=== PATIENT | male | born 1960 | race Caucasian/White ===

== ENCOUNTER → 2016-10-03 | Outpatient (CLI) | payer OTHER ==
[~2016-10-03] MED LIST: /WARF25TA; ACET500C PO; ACET50TAOT PO; ACET65TA; ALBU17IN INH; ALBU2EL PO; ALBU83IN INH; AMOX PO; AMPICILLIN PO; ANEXSIA5 PO; AUGM875T27 PO; BENZ100C5 PO; BISA5TAB7 PO; CEPA5.4L2 PO; CHLO0.124 MT; CLON-412 PO; COMP1TAB PO; DARV100T; DITR5TAB PO; DOCU10CA PO; DOXY100C PO; DOXY100T16 PO; FENT12PA TD; FLOM5CAP PO; GABA300C3 PO; IBUP-1114 PO; IBUP200C PO; ISOVUE-370 76% 100ML VIAL (Q9967) As Ordered ONE; LEVA500T PO; LIDO PO; LIPI20TA PO; LORA10TA2 PO; MAALOX PO; MAGICMW MT; MELO15TA4 PO; MOBI7.5T10 PO; MORP-38 PO; NAPR250T2 PO; NAPR250T45 PO; NAPR500T2 PO; OMEP20CA3 PO; ONDA1TAB15 PO; ONDA4SOL PO; OXYC10TA97; OXYC1SOL PO; OXYCO5TA PO; PENT10CA PO; PERC5TAB6 PO; PERC5TAB8; POLY33502 PO; PRED20TA PO; PROA1AER INH; ROXI1TAB2 PO; SENN8.6T8 PO; TAMS0.4C2 PO; TIZA2CAP3 PO; TIZA4CAP3 PO; TRAM50TA2 PO; TYLE325T5 PO; TYLE650T25 PO; VICO5TAB; [UNRECOGNIZED DRUG - OTHER] PO
--- NOTE | 2016-10-04 10:49 | REP ---
Clinical: Flank pain. Technique: Precontrast, contrast enhanced, and delayed images of the abdomen and pelvis using 100 ml Isovue 370 intravenous contrast material with delayed coronal and sagittal re-formations. Comparison: 06/04/2016. Findings: Liver demonstrates scattered small poorly defined areas of low density - some of which demonstrates surrounding enhancement concerning for metastatic disease which represents a change from prior examination. Spleen, pancreas, gallbladder, bilateral adrenal glands and kidneys appear normal. Delayed images demonstrate normal symmetric excretion into the renal collecting system and proximal ureters. The enteric system is without obstruction or acute inflammatory process. There is evidence for surgical procedure involving the bladder and small bowel in the lower abdomen/pelvis which may be related to the patient's given history of bladder cancer on comparison CT examination dated 06/04/2016. Within the right inguinal region is an ill-defined area of enhancing soft tissue which is concerning for adenopathy or metastatic deposit measuring approximately 1.5 x 2.5 cm (image 125). There is new lower abdominal (images 81-90) and retroperitoneal adenopathy with 2.1 cm nodes in the paracaval retroperitoneal space at the level of the right kidney (image 59). Few right inguinal lymph nodes are also identified measuring up to 12 mm. Atherosclerotic changes to the aorta and vasculature noted without aneurysm. No ascites. No free air. Surrounding musculoskeletal structures demonstrate age-related degenerative changes. Lung bases are clear. Impression: 1. Subtle poorly defined low density changes scattered within the liver some of which demonstrate surrounding enhancement concerning for metastatic disease representing a change from prior examination. New scattered abdominal and retroperitoneal adenopathy. 2. Small area of enhancing soft tissue in the right groin concerning for adenopathy or metastatic deposit. 3. Postsurgical changes involving the bladder and adjacent small bowel similar to prior examination. 4. Normal appearance to the bilateral kidneys and proximal to mid ureters. Signed by Jose De Jesus Brody MD 10/04/2016 10:41 A
== END ==
LOC: M RAD 07:44
PROVIDERS: ATTEND Urology
DX: R10.9 Unspecified abdominal pain (principal)
CPT/HCPCS: 74178; Q9967

== ENCOUNTER → 2016-10-03 | Outpatient (CLI) | payer OTHER ==
[~2016-10-03] MED LIST changes: -ISOVUE-370 76% 100ML VIAL (Q9967) As Ordered ONE
--- NOTE | 2016-10-03 09:21 | REP ---
CT chest without contrast, 10/03/2016: Indication: Follow up pulmonary nodules; history of laryngeal cancer. Comparison: CT chest 06/04/2016, CTA chest 11/26/2015, CT chest without contrast 03/14/2015. Findings: The thoracic aorta is without aneurysm. There are multiple subcentimeter mediastinal nodes largest 10 mm in the prevascular space, with progression. Tracheostomy tube is identified with tip 4 cm above bonny. There is bilateral hyperinflation. Minimal interstitial prominence is seen within the lung bases bilaterally. Small area of scarring is noted within the lingula and lateral basilar segment of the left lower lobe. There are no pulmonary nodules, alveolar infiltrates or pleural effusions. Visualized portions of the liver demonstrate enlarged left lobe and slightly heterogeneous parenchyma. Impression: Tracheostomy tube and right IJ venous catheter are again identified in satisfactory position. Stable mediastinal adenopathy with nodes measuring up to 10 mm in the prevascular space, with progression. Fibrotic scarring in the lingula and in the lateral right lower lobe. Signed by Josette Swain MD 10/04/2016 07:23 P
== END ==
LOC: M RAD 07:40
PROVIDERS: ATTEND Internal Medicine Pulmonary Disease
DX: R91.8 Other nonspecific abnormal finding of lung field (principal); Z93.0 Tracheostomy status

== ENCOUNTER → 2016-10-05 | Outpatient (CLI) | payer OTHER ==
[2016-10-05 16:06] LABS: MEAN CORPUSCULAR HEMOGLOBIN 33.1 pg (27.0-33.0); MEAN CORPUSCULAR HGB CONC 32.6 g/dl (32.0-36.5); MEAN CORPUSCULAR VOLUME 101.5 fl (80.0-96.0); RED CELL DISTRIBUTION WIDTH 14.1 % (11.5-14.5); WHITE BLOOD COUNT 10.7 K/mm3 (4.0-10.0)
[2016-10-05 16:14] LABS: ANION GAP 9 MEQ/L (8-16); BLOOD UREA NITROGEN 24 MG/DL (7-18); CALCIUM LEVEL 9.8 MG/DL (8.5-10.1); CARBON DIOXIDE LEVEL 27 MEQ/L (21-32); CHLORIDE LEVEL 102 MEQ/L (98-107); CREATININE FOR GFR 1.04 MG/DL (0.70-1.30); GLOMERULAR FILTRATION RATE > 60.0 (>56); GLUCOSE, FASTING 111 MG/DL (70-105); POTASSIUM SERUM 3.9 MEQ/L (3.5-5.1); SODIUM LEVEL 138 MEQ/L (136-145)
== END ==
LOC: M LAB 15:11
PROVIDERS: ATTEND Urology
DX: R10.9 Unspecified abdominal pain (principal)

== ENCOUNTER 2016-11-14 06:46 | Emergency (ER) | payer OTHER ==
[~2016-11-14 06:46] MED LIST changes: +OXYC-517 PO; -OXYCO5TA PO
--- NOTE | 2016-11-14 08:25 | EDDOCDS ---
Nurse's Notes [facility] Name: Martínez Abbasi Age: 55 yrs Sex: Male : 1960 Arrival Date: 11/14/2016 Time: 06:46 Bed 12 Private MD: Diagnosis: Tracheostomy complications Presentation: 11/14 06:53 Presenting complaint: Patient states: trach tube fell out, unable to replace it. af2 07:05 Presenting complaint: pt was on commode attempting bm when trach tube came out, attempt af2 to replace unsuccessful. states tube has been out for 5 hours. Adult Sepsis Screening: The patient does not have new or worsening altered mentation. Patient's respiratory rate is less than 22. Systolic blood pressure is greater than 100. Patient has a qSOFA score of 0- Negative Sepsis Screen. Suicide/Homicide risk assessment- the patient denies having any suicidal and/or homicidal ideations and does not present with any other emotional, behavioral or mental health complaints. 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 Transition of care: patient was not received from another setting of care. 07:05 Acuity: PHILIPPE Level 3 af2 07:05 Method Of Arrival: Walkin/Carried/Asstd af2 Triage Assessment: 07:08 General: Appears in no apparent distress, Behavior is cooperative. Pain: Denies pain. af2 Pt Declines HIV testing. Respiratory: Airway via trache Respiratory effort is even. Derm: Skin is normal. Historical: - Allergies: No known drug Allergies; - Home Meds: 1. prochlorperazine maleate 10 mg Oral tab every 6 hours as needed 2. ondansetron HCl 4 mg Oral tab every 4 hours as needed 3. hydrocodone-acetaminophen 7.5-325 mg Oral tab up to 12 daily 4. morphine 60 mg Oral CERP 1 cap 2 times per day 5. Compazine 5 mg Oral tab Unknown - PMHx: Bladder Cancer; laryngeal cancer; - PSHx: Tracheostomy; Bladder scraping X2; Bladder removed and reconstructed from Large intestine; - Social history: Smoking status: Patient uses tobacco products, current every day smoker. No barriers to communication noted, The patient speaks fluent [place] Leonean. - : The pt / caregiver states he / she is not on anticoagulants. Screenin:43 Screening information is obtained from the patient. Fall risk: No risks identified. hs1 Assistance ADL's: requires no assistance with activities of daily living. Abuse/DV Screen: The patient / caregiver reports he/she is: not in a situation that causes fear, pain or injury. Nutritional screening: No deficits noted. Advance Directives: There is no active DNR order. home support is adequate. Assessment: 07:02 General: Behavior is appropriate for age, cooperative, patient states 6 FR Fenestrated hs1 Shilley Trach. Patient tried inserting it at home. Tracheostomy is not reddened or inflamed. No drainage noted. . 07:44 General: Appears in no apparent distress, Trach tube in place. Patient coughing. hs1 Respiratory suctioning and assisting with patient securing ostomy appliance. . Respiratory: Airway is patent Respiratory effort is even, unlabored, Respiratory pattern is regular, symmetrical. 08:23 General: Appears in no apparent distress, comfortable, Behavior is appropriate for age, hs1 cooperative. Pain: Denies pain. Respiratory: Airway is patent via trache Respiratory effort is even, unlabored, Respiratory pattern is regular, symmetrical. Derm: Skin is pink, warm & dry. normal. Vital Signs: 07:08 BP 97 / 52 RA Sitting (auto/reg); Pulse 76; Resp 18; Temp 96.7(TE); Pulse Ox 96% on d R/A; Weight 72.57 kg (R); Height 5 ft. 5 in. (165.10 cm) (R); Pain 5/10; 08:19 BP 93 / 56; Pulse 101; Resp 18; Temp 96.8(O); Pulse Ox 98% on R/A; Pain 5/10; nb2 07:08 Body Mass Index 26.63 (72.57 kg, 165.10 cm) [facility] ED Course: 06:48 Patient visited by Sobeida Robertson Reg. hs2 06:48 Patient moved to Waiting hs2 06:53 Telma Tian RN is Primary Nurse. af2 06:53 Patient moved to 12 af2 06:54 Patient visited by Telma Tian RN. kas2 07:06 Triage Initiated af2 07:09 Patient visited by Martínez Centeno PCA. jrd 07:09 Patient visited by Alda Hood RN. af2 07:14 Jessenia Clemons MD is Attending Physician. sd1 07:17 Patient visited by Jessenia Clemons MD. sd1 07:43 No IV's were initiated during this patient's visit. hs1 07:44 Assist provider with tracheostomy using cuffless fenestrated # 6 Shiley. replaced. hs1 Performed by Jessenia Clemons MD Patient tolerated well. Sales Associate Fishing Soraida assisting. . 07:46 The patient / caregiver is instructed regarding the plan of care and ED course. hs1 07:47 Patient visited by Barbara Dong RN. hs1 08:05 Primary Nurse role handed off by Telma Tian,RN mlb1 08:05 Patient visited by Kaylah Zuñiga. nb2 08:05 Diet: pt given miah bernie per his request. OK with Dr. Segovia. Tolerated well. . nb2 08:11 Abhinav Venegas is Referral Physician. sd1 08:20 Patient visited by Kaylah Zuñiga. nb2 RT: 08:05 Placed PT ACCIDENTALLY EXTUBATED TRACH AT HOME, SIZE SIX UNCUFFED SHILEY TRACH ac1 INSERTED. PT JESS PROCEDURE WELL. AIRWAY PATENT, PT COUGHING SECRETIONS THROUGH IT. NO SOB. Order Results: There are currently no results for this order. Outcome: 08:11 Discharge ordered by Provider. sd1 08:24 Patient left the ED. hs1 Signatures: Jessenia Clemons MD MD sd1 Soraida Geiger,RT RT ac1 Mohan Edward RN RN mlb1 Barbara Dong, RN RN hs1 Martínez Centeno, TELEMETRY TECHNICIAN TELEMETRY TECHNICIAN jrd Alda Hood,RN RN af2 Sobeida Robertson, Reg Reg hs2 Telma Tian,MILES RN [facility]2 Kaylah Zuñiga nb2 MTDD
--- NOTE | 2016-11-14 08:25 | EDDOCDS ---
Physician Documentation [facility] Name: Martínez Abbasi Age: 55 yrs Sex: Male : 1960 Arrival Date: 11/14/2016 Time: 06:46 Bed 12 Private MD: Disposition: 11/14/16 08:11 Discharged to Home/Self Care. Impression: Tracheostomy complications. - Condition is Stable. - Discharge Instructions: Care of a Tracheostomy Tube, Care of a Tracheostomy Tube, [id number]. - Medication Reconciliation, Local Pharmacy Hours form. - Follow up: Abhinav Venegas; When: Call to arrange an appointment. - Problem is new. - Symptoms are resolved. Historical: - Allergies: No known drug Allergies; - Home Meds: 1. prochlorperazine maleate 10 mg Oral tab every 6 hours as needed 2. ondansetron HCl 4 mg Oral tab every 4 hours as needed 3. hydrocodone-acetaminophen 7.5-325 mg Oral tab up to 12 daily 4. morphine 60 mg Oral CERP 1 cap 2 times per day 5. Compazine 5 mg Oral tab Unknown - PMHx: Bladder Cancer; laryngeal cancer; - PSHx: Tracheostomy; Bladder scraping X2; Bladder removed and reconstructed from Large intestine; - Social history: Smoking status: Patient uses tobacco products, current every day smoker. No barriers to communication noted, The patient speaks fluent Luxembourgish. - : The pt / caregiver states he / she is not on anticoagulants. Vital Signs: 11/14 07:08 BP 97 / 52 RA Sitting (auto/reg); Pulse 76; Resp 18; Temp 96.7(TE); Pulse Ox 96% on jrd R/A; Weight 72.57 kg / 159.99 lbs (R); Height 5 ft. 5 in. (165.10 cm) (R); Pain 5/10; 08:19 BP 93 / 56; Pulse 101; Resp 18; Temp 96.8(O); Pulse Ox 98% on R/A; Pain 5/10; nb2 07:08 Body Mass Index 26.63 (72.57 kg, 165.10 cm) jrcynthia MDM: 07:20 Call Respiratory ordered. sd1 07:24 Call Respiratory complete. jrd 07:41 Financial registration complete. lg Signatures: Jessenia Clemons MD MD sd1 Delaney Villarreal, Reg Reg lg Barbara Dong, RN RN hs1 Martínez Centeno, AUTOMOBILE UPHOLSTERY TRIM INSTALLER AUTOMOBILE UPHOLSTERY TRIM INSTALLER jrd Alda Hood,RN RN af2 HUSSEIND
[2016-11-15] MEDS ORDERED: ZOFR8TAB PO (20:11)
[2016-11-15] MEDS ORDERED: MORP60TA PO (20:11)
[2016-11-15] MEDS ORDERED: PROC10TA PO (20:11)
[2016-11-15] MEDS ORDERED: HYDR-3716 PO (20:11)
[2016-11-15] MEDS ORDERED: PROM25TA PO (20:11)
--- NOTE | 2016-11-16 09:25 | EDDOCDS ---
Nurse's Notes [facility] Name: Martínez Abbasi Age: 55 yrs Sex: Male : 1960 Arrival Date: 11/14/2016 Time: 06:46 Bed 12 Private MD: Diagnosis: Tracheostomy complications Presentation: 11/14 06:53 Presenting complaint: Patient states: trach tube fell out, unable to replace it. af2 07:05 Presenting complaint: pt was on commode attempting bm when trach tube came out, attempt af2 to replace unsuccessful. states tube has been out for 5 hours. Adult Sepsis Screening: The patient does not have new or worsening altered mentation. Patient's respiratory rate is less than 22. Systolic blood pressure is greater than 100. Patient has a qSOFA score of 0- Negative Sepsis Screen. Suicide/Homicide risk assessment- the patient denies having any suicidal and/or homicidal ideations and does not present with any other emotional, behavioral or mental health complaints. Status: Patient is not a technical services librarian or dependent. Transition of care: patient was not received from another setting of care. 07:05 Acuity: PHILIPPE Level 3 af2 07:05 Method Of Arrival: Walkin/Carried/Asstd af2 Triage Assessment: 07:08 General: Appears in no apparent distress, Behavior is cooperative. Pain: Denies pain. af2 Pt Declines HIV testing. Respiratory: Airway via trache Respiratory effort is even. Derm: Skin is normal. Historical: - Allergies: No known drug Allergies; - Home Meds: 1. prochlorperazine maleate 10 mg Oral tab every 6 hours as needed 2. ondansetron HCl 4 mg Oral tab every 4 hours as needed 3. hydrocodone-acetaminophen 7.5-325 mg Oral tab up to 12 daily 4. morphine 60 mg Oral CERP 1 cap 2 times per day 5. Compazine 5 mg Oral tab Unknown - PMHx: Bladder Cancer; laryngeal cancer; - PSHx: Tracheostomy; Bladder scraping X2; Bladder removed and reconstructed from Large intestine; - Social history: Smoking status: Patient uses tobacco products, current every day smoker. No barriers to communication noted, The patient speaks fluent Somali. - : The pt / caregiver states he / she is not on anticoagulants. Screenin:43 Screening information is obtained from the patient. Fall risk: No risks identified. hs1 Assistance ADL's: requires no assistance with activities of daily living. Abuse/DV Screen: The patient / caregiver reports he/she is: not in a situation that causes fear, pain or injury. Nutritional screening: No deficits noted. Advance Directives: There is no active DNR order. home support is adequate. Assessment: 07:02 General: Behavior is appropriate for age, cooperative, patient states 6 FR Fenestrated hs1 Shilley Trach. Patient tried inserting it at home. Tracheostomy is not reddened or inflamed. No drainage noted. . 07:44 General: Appears in no apparent distress, Trach tube in place. Patient coughing. hs1 Respiratory suctioning and assisting with patient securing ostomy appliance. . Respiratory: Airway is patent Respiratory effort is even, unlabored, Respiratory pattern is regular, symmetrical. 08:23 General: Appears in no apparent distress, comfortable, Behavior is appropriate for age, hs1 cooperative. Pain: Denies pain. Respiratory: Airway is patent via trache Respiratory effort is even, unlabored, Respiratory pattern is regular, symmetrical. Derm: Skin is pink, warm & dry. normal. Vital Signs: 07:08 BP 97 / 52 RA Sitting (auto/reg); Pulse 76; Resp 18; Temp 96.7(TE); Pulse Ox 96% on d R/A; Weight 72.57 kg (R); Height 5 ft. 5 in. (165.10 cm) (R); Pain 5/10; 08:19 BP 93 / 56; Pulse 101; Resp 18; Temp 96.8(O); Pulse Ox 98% on R/A; Pain 5/10; nb2 07:08 Body Mass Index 26.63 (72.57 kg, 165.10 cm) [facility] ED Course: 06:48 Patient visited by Sobeida Robertson Reg. hs2 06:48 Patient moved to Waiting hs2 06:53 Telma Tian RN is Primary Nurse. af2 06:53 Patient moved to 12 af2 06:54 Patient visited by Telma Tian RN. kas2 07:06 Triage Initiated af2 07:09 Patient visited by Martínez Centeno PCA. jrd 07:09 Patient visited by Alda Hood RN. af2 07:14 Jessenia Clemons MD is Attending Physician. sd1 07:17 Patient visited by Jessenia Clemons MD. sd1 07:43 No IV's were initiated during this patient's visit. hs1 07:44 Assist provider with tracheostomy using cuffless fenestrated # 6 Shiley. replaced. hs1 Performed by Jessenia Clemons MD Patient tolerated well. Hydro Station Operator Soraida assisting. . 07:46 The patient / caregiver is instructed regarding the plan of care and ED course. hs1 07:47 Patient visited by Barbara Dong RN. hs1 08:05 Primary Nurse role handed off by Telma Tian,MILES mlb1 08:05 Patient visited by Kaylah Zuñiga. nb2 08:05 Diet: pt given miah bernie per his request. OK with Dr. Segovia. Tolerated well. . nb2 08:11 Abhinav Venegas is Referral Physician. sd1 08:20 Patient visited by Kaylah Zuñiga. nb2 08:37 [facility] Payment Agreement was scanned into [employer] and attached to record. lg RT: 08:05 Placed PT ACCIDENTALLY EXTUBATED TRACH AT HOME, SIZE SIX UNCUFFED SHILEY TRACH ac1 INSERTED. PT JESS PROCEDURE WELL. AIRWAY PATENT, PT COUGHING SECRETIONS THROUGH IT. NO SOB. Order Results: There are currently no results for this order. Outcome: 08:11 Discharge ordered by Provider. sd1 08:24 Patient left the ED. hs1 Signatures: Jessenia Clemons MD MD sd1 Delaney Villarreal, Reg Reg lg Soraida Geiger,RT RT ac1 Mohan Edward RN RN mlb1 Barbara Dong, MILES RN hs1 Martínez Centeno, POLICE AND FIRE DISPATCHER POLICE AND FIRE DISPATCHER Alda Barrett,RN RN af2 Sobeida Robertson, Reg Reg hs2 Telma TianRN RN [facility] Kaylah Zuñiga nb Chart Complete MTDD
--- NOTE | 2016-11-16 09:25 | EDDOCDS ---
Physician Documentation [facility] Name: Martínez Abbasi Age: 55 yrs Sex: Male : 1960 Arrival Date: 11/14/2016 Time: 06:46 Bed 12 Private MD: Disposition: 11/14/16 08:11 Discharged to Home/Self Care. Impression: Tracheostomy complications. - Condition is Stable. - Discharge Instructions: Care of a Tracheostomy Tube, Care of a Tracheostomy Tube, [id number]. - Medication Reconciliation, Local Pharmacy Hours form. - Follow up: Abhinav Venegas; When: Call to arrange an appointment. - Problem is new. - Symptoms are resolved. Historical: - Allergies: No known drug Allergies; - Home Meds: 1. prochlorperazine maleate 10 mg Oral tab every 6 hours as needed 2. ondansetron HCl 4 mg Oral tab every 4 hours as needed 3. hydrocodone-acetaminophen 7.5-325 mg Oral tab up to 12 daily 4. morphine 60 mg Oral CERP 1 cap 2 times per day 5. Compazine 5 mg Oral tab Unknown - PMHx: Bladder Cancer; laryngeal cancer; - PSHx: Tracheostomy; Bladder scraping X2; Bladder removed and reconstructed from Large intestine; - Social history: Smoking status: Patient uses tobacco products, current every day smoker. No barriers to communication noted, The patient speaks fluent Vietnamese. - : The pt / caregiver states he / she is not on anticoagulants. Vital Signs: 11/14 07:08 BP 97 / 52 RA Sitting (auto/reg); Pulse 76; Resp 18; Temp 96.7(TE); Pulse Ox 96% on jrd R/A; Weight 72.57 kg / 159.99 lbs (R); Height 5 ft. 5 in. (165.10 cm) (R); Pain 5/10; 08:19 BP 93 / 56; Pulse 101; Resp 18; Temp 96.8(O); Pulse Ox 98% on R/A; Pain 5/10; nb2 07:08 Body Mass Index 26.63 (72.57 kg, 165.10 cm) [facility] MDM: 07:20 Call Respiratory ordered. sd1 07:24 Call Respiratory complete. jrd 07:41 Financial registration complete. lg 08:37 [facility] Payment Agreement was scanned into [employer] and attached to record. lg Signatures: Jessenia Clemons MD MD sd1 Delaney Villarreal, Reg Reg lg Barbara Dong, RN RN hs1 Martínez Centeno, REVA SENIOR DIRECTOR MARKETING jrd Alda Hood,RN RN af2 The chart was reviewed and I authenticate all verbal orders and agree with the evaluation and treatment provided.Attachments: 08:37 [facility] Payment Agreement lg Chart Complete MTDD
--- NOTE | 2016-11-16 09:25 | EDDOCDS ---
Physician Documentation [facility] Name: Martínez Abbasi Age: 55 yrs Sex: Male : 1960 Arrival Date: 11/14/2016 Time: 06:46 Bed 12 Private MD: Disposition: 11/14/16 08:11 Discharged to Home/Self Care. Impression: Tracheostomy complications. - Condition is Stable. - Discharge Instructions: Care of a Tracheostomy Tube, Care of a Tracheostomy Tube, Lsor-[id number]. - Medication Reconciliation, Local Pharmacy Hours form. - Follow up: Abhinav Venegas; When: Call to arrange an appointment. - Problem is new. - Symptoms are resolved. Historical: - Allergies: No known drug Allergies; - Home Meds: 1. prochlorperazine maleate 10 mg Oral tab every 6 hours as needed 2. ondansetron HCl 4 mg Oral tab every 4 hours as needed 3. hydrocodone-acetaminophen 7.5-325 mg Oral tab up to 12 daily 4. morphine 60 mg Oral CERP 1 cap 2 times per day 5. Compazine 5 mg Oral tab Unknown - PMHx: Bladder Cancer; laryngeal cancer; - PSHx: Tracheostomy; Bladder scraping X2; Bladder removed and reconstructed from Large intestine; - Social history: Smoking status: Patient uses tobacco products, current every day smoker. No barriers to communication noted, The patient speaks fluent Indonesian. - : The pt / caregiver states he / she is not on anticoagulants. Vital Signs: 11/14 07:08 BP 97 / 52 RA Sitting (auto/reg); Pulse 76; Resp 18; Temp 96.7(TE); Pulse Ox 96% on jrd R/A; Weight 72.57 kg / 159.99 lbs (R); Height 5 ft. 5 in. (165.10 cm) (R); Pain 5/10; 08:19 BP 93 / 56; Pulse 101; Resp 18; Temp 96.8(O); Pulse Ox 98% on R/A; Pain 5/10; nb2 07:08 Body Mass Index 26.63 (72.57 kg, 165.10 cm) [facility] MDM: 07:20 Call Respiratory ordered. sd1 07:24 Call Respiratory complete. jrd 07:41 Financial registration complete. lg 08:37 [facility] Payment Agreement was scanned into [email or web address] and attached to record. lg Signatures: Jessenia Clemons MD MD sd1 Delaney Villarreal, Reg Reg lg Barbara Dong, RN RN hs1 Martínez Centeno, [employer] PHYSICS TECHNICAL OFFICER jrd Alda Hood,RN RN af2 The chart was reviewed and I authenticate all verbal orders and agree with the evaluation and treatment provided.Attachments: 08:37 [facility] Payment Agreement lg Chart Complete MTDD
== END 2016-11-14 08:24 | disposition home or self-care (01) ==
LOC: M ED 06:46
DX: J95.09 Other tracheostomy complication (principal); C32.9 Malignant neoplasm of larynx, unspecified; C67.9 Malignant neoplasm of bladder, unspecified; F17.210 Nicotine dependence, cigarettes, uncomplicated; Z79.899 Other long term (current) drug therapy

== ENCOUNTER 2016-11-15 16:05 | Inpatient (IN) | payer OTHER ==
[~2016-11-15] VITALS: Ht 165.1 cm; Wt 74.2 kg
--- NOTE | 2016-11-15 16:58 | REP ---
Clinical: Shortness of breath. Technique: PA and lateral. Comparison: 03/24/2016. Findings: Ofocea-S-Ywbu with tip in the SVC remains stable. Tracheostomy overlies the airway. Mediastinum and cardiac silhouette are normal. The lung oliveira are clear and without acute consolidation, effusion, or pneumothorax. Skeletal structures are intact. Impression: Stable chest x-ray. No acute cardiopulmonary process appreciated. Signed by Jose De Jesus Brody MD 11/15/2016 04:50 P
[2016-11-15 17:30] LABS: DIFF SLIDE NUMBER 251; MEAN CORPUSCULAR HEMOGLOBIN 28.4 pg (27.0-33.0); MEAN CORPUSCULAR HGB CONC 28.9 g/dl (32.0-36.5); MEAN CORPUSCULAR VOLUME 98.6 fl (80.0-96.0); PLATELET COUNT, AUTOMATED 226 k/mm3 (150-450)
[2016-11-15 17:39] LABS: CALCIUM LEVEL 9.8 MG/DL (8.5-10.1); CREATININE FOR GFR 2.84 MG/DL (0.70-1.30); GLOMERULAR FILTRATION RATE 24.8 (>56)
[2016-11-15 17:41] LABS: WHITE BLOOD COUNT 34.1 K/mm3 (4.0-10.0)
[2016-11-15 17:44] LABS: POTASSIUM SERUM 6.1 MEQ/L (3.5-5.1)
[2016-11-15 17:46] LABS: BANDS 4 % (< 11)
[2016-11-15 17:47] LABS: ANISOCYTOSIS 1+; HYPOCHROMASIA 2+; POLYCHROMASIA 1+
[2016-11-15] MEDS ORDERED: CALCIUM CHLORIDE 10% 1 GM/10 ML SYR As Ordered ONE ×2 (18:09→18:13)
[2016-11-15] MEDS ORDERED: HumuLIN R (REGULAR) INSULIN (NovoLIN R) **100U/ML** PER UNIT As Ordered ONE ×2 (18:09→19:31)
[2016-11-15] MEDS ORDERED: CEFEPIME INJ 2 GM VIAL (MAXIPIME) (J0692) As Ordered ONE (18:34)
[2016-11-15 18:37] LABS: VENOUS BASE EXCESS -2.4 (-2.0-2.0); VENOUS O2 SATURATION 99.2 % (60.0-80.0); VENOUS PARTIAL PRESSURE CO2 38.1 mmHg (38.0-50.0); VENOUS PARTIAL PRESSURE O2 138.7 mmHg (30.0-50.0); VENOUS STANDARD HCO3 22.5 MEQ/L; VENOUS TOTAL CO2 23.5 MEQ/L (24.0-28.0)
[2016-11-15 18:41] LABS: INR 1.22
[2016-11-15 18:43] LABS: ABG BASE EXCESS -2.1 (-2.0-2.0); ABG DEVICE NASAL CANN; ABG HCO3 23.2 MEQ/L (22.0-26.0); ABG PARTIAL PRESSURE CO2 42.1 mmHg (35.0-45.0); ABG PARTIAL PRESSURE O2 104.5 mmHg (75.0-100.0); ABG STANDARD HCO3 22.7 MEQ/L (22.0-26.0); ABG TOTAL CO2 24.5 MEQ/L (22.0-29.0); ABG pH (ARTERIAL) 7.359 UNITS (7.350-7.450)
[2016-11-15] MEDS ORDERED: INSULIN HUMAN REGULAR 100 UNITS in NS 99 ML IV SCH (19:00)
[2016-11-15] MEDS ORDERED: D5W/0.45% SODIUM CHLORIDE 1,000 ML IV SCH (19:33)
[2016-11-15 19:40] LABS: ALBUMIN 1.9 GM/DL (3.2-5.2); ALBUMIN/GLOBULIN RATIO 0.42 (1.00-1.93); BILIRUBIN,DIRECT 0.2 MG/DL (0.0-0.2); BILIRUBIN,TOTAL 0.3 MG/DL (0.2-1.0); CALCIUM LEVEL 10.6 MG/DL (8.5-10.1); CREATININE FOR GFR 2.76 MG/DL (0.70-1.30); FREE T4 0.8 NG/DL (0.76-1.46); GLOMERULAR FILTRATION RATE 25.6 (>56); TOTAL PROTEIN 6.4 GM/DL (6.4-8.2)
[2016-11-15] MEDS ORDERED: CEFEPIME HCL 1 GM in D5W MINI-BAG PLUS 50 ML IV SCH (19:45)
[2016-11-15] MEDS ORDERED: VANCOMYCIN HCL 750 MG, VIAL MATE ADAPTER 1 EACH in D5W 250 ML IV SCH (19:45)
[2016-11-15 19:56] LABS: POTASSIUM SERUM 5.5 MEQ/L (3.5-5.1)
[2016-11-15] MEDS ORDERED: MORP60TA PO (20:11)
[2016-11-15] MEDS ORDERED: PROC10TA PO (20:11)
[2016-11-15] MEDS ORDERED: PROM25TA PO (20:11)
[2016-11-15] MEDS ORDERED: HYDR-3716 PO (20:11)
[2016-11-15] MEDS ORDERED: ZOFR8TAB PO (20:11)
--- NOTE | 2016-11-15 20:29 | PHACANCOPD ---
PHARMACY VANCOMYCIN DOSING Pt Demographics Demographics Patient Age:55 , Weight: , Gender: male Adjusted Body Weight Date: 11/15/16, Adjusted Body Weight: Kg Events Past 24 Hours Events Past 24 Hours: YES: Change in CrCl, Elevation in WBC, NO: Dialysis, Diuretic Therapy, Fever, Other, Pending Diagnostics, Pending Procedures Vancomycin Vancomycin indication: SEPSIS Vancomycin Target Ranges: 15-20 mcg/ml Vancomycin Load Y/N: No Load Dose Date Time Vancomycin Load Dose: Date: Time: Vancomycin Dose Date: 11/15/16. Current Vancomycin Dose: [1g IV q24h @21] Intermittent Dosing?: No Labs Labs Item Value Date Time White Blood Count 34.1 K/mm3 *H 11/15/16 1701 Creatinine 2.84 MG/DL H 11/15/16 1701 Creatinine 2.76 MG/DL H 11/15/16 1841 C-Reactive Protein, Quantitative 26.50 MG/DL H 11/15/16 1841 Micro Microbiology 11/15/16 Blood Culture, Received Pending 11/15/16 Blood Culture, Received Pending 11/15/16 Urine Culture, Received Pending Creatinine Clearance Date:11/15/16. Creatinine Clearance: [22 ml/min]. Assessment and Plan Maintaining Current Dose?: Yes Reason for dose change: No Dose Change Pharmacist Note Pharmacist Note Date: 11/15/16. Pharmacist note: pt has been admitted for sepsis, he has been started on cefepime and vancomycin. He has a Hx of MRSA - last urine culture on 09/26/15 DERRICK = 1. He is currently in acute renal failure, baseline SCr is ~1. I have started him on 1g IV q24h to be reassessed tomorrow morning based on renal function. We will continue to monitor. Kulwant Tian Pharm.D. Nov 15, 2016 20:29
[2016-11-15] MEDS ORDERED: PROMETHAZINE INJ 25 MG/ML VIAL (J2550) IV PRN (20:30)
--- NOTE | 2016-11-15 20:32 | REP ---
Clinical: Abdominal pain history of malignancy. Comparison: 10/03/2016. Findings: The liver demonstrates diffuse, marked metastatic disease which is considerably increased from prior examination. Moderate ascites along with retroperitoneal, mesenteric, and upper abdominal adenopathy is also increased and again consistent with metastatic disease. Fluid and soft tissue in a supraumbilical hernia is identified which may represent small nodular soft tissue metastatic deposits which is also increased from prior examination. The patient is noted to be status post bladder resection for neoplasm with neobladder creation and anastomoses to a small bowel which remain stable in appearance. Spleen, pancreas, gallbladder, bilateral adrenal glands and kidneys are relatively normal for noncontrast evaluation. Bilateral perinephric stranding is nonspecific and there is no evidence for hydroureteronephrosis. The enteric system is without obstruction or acute inflammatory process and scattered colonic diverticula noted without acute diverticulitis. No free air. Atherosclerotic changes of the vasculature noted without aortic aneurysm. Skeletal structures demonstrate diffuse degenerative changes as well as mixed sclerotic and lytic lesions predominant noted in the visualized thoracic and lumbar vertebral bodies as well as within the left bjorn sacrum which are increased from prior examination and consistent with osseous metastatic disease. The lung bases demonstrate chronic changes with bibasilar atelectasis and evidence for old healed left rib fracture. Impression: 1. Increasing hepatic metastatic disease, ascites, retroperitoneal, mesenteric and upper abdominal adenopathy and osseous lesions all consistent with increasing metastatic disease. 2. Postsurgical changes related to bladder resection and recreation remains stable and relatively normal. The kidneys are without hydroureteronephrosis. 3. The small and large bowel are without obstruction or obvious acute inflammatory process. Signed by Jose De Jesus Brody MD 11/15/2016 08:24 P
[2016-11-15] MEDS ORDERED: MORPHINE 4 MG/ML 1ML SYRINGE As Ordered ONE (20:34)
--- NOTE | 2016-11-15 20:58 | HPE ---
DATE OF ADMISSION: 11/15/2016 PRIMARY CARE PROVIDER: Dr. Martínez Edwards UROLOGIST: Dr. Miller ONCOLOGIST: Dr. Morel at [facility] Hematology/Oncology CHIEF COMPLAINT: Sudden difficulty in breathing from this morning, abdominal pain and several episodes of vomiting from this a.m. PAST MEDICAL HISTORY: 1. 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 2. 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 Underwent radical cystoprostatectomy, bilateral lymph node dissection and intracorporal neobladder urinary diversion in 2016. 3.Recurrence of vocal cord cancer around tracheostomy stoma in 2016. Patient restarted on radiation and chemotherapy. Last chemotherapy two weeks ago given by [facility]. Has tracheostomy since 2014. 4. Hypercholesterolemia. 5. Chronic obstructive pulmonary disease. 6. Hypertension. HISTORY OF PRESENT ILLNESS This is a 55-year-old male with laryngeal cancer since 2013 and tracheostomy since 2014 with recurrence of squamous cell cancer around the stoma in 2016. Bladder cancer with lymph node metastases in 2016. Recently found to have liver metastases and retroperitoneal lymphadenopathy in CT scan of September 2016 presented to the emergency room with one day history of sudden onset difficulty in breathing and also multiple episodes of vomiting, retrosternal and epigastric pain and odynophagia. Patient in the emergency department (ED) coughed up large mucous plug after which his breathing improved and he was a little comfortable. Lab work was done which showed the patient to have hyperglycemia with sugars greater than 800, hyperkalemia with potassium of 6.1, hyponatremia with sodium of 121 ad acute kidney injury with a creatinine of 2.4 and also had a WBC count of greater than 34,000. Patient has also a dirty urine. Patient was also found to have a lactate of 5.8. Patient was diagnosed with sepsis, source yet undetermined, could be urine or intraabdominal. Hyperglycemia, acute kidney injury and admitted to the hospital. Patient's last chemotherapy was two weeks ago. Patient was given 2 liters of normal saline as per sepsis protocol in the emergency department (ED). He was also given cefepime and vancomycin, received 10 units of IV insulin and started on an insulin infusion. Patient does not have any advanced directives in place. I started discussion about advanced directives however patient and patient's exam- want to discuss with their adult children, son and daughter, before he decides what to do. At present patient is being admitted to the service of the family practitioners for sepsis. Acute kidney injury, hypoglycemia. PAST SURGICAL HISTORY: 1. Tracheostomy in 2015. 2. Vocal cord biopsy and surgery in 2013 and 2016. 3. Radical cystoprostatectomy with neobladder creation in 2016. 4. Knee surgeries. ALLERGIES: No known allergies. HOME MEDICATIONS: - Compazine 5 mg - hydrocodone 7.5/325 up to 12 daily - Morphine sulfate 60 mg by mouth twice a day - Zofran 8 mg by mouth every 8 hours as needed - Promethazine 25mg by mouth every 8 hours as needed SOCIAL HISTORY: Ex-smoker. Does not use alcohol or recreational drugs. FAMILY HISTORY: Not pertinent. REVIEW OF SYSTEMS: All 10-point review of systems are negative except those mentioned in the history of present illness. PHYSICAL EXAMINATION: VITAL SIGNS: Blood pressure 105/68, pulse 124, respiratory rate 18, temperature 99.1, pulse oximetry 94% on 35% Venturi mask. GENERAL: Patient awake, alert, and oriented times three. Sitting up in bed in mild distress. HEENT: Normocephalic, atraumatic. Moist mucous membranes. Anicteric eyes. CHEST: Bilateral basal crackles mild wheezing. CARDIOVASCULAR: S1, S2, tachycardiac, regular. No murmurs, rubs or gallops. ABDOMEN: Generalized tenderness. Distended but not rigid. Decreased bowel sounds. EXTREMITIES: No edema. LABORATORY DATA: WBC 34.1, hemoglobin 9.1, platelet 226, sodium 121, potassium 6.1, chloride 82, bicarbonate 24, BUN 46, creatinine 2.8, glucose 883, lactic acid 5.8, calcium 9.8. UA with 1+ leukocyte esterase, 30 WBCs, 54 RBCs, bacteria positive, nitrate negative, <<11:10>> 1.22 Chest x-ray no acute cardiopulmonary process. ASSESSMENT AND PLAN: This is a 55-year-old male with laryngeal cancer with metastases to skin, liver, retroperitoneal lymph nodes, bladder cancer with metastases to lymph nodes presented with sepsis, acute kidney injury, hypoglycemia. PLAN: For sepsis no source yet identified. Patient does have a dirty urine. We will also get CT abdomen and pelvis without contrast. Blood cultures and urine cultures have been ordered. We will start the patient on cefepime and vancomycin for broad spectrum empirical coverage. We will check lactate in four hours. We will keep 2.2 of normal saline followed by maintenance. Hyperglycemia. We will start patient on insulin infusion, check sugars every hour, continue with IV fluid normal saline for now and once sugar is less than 200, we will change to half normal saline dextrose. Acute kidney injury. Patient refused catheterization possibly due to hyperglycemia and dehydration. We will continue to monitor intake and output. Hyponatremia, normal level after taking into account the high sugars. Hyperkalemia due to hyperglycemia, we will not treat as such, as I expect it to normalize once the sugar starts coming down. Deep vein thrombosis prophylaxis. We will place the patient on Lovenox. GI prophylaxis has been ordered. [facility]
--- NOTE | 2016-11-15 21:44 | EDDOCDS ---
Nurse's Notes [facility] Name: Martínez Abbasi Age: 55 yrs Sex: Male : 1960 Arrival Date: 11/15/2016 Time: 16:05 Bed 12 Private MD: Diagnosis: Sepsis, unspecified organism;Hyperglycemia, unspecified;Acute kidney failure;Hypo-osmolality and hyponatremia;Malignant neoplasm of larynx Presentation: 11/15 16:21 Presenting complaint: EMS states: Patient family called EMS for respiratory distress. js13 Patient was supposed to go to [place] today to have inner cannula placed and tracheostomy cleaned and checked. Patient was too weak to go. EMS suctioned large amount of thick brown sputum out of trach. Suicide/Homicide risk assessment- the patient denies having any suicidal and/or homicidal ideations and does not present with any other emotional, behavioral or mental health complaints. Status: Patient is not a child protective services social worker or dependent. Transition of care: patient was not received from another setting of care. Care prior to arrival: See EMS report. 16:21 Acuity: PHILIPPE Level 3 [facility] 16:21 Method Of Arrival: Ambulance [facility] 16:26 Adult Sepsis Screening: The patient does not have new or worsening altered mentation. js13 Patient's respiratory rate is less than 22. Systolic blood pressure is greater than 100. Patient has a qSOFA score of 0- Negative Sepsis Screen. Triage Assessment: 16:24 General: Appears comfortable, Behavior is appropriate for age, cooperative. Pain: js13 Denies pain. Pt Declines HIV testing. Neurological: Level of Consciousness is awake, alert, obeys commands. Respiratory: Onset: The symptoms/episode began/occurred today, Airway via trache Respiratory effort is even, unlabored, Respiratory pattern is regular, Breath sounds with rhonchi Breath sounds are diminished. Derm: Skin is pink, warm & dry. Historical: - Allergies: no known allergies; - Home Meds: 1. Compazine 5 mg Oral tab Unknown 2. hydrocodone-acetaminophen 7.5-325 mg Oral tab up to 12 daily 3. morphine 60 mg Oral CERP 1 cap 2 times per day 4. ondansetron HCl 4 mg Oral tab every 4 hours as needed 5. prochlorperazine maleate 10 mg Oral tab every 6 hours as needed - PMHx: Bladder Cancer; laryngeal cancer; - PSHx: Tracheostomy; Bladder scraping X2; Bladder removed and reconstructed from Large intestine; - The history from nurses notes was reviewed: and I agree with what is documented. - Social history: Smoking status: Patient states former smoker of tobacco. Patient is speech impaired. - Family history: Not pertinent. - : The pt / caregiver states he / she is not on anticoagulants. Home medication list is obtained from the patient. - Hospitalizations: : No recent hospitalization is reported. - Exposure Risk Screening:: None identified. - Immunization history:: All immunizations up-to-date. - Social history:: the patient is a non-smoker, the patient does not drink alcohol. Screenin:27 Screening information is obtained from the patient. Fall risk: No risks identified. js13 Assistance ADL's: Requires assistance with. Abuse/DV Screen: The patient / caregiver reports he/she is: not in a situation that causes fear, pain or injury. Nutritional screening: No deficits noted. Advance Directives: There is no active DNR order. home support is adequate. Assessment: 16:26 General: Appears comfortable, Behavior is appropriate for age, cooperative. Pain: js13 Denies pain. Neurological: Level of Consciousness is awake, alert. Cardiovascular: Rhythm is sinus tachycardia Chest pain is denied. Respiratory: Airway via trache Respiratory effort is even, unlabored, Respiratory pattern is regular, Sputum is thick, brown. Respiratory: Breath sounds with rhonchi Breath sounds are diminished. Derm: Skin is pink, warm & dry. 17:15 General: Appears comfortable, Behavior is appropriate for age, cooperative. Pain: js13 Denies pain. Neurological: Level of Consciousness is awake, alert. Cardiovascular: Rhythm is sinus tachycardia Chest pain is denied. Respiratory: Airway via trache Respiratory effort is even, unlabored, Respiratory pattern is regular, Sputum is thick, brown. Derm: Skin is pink, warm & dry. 19:15 Adult Sepsis Screening: The patient does not have new or worsening altered mentation. mlc Patient's respiratory rate is less than 22. Systolic blood pressure is greater than 100. Patient has a qSOFA score of 0- Negative Sepsis Screen. 19:15 General: Appears comfortable, ill. General: Family at bedside, Dr. Bustillo at bedside. . [facility] Pain: Denies pain. Neurological: Level of Consciousness is awake, alert, obeys commands, Oriented to person, place, time. Respiratory: Airway is patent via trache Respiratory effort is even, unlabored, Respiratory pattern is regular. 19:55 General: Appears ill. Pain: Denies pain. Neurological: Level of Consciousness is awake, mlc alert, Oriented to person, place, time. Cardiovascular: Heart tones S1 S2 present Rhythm is sinus tachycardia Chest pain is denied. Respiratory: Airway is patent via trache Respiratory effort is even, unlabored, Respiratory pattern is regular, Breath sounds with rhonchi Breath sounds are diminished. GI: Bowel sounds present X 4 quads. Derm: Skin is pale. 20:18 Reassessment: IV discontinued accidently in CT. Bleeding controlled. . mlc 20:49 Reassessment: Patient appears in no apparent distress at this time. pt resting mlc comfortably in bed, resp easy/unlabored. IV fluids infusing per order. Family at bedside. 21:09 General: pt reports decrease in pain to a 6/10. pt across chest and low back. . mlc 21:40 General: Appears comfortable, ill, Behavior is cooperative. Pain: Pain currently is 6 mlc out of 10 on a pain scale. Neurological: Level of Consciousness is awake, alert, Oriented to person, place, time. Respiratory: Airway is patent Respiratory effort is even, unlabored, Respiratory pattern is regular, Breath sounds with rhonchi Breath sounds are diminished. Derm: Skin is pale. Vital Signs: 16:19 BP 121 / 73; Pulse 139; Resp 20; Temp 99.1(TE); Pulse Ox 94% on 2 lpm NC; dem1 16:24 Weight 72.57 kg; Height 5 ft. 5 in. (165.10 cm); dem1 17:06 BP 105 / 64 (auto/); js13 17:06 Pulse 128 MON; Resp 18; Pulse Ox 93% on 35% Venturi mask; js13 17:21 BP 105 / 68 (auto/); js13 17:21 Pulse 124 MON; Resp 18; Pulse Ox 94% on 35% Venturi mask; js13 17:35 Pulse 122 MON; Pulse Ox 96% ; mlc 17:36 BP 104 / 71 (auto/); mlc 17:51 Pulse 118 MON; Pulse Ox 97% ; mlc 17:51 BP 107 / 62 (auto/); mlc 18:05 Pulse 114 MON; Pulse Ox 98% ; mlc 18:06 BP 94 / 60 (auto/); mlc 18:20 Pulse 118 MON; Pulse Ox 98% ; mlc 18:21 BP 103 / 57 (auto/); mlc 18:35 Pulse 114 MON; Pulse Ox 98% ; mlc 18:36 BP 103 / 63 (auto/); mlc 18:52 Pulse 122 MON; Pulse Ox 97% ; mlc 18:53 BP 111 / 64 (auto/); mlc 19:05 Pulse 116 MON; Pulse Ox 95% ; mlc 19:06 BP 111 / 68 (auto/); mlc 19:21 BP 115 / 74 (auto/); mlc 19:21 Pulse 108 MON; Pulse Ox 98% ; mlc 19:35 Pulse 104 MON; Pulse Ox 98% ; mlc 19:36 BP 106 / 64 (auto/); mlc 19:50 Pulse 102 MON; Pulse Ox 99% ; mlc 19:51 BP 121 / 81 (auto/); mlc 20:25 Pulse 100 MON; Pulse Ox 99% ; mlc 20:26 Pulse 100 MON; Pulse Ox 99% ; mlc 20:27 BP 104 / 61 (auto/); mlc 20:35 Pulse 98 MON; Pulse Ox 99% ; mlc 20:36 BP 107 / 65 (auto/); mlc 20:49 Pulse 96 MON; Pulse Ox 100% ; mlc 20:50 Pulse 96 MON; Pulse Ox 100% ; mlc 20:51 BP 110 / 61 (auto/); mlc 21:05 Pulse 100 MON; Resp 20; Pulse Ox 99% ; Pain 6/10; mlc 21:06 BP 113 / 69 (auto/); mlc 21:31 Pulse 94 MON; Resp 18; Temp 96.5; Pulse Ox 99% ; Pain 6/10; mlc 21:32 BP 114 / 55 (auto/); mlc 16:24 Body Mass Index 26.62 (72.57 kg, 165.10 cm) [facility] Vitals: 16:19 Log In Time N/A - ambulance arrival. [facility] ED Course: 16:06 Patient visited by Sabine Hector, Upkeep Worker. deg 16:06 Patient moved to Waiting deg 16:07 Emma Hicks,RN is Primary Nurse. deg 16:07 Patient moved to 12 deg 16:20 Patient visited by Jenny Poole. dem1 16:23 Triage Initiated js13 16:24 Patient visited by Jenny Poole. dem1 16:27 Patient visited by Emma Hicks,MILES. js13 16:27 The patient / caregiver is instructed regarding the plan of care and ED course. js13 16:29 Saul Miller MD is Attending Physician. pc 16:32 Patient visited by Saul Miller MD. pc 16:50 O2 via Venturi mask \T\ 9L/min - 35%. js13 17:04 CBC with Diff Sent. js13 17:04 MED Profile Sent. js13 17:05 Accessed using accessed w/ # 20 Salas needle, sterile technique, per hospital protocol. js13 InfusaPort in patient's anterior aspect of right upper chest. Good blood return. Flushes easily. No procedures done that require assistance. Labs drawn. (by ED staff). Sent per order to lab. Labs/Blood culture drawn. 17:16 Patient visited by Emma Hicks RN. js13 17:45 Chest, 2 View (pa\E\lat) Returned. EDMS 17:54 DIFFERENTIAL NO CHARGE Sent. mcp 17:55 [facility] [place] was scanned into English [employer] and attached to record. ks16 18:04 EKG done. (by ED staff). Reviewed by Saul Miller MD. dem1 18:05 Patient visited by Jenny Poole. dem1 18:20 [facility] [place] Agreement was scanned into English [employer] and attached to record. kf3 18:33 Osmolality, Serum Sent. ml6 18:33 BLOOD CULTURES Sent. ml6 18:33 Venous Blood Gas (large pea green tube on ice) Sent. ml6 18:38 Fauzia Bustillo is Hospitalizing Provider. pc 18:39 -Arterial Blood Gas Sent. ac1 18:56 BASIC METABOLIC PROFILE Sent. js13 19:09 Urinalysis Sent. ml6 19:09 Urine Culture Sent. ml6 19:09 Osmolality,Urine Sent. ml6 19:09 Urine Random,Creatinine Sent. ml6 19:09 Urine Random,Sodium Sent. ml6 19:23 Juana Sanderson RN is Primary Nurse. mlc 19:24 Patient visited by Juana Sanderson RN. mlc 19:50 Inserted saline lock: 22 gauge in left antecubital area The patient tolerated the jo3 procedure well. 20:01 Patient visited by Emma Nielson RN. jo3 20:27 Patient visited by Juana Sanderson RN. mlc 20:28 Missed attempts: 20 gauge X 1 right upper arm. js15 20:29 Inserted saline lock: 20 gauge in left upper arm. js15 20:45 CT ABD & PELVIS W/O CONTRAST Returned. EDMS 21:09 Patient visited by Juana Sanderson RN. mlc Administered Medications: 17:09 Drug: heparin 100units/mL flush (infusaport) 5 ml [heparin flush (porcine) 100 unit/mL js13 in 0.9 % sodium chloride IV kit (5 mL)] Route: IVP; Site: Implantable Access Device; 18:03 Drug: NS 0.9% 1000 ml [sodium chloride 0.9 % intravenous solution] Route: IV; Rate: js13 bolus; Site: Implantable Access Device; 20:48 Follow up: IV Status: Completed infusion mlc 18:16 Drug: Insulin Regular Human 10 units [insulin regular human 100 unit/mL injection js13 solution (0.1 mL)] {Co-Signature: ml6 (Sekou Mcbride RN).} Route: IVP; Site: Implantable Access Device; 18:17 Drug: Calcium Chloride 1 grams [calcium chloride 100 mg/mL (10 %) intravenous syringe js13 (10 mL)] {Co-Signature: ml6 (Sekou Mcbride RN).} Route: IVP; Site: Implantable Access Device; 19:09 Drug: Cefepime 2 grams [cefepime 2 gram solution for injection] Route: IVPB; Rate: 100 ml6 mL/hr; Infused Over: 30 mins; Site: Implantable Access Device; 19:29 Follow up: IV Status: Completed infusion mlc 19:53 Drug: Insulin Regular Human Infusion (0.1units/kg/hr) 8 units/hr [insulin regular human mlc 100 unit/mL injection solution] {Co-Signature: jo3 (Emma Nielson RN).} Route: IV; Rate: calculated rate; Site: left antecubital; 20:39 Drug: morphine 4 mg [morphine 4 mg/mL intravenous cartridge (1 mL)] Route: IVP; Site: js15 left upper arm; 21:08 Follow up: Response: Pain is decreased mlc 20:53 Drug: NS 0.9% (Sepsis- hypotension or lactate >4mmol/L, 30ml/kg) 2200 ml [sodium mlc chloride 0.9 % intravenous solution] Route: IV; Rate: bolus; Site: Implantable Access Device; Point of Care Testing: Blood Glucose: 19:24 Blood Glucose: High; mlc 20:51 Blood Glucose: High; mlc 21:31 Blood Glucose: High; mlc Ranges: Intake: 20:49 IV: 1000.00ml (NS); Total: 1000.00ml. mlc RT: 18:39 ABG's drawn from right radial artery allens test done and positive pressure held for 5 ac1 minutes no bleeding noted pressure bandage applied specimen sent pt. tolerated well. Order Results: Lab Order: CBC with Diff; SPEC'M 11/15/16 17:01 Test: WHITE BLOOD COUNT; Value: 34.1; Range: 4.0-10.0; Abnormal: Above upper panic limits; Units: K/mm3; Status: F Test: RED BLOOD COUNT; Value: 3.19; Range: 4.30-6.10; Abnormal: Below low normal; Units: M/mm3; Status: F Test: HEMOGLOBIN; Value: 9.1; Range: 14.0-18.0; Abnormal: Below low normal; Units: g/dl; Status: F Test: HEMATOCRIT; Value: 31.4; Range: 42.0-52.0; Abnormal: Below low normal; Units: %; Status: F Test: MEAN CORPUSCULAR VOLUME; Value: 98.6; Range: 80.0-96.0; Abnormal: Above high normal; Units: fl; Status: F Test: MEAN CORPUSCULAR HEMOGLOBIN; Value: 28.4; Range: 27.0-33.0; Units: pg; Status: F Test: MEAN CORPUSCULAR HGB CONC; Value: 28.9; Range: 32.0-36.5; Abnormal: Below low normal; Units: g/dl; Status: F Test: RED CELL DISTRIBUTION WIDTH; Value: 17.0; Range: 11.5-14.5; Abnormal: Above high normal; Units: %; Status: F Test: PLATELET COUNT, AUTOMATED; Value: 226; Range: 150-450; Units: k/mm3; Status: F Test: PLATELET ESTIMATE; Range: NORMAL; Status: I Test: NEUTROPHILS; Value: 90; Range: 35-75; Abnormal: Above high normal; Units: %; Status: F Test: BANDS; Value: 4; Range: < 11; Units: %; Status: F Test: LYMPHOCYTES; Value: 1; Range: 16-52; Abnormal: Below low normal; Units: %; Status: F Test: MONOCYTES; Value: 5; Range: 0-8; Units: %; Status: F Test: POLYCHROMASIA; Value: 1+; Status: F Test: HYPOCHROMASIA; Value: 2+; Status: F Test: ANISOCYTOSIS; Value: 1+; Status: F Test: MACROCYTOSIS; Value: 1+; Status: F Lab Order: MED Profile; SPEC'M 11/15/16 17:01 Test: GLUCOSE, FASTING; Value: 883; Range: 70-105; Abnormal: Above upper panic limits; Units: MG/DL; Status: F Test: BLOOD UREA NITROGEN; Value: 46; Range: 7-18; Abnormal: Above high normal; Units: MG/DL; Status: F Test: CREATININE FOR GFR; Value: 2.84; Range: 0.70-1.30; Abnormal: Above high normal; Units: MG/DL; Status: F Test: GLOMERULAR FILTRATION RATE; Value: 24.8; Range: >56; Abnormal: Below low normal; Status: F Test: SODIUM LEVEL; Value: 121; Range: 136-145; Abnormal: Below low normal; Units: MEQ/L; Status: F Test: POTASSIUM SERUM; Value: 6.1; Range: 3.5-5.1; Abnormal: Above upper panic limits; Units: MEQ/L; Status: F Test: CHLORIDE LEVEL; Value: 82; Range: 98-107; Abnormal: Below low normal; Units: MEQ/L; Status: F Test: CARBON DIOXIDE LEVEL; Value: 24; Range: 21-32; Units: MEQ/L; Status: F Test: ANION GAP; Value: 15; Range: 8-16; Units: MEQ/L; Status: F Test: CALCIUM LEVEL; Value: 9.8; Range: 8.5-10.1; Units: MG/DL; Status: F Test Note: ; Units are mL/min/1.73 m2 Chronic Kidney Disease Staging per NKF: Stage I & II GFR >=60 Normal to Mildly Decreased Stage III GFR 30-59 Moderately Decreased Stage IV GFR 15-29 Severely Decreased Stage V GFR <15 Very Little GFR Left ESRD GFR <15 on ROOM SERVICE ATTENDANT Lab Order: PLATELET ESTIMATE; 11/15/16 17:01 Test: PLATELET ESTIMATE; Value: NORMAL; Range: NORMAL; Status: F Lab Order: Lactic Acid (Gabriel tube on ice); 11/15/16 17:01 Test: LACTIC ACID SEPSIS PROTOCOL; Value: 5.8; Range: 0.4-2.0; Abnormal: Above upper panic limits; Units: MMOL/L; Status: F Lab Order: Venous Blood Gas (large pea green tube on ice); 11/15/16 18:27 Test: VENOUS PH; Value: 7.385; Range: 7.330-7.430; Units: UNITS; Status: F Test: VENOUS PARTIAL PRESSURE CO2; Value: 38.1; Range: 38.0-50.0; Units: mmHg; Status: F Test: VENOUS PARTIAL PRESSURE O2; Value: 138.7; Range: 30.0-50.0; Abnormal: Above high normal; Units: mmHg; Status: F Test: VENOUS TOTAL CO2; Value: 23.5; Range: 24.0-28.0; Abnormal: Below low normal; Units: MEQ/L; Status: F Test: VENOUS HCO3; Value: 22.3; Range: 23.0-27.0; Abnormal: Below low normal; Units: MEQ/L; Status: F Test: VENOUS BASE EXCESS; Value: -2.4; Range: -2.0-2.0; Abnormal: Below low normal; Status: F Test: VENOUS STANDARD HCO3; Value: 22.5; Units: MEQ/L; Status: F Test: VENOUS O2 SATURATION; Value: 99.2; Range: 60.0-80.0; Abnormal: Above high normal; Units: %; Status: F Lab Order: Osmolality, Serum; 11/15/16 18:27 Test: OSMOLALITY SERUM; Value: 317; Range: 275-295; Abnormal: Above high normal; Units: MOSM/KG; Status: F Lab Order: Osmolality,Urine; 11/15/16 19:10 Test: OSMOLALITY URINE; Value: 330; Range: 500-800; Abnormal: Below low normal; Units: MOSM/KG; Status: F Lab Order: Urine Random,Creatinine; 11/15/16 19:10 Test: CREATININE,RANDOM URINE; Value: 75.1; Units: MG/DL; Status: F Lab Order: Urine Random,Sodium; 11/15/16 19:10 Test: SODIUM,RANDOM URINE; Value: 23; Units: MEQ/L; Status: F Lab Order: -Arterial Blood Gas; [facility] 11/15/16 18:38 Test: ABG pH (ARTERIAL); Value: 7.359; Range: 7.350-7.450; Units: UNITS; Status: F Test: ABG PARTIAL PRESSURE CO2; Value: 42.1; Range: 35.0-45.0; Units: mmHg; Status: F Test: ABG PARTIAL PRESSURE O2; Value: 104.5; Range: 75.0-100.0; Abnormal: Above high normal; Units: mmHg; Status: F Test: ABG TOTAL CO2; Value: 24.5; Range: 22.0-29.0; Units: MEQ/L; Status: F Test: ABG HCO3; Value: 23.2; Range: 22.0-26.0; Units: MEQ/L; Status: F Test: ABG BASE EXCESS; Value: -2.1; Range: -2.0-2.0; Abnormal: Below low normal; Status: F Test: ABG STANDARD HCO3; Value: 22.7; Range: 22.0-26.0; Units: MEQ/L; Status: F Test: ABG O2 SATURATION; Value: 98.3; Range: 95.0-99.0; Units: %; Status: F Test: ABG DEVICE; Value: NASAL FARHAT; Status: F Lab Order: Amylase; 11/15/16 18:41 Test: AMYLASE; Value: 23; Range: 25-115; Abnormal: Below low normal; Units: U/L; Status: F Lab Order: C Reactive Protein; 11/15/16 18:41 Test: C REACTIVE PROTEIN QUANTITATIV; Value: 26.50; Range: 0.00-0.30; Abnormal: Above high normal; Units: MG/DL; Status: F Lab Order: Liver Profile; [facility] 11/15/16 18:41 Test: AST/SGOT; Value: 348; Range: 15-37; Abnormal: Above high normal; Units: U/L; Status: F Test: ALT/SGPT; Value: 90; Range: 12-78; Abnormal: Above high normal; Units: U/L; Status: F Test: ALKALINE PHOSPHATASE; Value: 690; Range: 45-117; Abnormal: Above high normal; Units: U/L; Status: F Test: BILIRUBIN,TOTAL; Value: 0.3; Range: 0.2-1.0; Units: MG/DL; Status: F Test: BILIRUBIN,DIRECT; Value: 0.2; Range: 0.0-0.2; Units: MG/DL; Status: F Test: TOTAL PROTEIN; Value: 6.4; Range: 6.4-8.2; Units: GM/DL; Status: F Test: ALBUMIN; Value: 1.9; Range: 3.2-5.2; Abnormal: Below low normal; Units: GM/DL; Status: F Test: ALBUMIN/GLOBULIN RATIO; Value: 0.42; Range: 1.00-1.93; Abnormal: Below low normal; Status: F Lab Order: PT/INR; 11/15/16 17:01 Test: PROTHROMBIN TIME; Value: 15.5; Range: 12.3-14.5; Abnormal: Above high normal; Units: SECONDS; Status: F Test: INR; Value: 1.22; Status: F Test Note: ; THERAPUTIC HUMAN INR VALUES INDICATIONS NORMAL RANGES PROPHYLAXIS/TREATMENT OF: VENOUS THROMBOSIS 2.0-3.0 PULMONARY EMBOLISM 2.0-3.0 PREVENTION OF SYSTEMIC EMBOLISM FROM: TISSUE HEART VALVES 2.0-3.0 ACUTE MYOCARDIAL INFARCTION 2.0-3.0 VALVULAR HEART DISEASE 2.0-3.0 ATRIAL FIBRILLATION 2.0-3.0 MECHANICAL VALVES(HIGH RISK) 2.5-3.5 RECURRENT MYOCARDIAL INFARCTION 2.5-3.5 Lab Order: PTT; 11/15/16 17:01 Test: PARTIAL THROMBOPLASTIN TIME; Value: 31.5; Range: 26.6-37.1; Units: SECONDS; Status: F Lab Order: Type & Screen; 11/15/16 18:41 Test: BLOOD TYPE; Value: O POS; Status: F Test: AB SCREEN (INDIRECT DILEEP)VIS; Value: NEGATIVE; Status: F Lab Order: Urinalysis; SPEC'M 11/15/16 19:10 Test: APPEARANCE, URINE; Value: CLOUDY; Range: CLEAR; Abnormal: Above high normal; Status: F Test: COLOR, URINE; Value: YELLOW; Range: YELLOW; Status: F Test: PH,URINE; Value: 7.0; Range: 5.0-9.0; Units: UNITS; Status: F Test: SPECIFIC GRAVITY URINE AUTO; Value: 1.016; Range: 1.002-1.035; Status: F Test: PROTEIN, URINE AUTO; Value: 1+; Range: NEGATIVE; Abnormal: Above high normal; Units: mg/dL; Status: F Test: GLUCOSE, URINE (UA) AUTO; Value: 3+; Range: NEGATIVE; Abnormal: Above high normal; Units: mg/dL; Status: F Test: KETONE, URINE AUTO; Value: NEGATIVE; Range: NEGATIVE; Units: mg/dL; Status: F Test: UROBILINOGEN, URINE AUTO; Value: 0.2; Range: 0.0-2.0; Units: mg/dL; Status: F Test: BILIRUBIN, URINE AUTO; Value: NEGATIVE; Range: NEGATIVE; Status: F Test: NITRITE, URINE AUTO; Value: NEGATIVE; Range: NEGATIVE; Status: F Test: LEUKOCYTE ESTERASE, URINE AUTO; Value: 1+; Range: NEGATIVE; Abnormal: Above high normal; Status: F Test: BLOOD, URINE BLOOD; Value: 3+; Range: NEGATIVE; Abnormal: Above high normal; Status: F Test: WBC, URINE AUTO; Value: 30; Range: 0-3; Abnormal: Above high normal; Units: /HPF; Status: F Test: RBC, URINE AUTO; Value: 54; Range: 0-3; Abnormal: Above high normal; Units: /HPF; Status: F Test: BACTERIA, URINE AUTO; Value: 2+; Range: NEGATIVE; Abnormal: Above high normal; Status: F Test: SQUAMOUS EPITHELIAL CELL UR AU; Value: 0; Range: 0-6; Units: /HPF; Status: F Test: MUCUS, URINE; Value: SMALL; Range: NEGATIVE; Status: F Test: HYALINE CAST, URINE AUTO; Value: 0; Range: 0-1; Units: /LPF; Status: F Lab Order: FT4&TSH PANEL; SPEC'M 11/15/16 18:41 Test: THYROID STIMULATING HORMONE; Value: 8.470; Range: 0.358-3.740; Abnormal: Above high normal; Units: uIU/ML; Status: F Test: FREE T4; Value: 0.80; Range: 0.76-1.46; Units: NG/DL; Status: F Lab Order: BASIC METABOLIC PROFILE; TERI'Steven 11/15/16 18:41 Test: GLUCOSE, FASTING; Value: 769; Range: 70-105; Abnormal: Above upper panic limits; Units: MG/DL; Status: F Test: BLOOD UREA NITROGEN; Value: 47; Range: 7-18; Abnormal: Above high normal; Units: MG/DL; Status: F Test: CREATININE FOR GFR; Value: 2.76; Range: 0.70-1.30; Abnormal: Above high normal; Units: MG/DL; Status: F Test: GLOMERULAR FILTRATION RATE; Value: 25.6; Range: >56; Abnormal: Below low normal; Status: F Test: SODIUM LEVEL; Value: 123; Range: 136-145; Abnormal: Below low normal; Units: MEQ/L; Status: F Test: POTASSIUM SERUM; Value: 5.5; Range: 3.5-5.1; Abnormal: Above high normal; Units: MEQ/L; Status: F Test: CHLORIDE LEVEL; Value: 88; Range: 98-107; Abnormal: Below low normal; Units: MEQ/L; Status: F Test: CARBON DIOXIDE LEVEL; Value: 22; Range: 21-32; Units: MEQ/L; Status: F Test: ANION GAP; Value: 13; Range: 8-16; Units: MEQ/L; Status: F Test: CALCIUM LEVEL; Value: 10.6; Range: 8.5-10.1; Abnormal: Above high normal; Units: MG/DL; Status: F Test Note: ; Units are mL/min/1.73 m2 Chronic Kidney Disease Staging per NKF: Stage I & II GFR >=60 Normal to Mildly Decreased Stage III GFR 30-59 Moderately Decreased Stage IV GFR 15-29 Severely Decreased Stage V GFR <15 Very Little GFR Left ESRD GFR <15 on ROOM SERVICE ATTENDANT Radiology Order: Chest, 2 View (pa\E\lat) Test: Chest, 2 View (pa\E\lat) REASON FOR EXAMINATION: Shortness of Breath; Clinical: Shortness of breath.; ; Technique: PA and lateral.; ; Comparison: 03/24/2016.; ; Findings:; [id number] with tip in the SVC remains stable.; Tracheostomy overlies the airway.; Mediastinum and cardiac silhouette are normal. The lung oliveira are clear and; without acute consolidation, effusion, or pneumothorax. Skeletal structures are; intact.; ; Impression:; Stable chest x-ray. No acute cardiopulmonary process appreciated.; ; ; Signed by; Jose De Jesus Brody MD 11/15/2016 04:50 P; Radiology Order: CT ABD & PELVIS W/O CONTRAST Test: CT ABD & PELVIS W/O CONTRAST REASON FOR EXAMINATION: vomiting; Clinical: Abdominal pain history of malignancy.; ; Comparison: 10/03/2016.; ; Findings:; The liver demonstrates diffuse, marked metastatic disease which is considerably; increased from prior examination. Moderate ascites along with retroperitoneal,; mesenteric, and upper abdominal adenopathy is also increased and again consistent; with metastatic disease. Fluid and soft tissue in a supraumbilical hernia is; identified which may represent small nodular soft tissue metastatic deposits; which is also increased from prior examination.; ; The patient is noted to be status post bladder resection for neoplasm with; neobladder creation and anastomoses to a small bowel which remain stable in; appearance.; ; Spleen, pancreas, gallbladder, bilateral adrenal glands and kidneys are; relatively normal for noncontrast evaluation. Bilateral perinephric stranding is; nonspecific and there is no evidence for hydroureteronephrosis. The enteric; system is without obstruction or acute inflammatory process and scattered colonic; diverticula noted without acute diverticulitis. No free air. Atherosclerotic; changes of the vasculature noted without aortic aneurysm. Skeletal structures; demonstrate diffuse degenerative changes as well as mixed sclerotic and lytic; lesions predominant noted in the visualized thoracic and lumbar vertebral bodies; as well as within the left bjorn sacrum which are increased from prior examination; and consistent with osseous metastatic disease. The lung bases demonstrate; chronic changes with bibasilar atelectasis and evidence for old healed left rib; fracture.; ; Impression:; 1. Increasing hepatic metastatic disease, ascites, retroperitoneal, mesenteric; and upper abdominal adenopathy and osseous lesions all consistent with increasing; metastatic disease.; 2. Postsurgical changes related to bladder resection and recreation remains; stable and relatively normal. The kidneys are without hydroureteronephrosis.; 3. The small and large bowel are without obstruction or obvious acute; inflammatory process.; ; ; Signed by; Jose De Jesus Brody MD 11/15/2016 08:24 P; Outcome: 18:38 Decision to Hospitalize by Provider. 20:27 CT Study completed. [facility] 20:52 Discharge Assessment: patient administered narcotics - yes. Patient was admitted to the [facility] hospital or transferred to another facility. 21:28 Admission hand-off: Report called to MILES De La Rosa. [facility] 21:31 The following High Risk Discharge criteria are identified: None. Admitted to ICU [facility] accompanied by nurse, accompanied by tech, family with patient, via stretcher, with oxygen, on monitor, with chart. Condition: stable. Property :Personal belongings accompany Pt. 21:43 Patient left the ED. [facility] Signatures: Dispatcher [employer] EDMS Saul Miller MD MD pc Murray, Denise, Upkeep Worker Unit deg Angelita Calabrese, RN RN Soraida Merida,RT RT ac1 Emma Nielson,RN RN jo3 Juan Goldberg, Reg Reg kf3 Sekou Mcbride RN RN ml6 Jenny Poole demEmma DaigleRN RN js13 Juana SandersonRN RN [facility] Cecilia ShepherdRN RN js15 Paulina Bañuelos, Reg Reg ks16 Sekou Mcbride RN ml6 Emma Nielson RN jo3 Corrections: (The following items were deleted from the chart) 16:27 16:24 Respiratory: Onset: The symptoms/episode began/occurred today, Airway via oral js13 airway Respiratory effort is even, unlabored, Respiratory pattern is regular, Breath sounds with rhonchi Breath sounds are diminished js13 18:42 18:33 FT4&TSH PANEL+LAB sent. ml6 EDCT MTDD
--- NOTE | 2016-11-15 21:44 | EDDOCDS ---
Physician Documentation [facility] Name: Martínez Abbasi Age: 55 yrs Sex: Male : 1960 Arrival Date: 11/15/2016 Time: 16:05 Bed 12 Private MD: Disposition: 11/15 18:36 Critical Care:. pc Disposition: 11/15/16 18:38 Hospitalization ordered by Fauzia Bustillo for Inpatient Admission. Preliminary diagnosis are Sepsis, unspecified organism, Hyperglycemia, unspecified, Acute kidney failure, Hypo-osmolality and hyponatremia, Malignant neoplasm of larynx. - Bed requested for M ICU. - Status is Inpatient Admission. mlc - Condition is Stable. - Problem is new. - Symptoms have improved. HPI: 16:36 This 55 yrs old Male presents to ER via Ambulance with complaints of pc Breathing Difficulty. 16:36 The history is obtained from the patient, EMS providers. He has a tracheostomy due to pc laryngeal Ca and he dislikes the inner cannula. For the second day in a row, he took out the cannula and became SOB with thick secretions after about 5 hours. He was unable to clear the Trach so EMS was called. He was suctioned and he expectorated a large thick mucous plug. He present no longer SOB. He is tachycardic but no longer is dyspneic. He denies any recent fevers. He was supposed to have gone to his ENT in [place] today, for Trach care and replacement but did not go because he felt too tired this morning. His appointment was rescheduled for tomorrow. Historical: - Allergies: no known allergies; - Home Meds: 1. Compazine 5 mg Oral tab Unknown 2. hydrocodone-acetaminophen 7.5-325 mg Oral tab up to 12 daily 3. morphine 60 mg Oral CERP 1 cap 2 times per day 4. ondansetron HCl 4 mg Oral tab every 4 hours as needed 5. prochlorperazine maleate 10 mg Oral tab every 6 hours as needed - PMHx: Bladder Cancer; laryngeal cancer; - PSHx: Tracheostomy; Bladder scraping X2; Bladder removed and reconstructed from Large intestine; - The history from nurses notes was reviewed: and I agree with what is documented. - Social history: Smoking status: Patient states former smoker of tobacco. Patient is speech impaired. - Family history: Not pertinent. - : The pt / caregiver states he / she is not on anticoagulants. Home medication list is obtained from the patient. - Hospitalizations: : No recent hospitalization is reported. - Exposure Risk Screening:: None identified. - Immunization history:: All immunizations up-to-date. - Social history:: the patient is a non-smoker, the patient does not drink alcohol. ROS: 16:36 All systems are negative except as listed. pc Exam: 16:36 General Appearance: no acute distress, alert. pc 16:36 EENT: normal eye inspection, ears, nose and throat normal, pharynx normal, mucous membranes moist 16:36 Neck: Tracheostomy site clean and dry. 16:36 Respiratory: no respiratory distress, Breath sounds: wheezing, scattered. 16:36 CVS: regular rhythm, normal S1 and S2, no murmurs, strong peripheral pulses, normal capillary refill, the patient is tachycardic, at 134 bpm. 16:36 Abdomen: soft, non-tender, no organomegaly, normal bowel sounds. 16:36 Back: normal inspection. 16:36 Skin: skin color is normal, warm, dry. 16:36 Extremities: The extremities have a grossly normal appearance, are non-tender, without acute ROM abnormalities. 16:36 Neuro: oriented x 3, cranial nerves normal as tested, no motor deficits, no sensory deficits. Vital Signs: 16:19 BP 121 / 73; Pulse 139; Resp 20; Temp 99.1(TE); Pulse Ox 94% on 2 lpm NC; dem1 16:24 Weight 72.57 kg / 159.99 lbs; Height 5 ft. 5 in. (165.10 cm); dem1 17:06 BP 105 / 64 (auto/); js13 17:06 Pulse 128 MON; Resp 18; Pulse Ox 93% on 35% Venturi mask; js13 17:21 BP 105 / 68 (auto/); js13 17:21 Pulse 124 MON; Resp 18; Pulse Ox 94% on 35% Venturi mask; js13 17:35 Pulse 122 MON; Pulse Ox 96% ; mlc 17:36 BP 104 / 71 (auto/); mlc 17:51 Pulse 118 MON; Pulse Ox 97% ; mlc 17:51 BP 107 / 62 (auto/); mlc 18:05 Pulse 114 MON; Pulse Ox 98% ; mlc 18:06 BP 94 / 60 (auto/); mlc 18:20 Pulse 118 MON; Pulse Ox 98% ; mlc 18:21 BP 103 / 57 (auto/); mlc 18:35 Pulse 114 MON; Pulse Ox 98% ; mlc 18:36 BP 103 / 63 (auto/); mlc 18:52 Pulse 122 MON; Pulse Ox 97% ; mlc 18:53 BP 111 / 64 (auto/); mlc 19:05 Pulse 116 MON; Pulse Ox 95% ; mlc 19:06 BP 111 / 68 (auto/); mlc 19:21 BP 115 / 74 (auto/); mlc 19:21 Pulse 108 MON; Pulse Ox 98% ; mlc 19:35 Pulse 104 MON; Pulse Ox 98% ; mlc 19:36 BP 106 / 64 (auto/); mlc 19:50 Pulse 102 MON; Pulse Ox 99% ; mlc 19:51 BP 121 / 81 (auto/); mlc 20:25 Pulse 100 MON; Pulse Ox 99% ; mlc 20:26 Pulse 100 MON; Pulse Ox 99% ; mlc 20:27 BP 104 / 61 (auto/); mlc 20:35 Pulse 98 MON; Pulse Ox 99% ; mlc 20:36 BP 107 / 65 (auto/); mlc 20:49 Pulse 96 MON; Pulse Ox 100% ; mlc 20:50 Pulse 96 MON; Pulse Ox 100% ; mlc 20:51 BP 110 / 61 (auto/); mlc 21:05 Pulse 100 MON; Resp 20; Pulse Ox 99% ; Pain 6/10; mlc 21:06 BP 113 / 69 (auto/); mlc 21:31 Pulse 94 MON; Resp 18; Temp 96.5; Pulse Ox 99% ; Pain 6/10; mlc 21:32 BP 114 / 55 (auto/); mlc 16:24 Body Mass Index 26.62 (72.57 kg, 165.10 cm) dem1 MDM: 16:35 heparin 100units/mL flush (infusaport) 5 ml IVP once; flush first with 10mL of NS pc followed by heparin ordered. 16:35 Access Infusaport ordered. pc 16:35 Financial registration complete. kf3 16:36 CBC with Diff Ordered. EDMS 16:36 MED Profile Ordered. EDMS 16:36 Differential Diagnosis: Tracheostomy plugging; tachycardia. Plan: labs, imaging. pc 16:37 Chest, 2 View (pa\E\lat) Ordered. EDMS 16:50 Test interpretation: X-RAY - interpreted by Radiologist and personally reviewed, 2 view pc chest, no acute disease. 17:43 DIFFERENTIAL NO CHARGE Ordered. EDMS 17:43 PLATELET ESTIMATE Ordered. EDMS 17:54 Undo -Financial registration. ks16 17:55 [facility] Payment Agreement was scanned into creads and attached to record. ks16 17:55 CBC with Diff Reviewed. pc 17:55 MED Profile Reviewed. pc 17:55 PLATELET ESTIMATE Reviewed. pc 17:55 Chest, 2 View (pa\E\lat) Reviewed. pc 17:56 Financial registration complete. kf3 17:57 -Blood Culture (Adults Only), peripheral from different site, or from device/port/PICC pc etc. if present ordered. 17:57 NS 0.9% 1000 ml IV at bolus once ordered. pc 17:57 Proteomics Scientist/Pulse Ox/q 30 min VS ordered. pc 17:58 -Blood Culture Ordered. EDMS 17:58 -Blood Culture (Adults Only), peripheral from different site, or from device/port/PICC deg etc. if present complete. 17:58 Lactic Acid (Gabriel tube on ice) Ordered. EDMS 17:58 Venous Blood Gas (large pea green tube on ice) Ordered. EDMS 17:58 ECG WITH READING ER PHYS+CARDIAG ordered. EDMS 17:59 BLOOD CULTURES Ordered. EDMS 18:03 Osmolality, Serum Ordered. EDMS 18:03 Osmolality,Urine Ordered. EDMS 18:03 Urine Random,Creatinine Ordered. EDMS 18:03 Urine Random,Sodium Ordered. EDMS 18:05 Insulin Regular Human 10 units IVP once ordered. pc 18:05 Calcium Chloride 1 grams IVP once ordered. pc 18:06 BED REQUEST+ADM ordered. EDMS 18:20 [facility] Payment Agreement was scanned into creads and attached to record. kf3 18:28 NS 0.9% (Sepsis- hypotension or lactate >4mmol/L, 30ml/kg) 2200 ml IV at bolus once; pc Give in 500mL aliquots, assess for rales after each, inform provider ordered. 18:28 Call Respiratory ordered. pc 18:28 Proteomics Scientist/Pulse Ox/q 15 min VS ordered. pc 18:28 Intake and Output Hourly ordered. pc 18:28 Cefepime 2 grams IVPB at 100 mL/hr once over 30 mins; dilute in 50mL of NS or D5W pc ordered. 18:28 -Arterial Blood Gas Ordered. EDMS 18:29 Amylase Ordered. EDMS 18:29 C Reactive Protein Ordered. EDMS 18:29 Liver Profile Ordered. EDMS 18:29 PT/INR Ordered. EDMS 18:29 PTT Ordered. EDMS 18:29 Urinalysis Ordered. EDMS 18:29 Urine Culture Ordered. EDMS 18:29 Type & Screen Ordered. EDMS 18:31 Call Respiratory complete. ml6 18:36 Data reviewed: old medical records, vital signs, nurses notes, EKG(s), lab test pc results, all radiology studies and available results. Test interpretation: EKG LAB - all labs as ordered have been reviewed, interpreted and considered in the overall management of the clinical presentation;. 18:36 The patient has been re-examined and re-evaluated. The patient's symptoms have markedly pc improved after treatment. Physician consultation: Dr. Fauzia Bustillo regarding admission. Disposition: The historical points, examination findings, and any diagnostic results supporting the provided diagnosis, were discussed with the patient or legal guardian. The need for further work-up and/or treatment in the hospital was explained. 18:44 FT4&TSH PANEL Ordered. EDMS 18:47 BASIC METABOLIC PROFILE Ordered. EDMS 19:30 Insulin Regular Human Infusion (0.1units/kg/hr) 8 units/hr IV at calculated rate Per cs11 protocol ordered. 19:30 Accucheck hourly ordered. cs11 19:48 CBC WITH DIFFERENTIAL Ordered. EDMS 19:48 COMPLETE COMPHRENSIVE METABOLI Ordered. EDMS 19:48 MAGNESIUM LEVEL Ordered. EDMS 19:50 Admission / Observation Status ordered. EDMS 19:50 CT ABD & PELVIS W/O CONTRAST Ordered. EDMS 20:25 Admission / Observation Status ordered. EDMS 20:27 CLEAR LIQUIDS DIET ordered. EDMS 20:40 morphine 4 mg IVP once ordered. js15 EC:36 Rate is 115 beats/min. Rhythm is regular, Sinus tachycardia. QRS [place] is Normal. CA pc interval is normal. QRS interval is normal. QT interval is normal. No Q waves. T waves are Normal. No ST changes noted. Clinical impression: Sinus tachycardia and Incomplete RBBB. No change from previous ECG in Jan, 2016. Point of Care Testing: Blood Glucose: 19:24 Blood Glucose: High; mlc 20:51 Blood Glucose: High; mlc 21:31 Blood Glucose: High; mlc Ranges: Administered Medications: 17:09 Drug: heparin 100units/mL flush (infusaport) 5 ml [heparin flush (porcine) 100 unit/mL js13 in 0.9 % sodium chloride IV kit (5 mL)] Route: IVP; Site: Implantable Access Device; 18:03 Drug: NS 0.9% 1000 ml [sodium chloride 0.9 % intravenous solution] Route: IV; Rate: js13 bolus; Site: Implantable Access Device; 20:48 Follow up: IV Status: Completed infusion mlc 18:16 Drug: Insulin Regular Human 10 units [insulin regular human 100 unit/mL injection js13 solution (0.1 mL)] {Co-Signature: ml6 (Sekou Mcbride RN).} Route: IVP; Site: Implantable Access Device; 18:17 Drug: Calcium Chloride 1 grams [calcium chloride 100 mg/mL (10 %) intravenous syringe js13 (10 mL)] {Co-Signature: ml6 (Sekou Mcbride RN).} Route: IVP; Site: Implantable Access Device; 19:09 Drug: Cefepime 2 grams [cefepime 2 gram solution for injection] Route: IVPB; Rate: 100 ml6 mL/hr; Infused Over: 30 mins; Site: Implantable Access Device; 19:29 Follow up: IV Status: Completed infusion mlc 19:53 Drug: Insulin Regular Human Infusion (0.1units/kg/hr) 8 units/hr [insulin regular human mlc 100 unit/mL injection solution] {Co-Signature: jo3 (Emma Nielson RN).} Route: IV; Rate: calculated rate; Site: left antecubital; 20:39 Drug: morphine 4 mg [morphine 4 mg/mL intravenous cartridge (1 mL)] Route: IVP; Site: js15 left upper arm; 21:08 Follow up: Response: Pain is decreased mlc 20:53 Drug: NS 0.9% (Sepsis- hypotension or lactate >4mmol/L, 30ml/kg) 2200 ml [sodium mlc chloride 0.9 % intravenous solution] Route: IV; Rate: bolus; Site: Implantable Access Device; Critical Care Time: 18:36 Critical care time: Bedside Care: 25 minutes, Consultation: 15 minutes. Total time: 40 pc minutes Signatures: Dispatcher [employer] EDMS Saul Miller MD MD pc Murray, Denise, Wellness Coach Unit deg Emily, Ed, RIGHT OF WAY CUTTER RIGHT OF WAY CUTTER kb5 Juan Goldberg, Reg Reg kf3 Sekou Mcbride, RN RN ml6 Emma Hicks,RN RN js13 Reese Root, DO DO cs11 Juana Sanderson,RN RN mlc Cecilia Shepherd,RN RN js15 Paulina Bañuelos, Reg Reg ks16 Sekou Mcbride RN ml6 Emma Nielson RN jo3 The chart was reviewed and I authenticate all verbal orders and agree with the evaluation and treatment provided.Corrections: (The following items were deleted from the chart) 18:42 18:03 FT4&TSH PANEL+LAB ordered. EDMS EDMS 18:47 18:30 BASIC METABOLIC PROFILE ordered. EDMS EDMS 19:53 19:48 LACTIC ACID LEVEL, LACTATE ordered. EDMS EDMS Attachments: 18:20 [facility] Payment Agreement kf3 MTDD
[2016-11-15 21:45] VITALS: BP 103/59
[2016-11-15] MEDS: VANCOMYCIN HCL 1,000 MG, VIAL MATE ADAPTER 1 EACH in D5W 250 ML IV SCH (22:54)
[2016-11-15] MEDS: MORPHINE 30 MG SA TAB PO SCH (22:58)
[2016-11-15] MEDS: CHLORHEXIDINE GLUCONATE 0.12 % 15ML UDC (PERIDEX ORAL RINSE) MT SCH (22:58)
[2016-11-15 23:00] VITALS: BP 114/84
[2016-11-15] MEDS: NS 1,000 ML IV SCH ×2 (23:00→23:49)
[2016-11-16] VITALS (12 sets, daily range): BP systolic 99–125; BP diastolic 55–83
[2016-11-16] MEDS: INSULIN IV RATE CHANGE DOCUMENTATION ML/HR XX SCH ×5 (00:33→07:22)
[2016-11-16 00:48] LABS: CALCIUM LEVEL 9.1 MG/DL (8.5-10.1); CREATININE FOR GFR 2.32 MG/DL (0.70-1.30); GLOMERULAR FILTRATION RATE 31.3 (>56)
[2016-11-16 00:50] LABS: POTASSIUM SERUM 5.5 MEQ/L (3.5-5.1)
[2016-11-16] MEDS: MORPHINE 4 MG/ML 1ML SYRINGE IV PRN ×4 (01:07→23:58)
[2016-11-16 02:37] LABS: CALCIUM LEVEL 9.5 MG/DL (8.5-10.1); CREATININE FOR GFR 2.49 MG/DL (0.70-1.30); GLOMERULAR FILTRATION RATE 28.8 (>56); POTASSIUM SERUM 5.5 MEQ/L (3.5-5.1)
[2016-11-16 04:48] LABS: CALCIUM LEVEL 9.4 MG/DL (8.5-10.1); CREATININE FOR GFR 2.28 MG/DL (0.70-1.30); GLOMERULAR FILTRATION RATE 31.9 (>56)
[2016-11-16 04:52] LABS: POTASSIUM SERUM 5.5 MEQ/L (3.5-5.1)
[2016-11-16 06:55] LABS: DIFF SLIDE NUMBER 80; MEAN CORPUSCULAR HEMOGLOBIN 28.4 pg (27.0-33.0); MEAN CORPUSCULAR HGB CONC 30.5 g/dl (32.0-36.5); MEAN CORPUSCULAR VOLUME 93.1 fl (80.0-96.0); PLATELET COUNT, AUTOMATED 221 k/mm3 (150-450); RED CELL DISTRIBUTION WIDTH 17.1 % (11.5-14.5)
[2016-11-16 06:57] LABS: WHITE BLOOD COUNT 30.7 K/mm3 (4.0-10.0)
[2016-11-16 07:11] LABS: ALBUMIN 1.8 GM/DL (3.2-5.2); ALBUMIN/GLOBULIN RATIO 0.42 (1.00-1.93); BILIRUBIN,TOTAL 0.4 MG/DL (0.2-1.0); CALCIUM LEVEL 9.3 MG/DL (8.5-10.1); CREATININE FOR GFR 2.41 MG/DL (0.70-1.30); GLOMERULAR FILTRATION RATE 29.9 (>56); MAGNESIUM LEVEL 1.6 MG/DL (1.8-2.4); TOTAL PROTEIN 6.1 GM/DL (6.4-8.2)
[2016-11-16 07:13] LABS: POTASSIUM SERUM 5.6 MEQ/L (3.5-5.1)
[2016-11-16] MEDS: IPRATROPIUM 0.5MG/ALBUTEROL 2.5MG INH SOL UD 3ML (DUONEB)(J7620) NEB SCH ×4 (07:32→19:31)
[2016-11-16 07:39] LABS: BANDS 3 % (< 11)
[2016-11-16 07:40] LABS: ANISOCYTOSIS 1+; MICROCYTOSIS 1+
[2016-11-16] MEDS: CHLORHEXIDINE GLUCONATE 0.12 % 15ML UDC (PERIDEX ORAL RINSE) MT SCH ×2 (08:06→20:30)
[2016-11-16] MEDS: PANTOPRAZOLE 40MG INJ (PROTONIX) (C9113) IV SCH (08:07)
[2016-11-16] MEDS: MORPHINE 30 MG SA TAB PO SCH ×2 (08:07→21:59)
[2016-11-16] MEDS: ENOXAPARIN 30 MG/0.3 ML SYR (J1650) SC SCH (08:07)
[2016-11-16] MEDS ORDERED: DEXTROSE 50% 50 ML SYRINGE IV PRN (10:00)
[2016-11-16] MEDS ORDERED: GLUCAGON FOR INJ 1 MG VIAL (J1610) SC PRN (10:00)
[2016-11-16] MEDS ORDERED: GLUCOSE 4 GM CHEW TABLET PO PRN (10:00)
[2016-11-16] MEDS ORDERED: HumaLOG INSULIN (NovoLOG) PER UNIT SC SCH (10:00)
--- NOTE | 2016-11-16 10:07 | IPNPDOC ---
Subjective Date Seen The patient was seen on 11/16/16. Subjective Chief Complaint/HPI Pt this morning is without vomiting, he cont to have abd pain, some labored breathing, although better than it was yesterday. We discussed his end of life wishes and he completed a MOLST form, indicating DNR. He plans to complete HCP paperwork today after talking with his family. General: Reports: Fatigue Constitutional: Denies: Chills, Fever ENT: Reports: Head Aches Pulmonary: Reports: Dyspnea, Denies: Cough Cardiovascular: Denies: Chest Pain, Palpitations Gastrointestinal: Reports: Abdominal Pain, Nausea, Denies: Diarrhea, Vomiting Neurological: Reports: Weakness Objective Physical Examination General Exam: Positive: Alert, No Acute Distress ENT Exam: Positive: Mucous membr. moist/pink Chest Exam: Positive: Diminished, Other (bibasilar crackles) Heart Exam: Positive: Normal S1, Regular Rhythm, Tachycardic Abdomen Exam: Positive: Normal bowel sounds, Other (hepatomegaly, abd slightly firm, distended, mildly diffusely tender to palpation) Extremity Exam: Negative: Edema Psych Exam: Positive: Mental status NL Assessment /Plan Problems (1) Sepsis Status: Acute Response to Treatment: Stable Discussed With: Nurse, Patient Problem Specific Plan: Monitor Clinically, Repeat Labs Problem Text: Pt started on Cefepime/Vanco on admission D1, WBC down slightly [place] [address] to [address], tmas 100.4, this morning. Recheck lactic acid. Urine and blood cultures pending. (2) ARF (acute renal failure) Status: Acute Discussed With: Nurse, Patient Problem Specific Plan: Monitor Clinically, Repeat Labs Problem Text: Scr 2.41, monitor closely, on IVF (3) Malignant tumor of larynx Status: Chronic Response to Treatment: Progressing Problem Specific Plan: Monitor Clinically Problem Text: last dose of Chemo 2/10 per pt. (4) Bladder cancer Status: Chronic (5) Hyperglycemia Status: Acute Response to Treatment: Stable Problem Specific Plan: Monitor Clinically Problem Text: on SSI with FSBS, monitor. (6) Metastases to the liver Status: Chronic Response to Treatment: Progressing Problem Text: AST 2873, ALT 105, known liver mets, INR 1.22 Plan/VTE VTE Prophylaxis Ordered?: Yes Plan Advance Directives: DNR Attending note: I saw and evaluated the patient, and agree with the plan of care as discussed and documented by Sandra Parson, with the following exceptions: Patient admitted with severe sepsis, hyperosmolar nonketotic state, acute kidney injury, metastatic cancer, transaminitis, lactic acidosis, and hypoalbuminemia. Severe sepsis met by criteria due to severely elevated lactate , indicating end organ dysfunction. Patient also had hyperosmolar nonketotic state, with blood sugars in the 800s. Patient does not have an anion gap, no ketones in the urine. No previous diagnosis of diabetes. Patient was placed on clear fluids, which included a tray with Jell-O containing high fructose corn syrup, soda's containing high fructose corn syrup, and juice containing high for just corn syrup. Tested A1c, which is 8.9. Patient will need to be on carb controlled diet to prevent resurgence of his blood sugars. Added Kayexalate to help with hyperkalemia, since patient's lactic acidosis has resolved, and his gap is closed. Added FENa to evaluate for intrinsic kidney damage from his recent chemotherapy. Patient's creatinine is normally around 1. Patient given a fluid bolus of normal saline, and light of possible prerenal AK I secondary to sepsis, and hyponatremia. Sandra Parson began discussion of goals of care with the patient, and I discussed the option of home hospice for this patient, in light of his worsening metastatic disease seen on CT scan. Patient would like to pursue home hospice, and his family is able to provide some help in the home. He is are set up with [facility]. Hospice consult was ordered. Rafa Bustillo MD VS, I&O, 24H[facility] Vital Signs/I&O Vital Signs Date Time Temp Pulse Resp B/P Pulse Ox O2 Delivery O2 Flow Rate FiO2 11/16/16 08:07 29 94 11/16/16 08:00 100.4 118 125/67 Trach Collar 35 11/16/16 08:00 8.0 I&O- Last 24 Hours up to 6 AM 11/16/16 06:00 Intake Total 1286 ml Output Total 300 ml Balance 986 ml Laboratory Data 24H LABS Laboratory Tests 2 11/15/16 17:01: Activated Partial Thromboplast Time 31.5, Anion Gap 15, Anisocytosis 1+, Band Neutrophils 4, Blood Urea Nitrogen 46H, Creatinine 2.84H, Sodium Level 121L, Potassium Level 6.1*H, Chloride Level 82L, Carbon Dioxide Level 24, Calcium Level 9.8, Glomerular Filtration Rate 24.8L, Hypochromasia 2+, Lactic Acid ( Sepsis) 5.8*H, Lymphocytes (Manual) 1L, Macrocytosis 1+, Monocytes (Manual) 5, Neutrophils 90H, Platelet Estimate NORMAL, Polychromasia 1+, Prothromb Time International Ratio 1.22, Prothrombin Time 15.5H 11/15/16 18:27: Blood Gas Bicarbonate Standard 22.5, Osmolality 317H, Venous Blood Base Excess - 2.4L, Venous Blood pH 7.385, Venous Blood Partial Pressure CO2 38.1, Venous Blood Partial Pressure O2 138.7H, Venous Blood Total Carbon Dioxide 23.5L, Venous Blood HCO3 22.3L, Venous Blood Oxygen Saturation 99.2H 11/15/16 18:38: Blood Gas Bicarbonate Standard 22.7, Arterial Blood pH 7.359, Arterial Blood Partial Pressure CO2 42.1, Arterial Blood Partial Pressure O2 104.5H, Arterial Blood Total CO2 24.5, Arterial Blood HCO3 23.2, Arterial Blood Base Excess -2.1L , Arterial Blood Oxygen Saturation 98.3, Oxygen Delivery Device NASAL FARHAT 11/15/16 18:41: Anion Gap 13, Calcium Level 10.6H, Glomerular Filtration Rate 25.6L, Aspartate Amino Transf (AST/SGOT) 348H, Alanine Aminotransferase (ALT/SGPT) 90H, Alkaline Phosphatase 690H, Total Bilirubin 0.3, Direct Bilirubin 0.2, Albumin 1.9L, Albumin/Globulin Ratio 0.42L, Amylase Level 23L, C-Reactive Protein, Quantitative 26.50H, Free Thyroxine 0.80, Thyroid Stimulating Hormone (TSH) 8.470H, Total Protein 6.4 11/15/16 19:10: Urine Amorphous Sediment , Urine Appearance CLOUDYH, Urine Color YELLOW, Urine pH 7.0, Urine Specific [place] 1.016, Urine Protein 1+H, Urine Glucose (UA) 3+H , Urine Ketones NEGATIVE, Urine Urobilinogen 0.2, Urine Bilirubin NEGATIVE, Urine Leukocyte Esterase 1+H, Urine Bacteria (Auto) 2+H, Urine Blood 3+H, Urine Calcium Carbonate Cryst(Auto) , Urine Calcium Oxalate Cryst (Auto) , Urine Calcium Phosphate Greta (Auto) , Urine Cellular Casts , Urine Cystine Crystals , Urine Granular Casts (Auto) , Urine Hyaline Casts (Auto) 0, Urine Leucine Crystals , Urine Mucus (Auto) SMALL, Urine Nitrite NEGATIVE, Urine Oval Fat Bodies (Auto) , Urine RBC (Auto) 54H, Urine Random Creatinine 75.1, Urine Random Osmolality 330L, Urine Random Sodium 23, Urine Renal Epithelial Cells , Urine Sperm (Auto) , Urine Squamous Epithelial Cells 0, Urine Transitional Epithelial Cells , Urine Trichomonas (Auto) , Urine Triple Phosphate Cryst (Auto ) , Urine Tyrosine Crystals , Urine Uric Acid Crystals (Auto) , Urine WBC (Auto ) 30H, Urine Waxy Casts (Auto) , Urine Yeast-Like Cells (Auto) 11/15/16 22:13: Lactic Acid Level 4.1*H 11/15/16 23:14: Bedside Glucose (Misc Panel) 523*H 11/16/16 00:13: Bedside Glucose (Misc Panel) 478H 11/16/16 00:15: Anion Gap 12, Blood Urea Nitrogen 45H, Creatinine 2.32H, Sodium Level 138#, Potassium Level 5.5H, Chloride Level 101, Carbon Dioxide Level 25, Calcium Level 9.1, Glomerular Filtration Rate 31.3L 11/16/16 00:59: Bedside Glucose (Misc Panel) 456H 11/16/16 02:05: Bedside Glucose (Misc Panel) 400H 11/16/16 02:09: Anion Gap 10, Blood Urea Nitrogen 47H, Creatinine 2.49H, Sodium Level 132L, Potassium Level 5.5H, Chloride Level 96L, Carbon Dioxide Level 26, Calcium Level 9.5, Glomerular Filtration Rate 28.8L 11/16/16 03:07: Bedside Glucose (Misc Panel) 356H 11/16/16 04:09: Bedside Glucose (Misc Panel) 333H 11/16/16 04:12: Anion Gap 7L, Blood Urea Nitrogen 47H, Creatinine 2.28H, Sodium Level 131L, Potassium Level 5.5H, Chloride Level 97L, Carbon Dioxide Level 27, Calcium Level 9.4, Glomerular Filtration Rate 31.9L 11/16/16 05:14: Bedside Glucose (Misc Panel) 302H 11/16/16 06:27: Bedside Glucose (Misc Panel) 187H 11/16/16 06:29: Blood Urea Nitrogen 49H, Creatinine 2.41H, Sodium Level 133L, Potassium Level 5.6H, Chloride Level 99, Carbon Dioxide Level 22, Calcium Level 9.3, Aspartate Amino Transf (AST/SGOT) 283H, Alanine Aminotransferase (ALT/SGPT) 105H, Alkaline Phosphatase 833H, Total Bilirubin 0.4, Total Protein 6.1L, Albumin 1.8L , Albumin/Globulin Ratio 0.42L, Anion Gap 12, Anisocytosis 1+, Atypical Lymphocytes 1, Band Neutrophils 3, Glomerular Filtration Rate 29.9L, Lymphocytes (Manual) 10L, Magnesium Level 1.6L, Metamyelocytes 1H, Microcytosis 1+, Monocytes (Manual) 2, Neutrophils 83H, Platelet Estimate NORMAL 11/16/16 07:18: Bedside Glucose (Misc Panel) 239H 11/16/16 08:05: Bedside Glucose (Misc Panel) 219H CBC/BMP Laboratory Tests 11/15/16 17:01 Calcium Level 9.8, Red Blood Count 3.19 L, Mean Corpuscular Volume 98.6 H, Mean Corpuscular Hemoglobin 28.4, Mean Corpuscular Hemoglobin Concent 28.9 L, Red Cell Distribution Width 17.0 H 11/15/16 18:41 11/16/16 00:15 Calcium Level 9.1 11/16/16 02:09 Calcium Level 9.5 11/16/16 04:12 Calcium Level 9.4 11/16/16 06:29 Calcium Level 9.3, Aspartate Amino Transf (AST/SGOT) 283 H, Alanine Aminotransferase (ALT/SGPT) 105 H, Alkaline Phosphatase 833 H, Total Bilirubin 0.4, Total Protein 6.1 L, Albumin 1.8 L, Red Blood Count 2.94 L, Mean Corpuscular Volume 93.1 #, Mean Corpuscular Hemoglobin 28.4, Mean Corpuscular Hemoglobin Concent 30.5 L, Red Cell Distribution Width 17.1 H Microbiology Microbiology 11/15/16 Blood Culture, Received Pending 11/15/16 Blood Culture, Received Pending 11/15/16 Urine Culture, Received Pending SANDRA PARSON PA-C Nov 16, 2016 10:06 RAFA BUSTILLO MD Nov 16, 2016 15:55
[2016-11-16] MEDS: NICOTINE 21MG/24HR 1 EA TRANSDERMAL TD SCH (10:21)
[2016-11-16] MEDS: NS 1,000 ML IV SCH (11:09)
[2016-11-16] MEDS: HumaLOG INSULIN (NovoLOG) PER UNIT SC SCH ×4 (11:45→23:58)
[2016-11-16] MEDS ORDERED: SODIUM CHLORIDE 0.9% 1000 ML IV ONE (14:15)
[2016-11-16] MEDS ORDERED: SOD POLYSTYRENE SULFONATE SUSP 15 GM/60 ML UD PO ONE (14:30)
[2016-11-16] MEDS ORDERED: MAGNESIUM CHLORIDE 64 MG TABCR (SLO MAG) PO ONE (14:30)
--- NOTE | 2016-11-16 15:17 | ECGEPIP ---
Stationary ECG Study [facility] - ED Test Date: 2016-11-15 Pat Name: LUCINDA PURCELL Department: Room: - Gender: M Sorting Supervisor: katherin : 1960 Requested By: Saul Lacy Order Number: [id number] Reading MD: Jessenia Clemons Measurements Intervals Anna Rate: 115 P: 19 VT: 120 QRS: 46 QRSD: 102 T: 52 QT: 296 QTc: 410 Interpretive Statements SINUS TACHYCARDIA INCOMPLETE RIGHT BUNDLE BRANCH BLOCK ABNORMAL RHYTHM ECG INCREASED RATE 01/30/16 Electronically Signed On 11-16-2016 15:17:16 EST by Jessenia Clemons
[2016-11-16 16:15] LABS: CREATININE FOR GFR 1.69 MG/DL (0.70-1.30); GLOMERULAR FILTRATION RATE 45.1 (>56)
[2016-11-16] MEDS ORDERED: ACETAMINOPHEN 500 MG TAB PO PRN (16:30)
[2016-11-16] MEDS: CEFEPIME HCL 1 GM in D5W MINI-BAG PLUS 50 ML IV SCH (18:00)
[2016-11-16] MEDS: VANCOMYCIN HCL 1,000 MG, VIAL MATE ADAPTER 1 EACH in D5W 250 ML IV SCH (20:30)
[2016-11-16] MEDS: MOM 30ML SUSPENSION UDC PO PRN (21:58)
[2016-11-17] VITALS (11 sets, daily range): BP systolic 96–128; BP diastolic 55–73
[2016-11-17] MEDS: HumaLOG INSULIN (NovoLOG) PER UNIT SC SCH ×5 (04:36→22:12)
[2016-11-17] MEDS: MORPHINE 4 MG/ML 1ML SYRINGE IV PRN ×2 (04:36→14:39)
[2016-11-17] MEDS: SODIUM CHLORIDE 0.9% INJ 10 ML SYR IV PRN (05:39)
[2016-11-17 05:56] LABS: BASO % 0.1 % (0.0-1.0); EOS # 0.4 K/mm3 (0.0-0.50); EOS % 1.6 % (0.0-3.0); LARGE UNSTAINED CELL # 0.1 K/mm3 (0.0-0.4); LARGE UNSTAINED CELL % 0.5 % (0.0-4.0); LYMPH # 0.6 K/mm3 (1.5-4.5); LYMPH % 2.6 % (24.0-44.0); MEAN CORPUSCULAR VOLUME 93.4 fl (80.0-96.0); MONO # 0.6 K/mm3 (0.0-0.8); MONO % 2.5 % (0.0-5.0); NEUTROPHILS # 20.7 K/mm3 (1.8-7.7); NEUTROPHILS % 92.7 % (36.0-66.0); PLATELET COUNT, AUTOMATED 157 k/mm3 (150-450); RED CELL DISTRIBUTION WIDTH 17.4 % (11.5-14.5); WHITE BLOOD COUNT 22.3 K/mm3 (4.0-10.0)
[2016-11-17 07:06] LABS: MICROSCOPIC INDICATED? MAN YES (NO)
[2016-11-17 07:08] LABS: ALBUMIN 1.7 GM/DL (3.2-5.2); ALBUMIN/GLOBULIN RATIO 0.4 (1.00-1.93); BILIRUBIN,TOTAL 0.4 MG/DL (0.2-1.0); CALCIUM LEVEL 8.1 MG/DL (8.5-10.1); CREATININE FOR GFR 1.73 MG/DL (0.70-1.30); GLOMERULAR FILTRATION RATE 43.9 (>56); MAGNESIUM LEVEL 1.5 MG/DL (1.8-2.4); POTASSIUM SERUM 4.4 MEQ/L (3.5-5.1); TOTAL PROTEIN 5.9 GM/DL (6.4-8.2)
[2016-11-17 07:35] LABS: WBC, URINE TNTC /hpf (0-3)
[2016-11-17 07:38] LABS: BACTERIA, URINE NONE SEEN; HYALINE CAST, URINE NONE SEEN /lpf (0-1); MICROSCOPIC EXAM PERFORMED; SQUAMOUS EPITHELIAL CELL URINE SMALL AMOUNT /hpf (SMALL AMT); TRANSITIONAL EPI CELLS, URINE SMALL AMOUNT /hpf
[2016-11-17] MEDS: IPRATROPIUM 0.5MG/ALBUTEROL 2.5MG INH SOL UD 3ML (DUONEB)(J7620) NEB SCH ×4 (08:07→19:37)
[2016-11-17] MEDS: PANTOPRAZOLE 40MG INJ (PROTONIX) (C9113) IV SCH (08:23)
[2016-11-17] MEDS: CHLORHEXIDINE GLUCONATE 0.12 % 15ML UDC (PERIDEX ORAL RINSE) MT SCH ×2 (08:23→22:11)
[2016-11-17] MEDS: ENOXAPARIN 30 MG/0.3 ML SYR (J1650) SC SCH (08:24)
[2016-11-17] MEDS: SODIUM CHLORIDE 0.9% INJ 10 ML SYR IV SCH (08:24)
[2016-11-17] MEDS: NICOTINE 21MG/24HR 1 EA TRANSDERMAL TD SCH (08:25)
[2016-11-17] MEDS: MORPHINE 30 MG SA TAB PO SCH ×2 (08:33→22:11)
[2016-11-17] MEDS: MAG SULF 1GM/100ML (MAG RUN) 1 GM in APPROPRIATE DILUENT 1 EA IV SCH ×2 (08:38→09:52)
--- NOTE | 2016-11-17 09:09 | IPNPDOC ---
Subjective Date Seen The patient was seen on 11/17/16. Subjective Chief Complaint/HPI Pt without new concerns this morning. He c/o of his bottom hurting he has a sore. General: Denies: Fatigue Constitutional: Denies: Chills, Fever ENT: Denies: Head Aches Pulmonary: Denies: Cough, Dyspnea Cardiovascular: Denies: Chest Pain, Palpitations Gastrointestinal: Denies: Diarrhea, Nausea, Vomiting Neurological: Reports: Weakness Psych: Reports: Mood Normal Objective Physical Examination General Exam: Positive: Alert, No Acute Distress ENT Exam: Positive: Mucous membr. moist/pink Chest Exam: Positive: Diminished, Other (bibasilar crackles) Heart Exam: Positive: Normal S1, Regular Rhythm, Tachycardic Abdomen Exam: Positive: Normal bowel sounds, Other (hepatomegaly, abd slightly firm, distended, mildly diffusely tender to palpation) Extremity Exam: Negative: Edema Psych Exam: Positive: Mental status NL Assessment /Plan Assessment Family Medicine Attending Note: I saw and examined Mr. Abbasi, discussed with CARO German. Agree with their note as documented. Both nursing and the patient reported he had a hard time waking up this morning. He came in on MS Contin 60 mg by mouth twice a day as prescribed by his oncologist in [place]. He reported this was necessary in the past to control his pain. He acknowledges that he feels the medication may be making him more sleepy at this time. As a result of this, in the morning, the nursing staff held his morning dose of the MS Contin. He required one dose of 4 mg IV breakthrough medication throughout the day. Because he did pretty well on 64 mg of morphine in the last 24 hours, I will reduce his dose to of MS Contin to 30 mg by mouth twice a day and leave the breakthrough as it stands. If this does not work well for him I will be happy to move the dose back up. 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 Lactic acid normalized. Blood cultures pending, urine culture pending. 11/16 Pt started on Cefepime/Vanco on admission D1, [place] [address] [place] [address], tmax 100.4, this morning. Recheck lactic acid. Urine and blood cultures pending. (2) ARF (acute renal failure) Status: Acute Discussed With: Nurse, Patient Problem Specific Plan: Monitor Clinically, Repeat Labs Problem Text: 11/17 - Scr down to 1.7, cont with IVF 11/16 Scr 2.41, monitor closely, on IVF (3) Malignant tumor of larynx Status: Chronic Response to Treatment: Progressing Problem Specific Plan: Monitor Clinically Problem Text: last dose of Chemo 11/02 per pt. 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 Add Levemir 10 units. A1c 11/16/16 8.9% (6) Metastases to the liver Status: Chronic Response to Treatment: Progressing Problem Text: AST 2873, ALT 105, known liver mets, INR 1.22 (7) Anemia Status: Acute Response to Treatment: Worse Discussed With: Nurse, Patient Problem Specific Plan: Monitor Clinically, Repeat Labs Problem Text: Will transfuse 2 units pRBC, consent obtained, check work up. Plan/VTE VTE Prophylaxis Ordered?: Yes Plan/Urinary Catheter Reason for insertion/continuin: Acute obstruct/retention Plan Advance Directives: DNR VS, I&O, 24H, Fishbone Vital Signs/I&O Vital Signs Date Time Temp Pulse Resp B/P Pulse Ox O2 Delivery O2 Flow Rate FiO2 11/17/16 08:33 16 11/17/16 07:43 Trach Collar 8.0 35 11/17/16 07:42 96.0 104 96/55 96 I&O- Last 24 Hours up to 6 AM 11/17/16 06:00 Intake Total 4429 ml Output Total 1730 ml Balance 2699 ml Laboratory Data 24H LABS Laboratory Tests 2 11/16/16 10:17: Lactic Acid (Sepsis) 1.9 11/16/16 11:29: Bedside Glucose (Misc Panel) 258H 11/16/16 13:40: Estimated Mean Plasma Glucose 209H, Hemoglobin A1c 8.9H 11/16/16 15:15: Urine Random Creatinine 39.7, Urine Random Sodium 34 11/16/16 15:50: Glomerular Filtration Rate 45.1L 11/16/16 16:09: Bedside Glucose (Misc Panel) 238H 11/16/16 20:13: Bedside Glucose (Misc Panel) 296H 11/16/16 23:53: Bedside Glucose (Misc Panel) 292H 11/17/16 04:28: Bedside Glucose (Misc Panel) 185H 11/17/16 05:00: Bedside Urine Appearance (LAB) TURBIDH, Bedside Urine Bilirubin (LAB) NEGATIVE, Bedside Urine Blood POSITIVEH, Bedside Urine Color (LAB) LT YELLOW, Bedside Urine Glucose (UA) NEGATIVE, Bedside Urine Ketones (LAB) NEGATIVE, Bedside Urine Leukocyte Esterase (L POSITIVEH, Bedside Urine Nitrite (LAB) NEGATIVE, Bedside Urine Protein (LAB) 1+H, Bedside Urine Specific [place] (LAB 1.010, Bedside Urine Urobilinogen (LAB) NORMAL, Bedside Urine pH (LAB) 6.0, Microscopic Urinalysis Comment , Urine WBC TNTCH, Urine RBC 10-15H, Urine Squamous Epithelial Cells SMALL AMOUNT, Urine Transitional Epithelial Cells SMALL AMOUNTH, Urine Bacteria NONE SEEN, Urine Hyaline Casts NONE SEEN, Urine Amorphous Sediment LARGE AMOUNTH, Urine Sediment Examination PERFORMED 11/17/16 05:40: Blood Urea Nitrogen 47H, Creatinine 1.73H, Sodium Level 134L, Potassium Level 4.4#, Chloride Level 100, Carbon Dioxide Level 23, Calcium Level 8.1L, Aspartate Amino Transf (AST/SGOT) 84H, Alanine Aminotransferase (ALT/SGPT) 68, Alkaline Phosphatase 708H, Total Bilirubin 0.4, Total Protein 5.9L, Albumin 1.7L , Albumin/Globulin Ratio 0.40L, Anion Gap 11, White Blood Count 22.3H, Red Blood Count 2.68L, Hemoglobin 7.5L, Hematocrit 25.0L, Mean Corpuscular Volume 93.4, Mean Corpuscular Hemoglobin 28.0, Mean Corpuscular Hemoglobin Concent 30.0L, Red Cell Distribution Width 17.4H, Platelet Count 157, Neutrophils (%) ( Auto) 92.7H, Lymphocytes (%) (Auto) 2.6L, Monocytes (%) (Auto) 2.5, Eosinophils (%) (Auto) 1.6, Basophils (%) (Auto) 0.1, Neutrophils # (Auto) 20.7H, Lymphocytes # (Auto) 0.6L, Monocytes # (Auto) 0.6, Eosinophils # (Auto) 0.4, Basophils # (Auto) 0.0, Glomerular Filtration Rate 43.9L, Large Unclassified Cells # 0.1, Large Unclassified Cells % 0.5, Magnesium Level 1.5L 11/17/16 07:54: Bedside Glucose (Misc Panel) 176H CBC/BMP Laboratory Tests 11/16/16 15:50 11/17/16 05:40 Calcium Level 8.1 L, Aspartate Amino Transf (AST/SGOT) 84 H, Alanine Aminotransferase (ALT/SGPT) 68, Alkaline Phosphatase 708 H, Total Bilirubin 0.4 , Total Protein 5.9 L, Albumin 1.7 L, Red Blood Count 2.68 L, Mean Corpuscular Volume 93.4, Mean Corpuscular Hemoglobin 28.0, Mean Corpuscular Hemoglobin Concent 30.0 L, Red Cell Distribution Width 17.4 H, Neutrophils (%) (Auto) 92.7 H, Lymphocytes (%) (Auto) 2.6 L, Monocytes (%) (Auto) 2.5, Eosinophils (%) (Auto ) 1.6, Basophils (%) (Auto) 0.1, Neutrophils # (Auto) 20.7 H, Lymphocytes # ( Auto) 0.6 L, Monocytes # (Auto) 0.6, Eosinophils # (Auto) 0.4, Basophils # (Auto ) 0.0 Microbiology Microbiology 11/15/16 Blood Culture - Preliminary, Resulted No growth after 24 hours . All specim... 11/15/16 Blood Culture - Preliminary, Resulted No growth after 24 hours . All specim... 11/17/16 Urine Culture, Received Pending 11/15/16 Urine Culture - Final, Complete SANDRA PARSON PA-C Nov 17, 2016 09:09 Bert Ortiz MD Nov 17, 2016 19:45
[2016-11-17 10:07] LABS: PERCENT SATURATION 14.7 % (19.7-37.4); TOTAL IRON BINDING CAPACITY 143 UG/DL (250-450)
[2016-11-17 10:09] LABS: FERRITIN 7559 NG/ML (26-388)
[2016-11-17] MEDS ORDERED: VANCOMYCIN HCL 1,000 MG, VIAL MATE ADAPTER 1 EACH in D5W 250 ML IV SCH (17:00)
[2016-11-17] MEDS: CEFEPIME HCL 1 GM in D5W MINI-BAG PLUS 50 ML IV SCH (17:37)
--- NOTE | 2016-11-17 18:31 | PHACANCOPD ---
PHARMACY VANCOMYCIN DOSING Pt Demographics Demographics Patient Age:55 , Weight:76.700 , Gender: male Adjusted Body Weight Date: 11/15/16, Adjusted Body Weight: Kg Events Past 24 Hours Events Past 24 Hours: YES: Change in CrCl, Fever, NO: Dialysis, Diuretic Therapy, Elevation in WBC, Other, Pending Diagnostics , Pending Procedures Vancomycin Vancomycin indication: SEPSIS Vancomycin Target Ranges: 15-20 mcg/ml Vancomycin Load Y/N: No Load Dose Date Time Vancomycin Load Dose: Date: Time: Vancomycin Dose Date: 11/17/16. Current Vancomycin Dose: [1g IV q18h @17] Date: 11/15/16. Current Vancomycin Dose: [1g IV q24h @21] Intermittent Dosing?: No Labs Labs Item Value Date Time White Blood Count 34.1 K/mm3 *H 11/15/16 1701 White Blood Count 30.7 K/mm3 *H 11/16/16 0629 White Blood Count 22.3 K/mm3 H 11/17/16 0540 Band Neutrophils 4 % 11/15/16 1701 Band Neutrophils 3 % 11/16/16 0629 Random Vancomycin Level 9.6 UG/ML 11/17/16 1700 Creatinine 1.69 MG/DL H 11/16/16 1550 Creatinine 1.73 MG/DL H 11/17/16 0540 Creatinine 2.28 MG/DL H 11/16/16 0412 Creatinine 2.41 MG/DL H 11/16/16 0629 Vital Signs Label Value Date Time Patient Temperature 99.4 degrees F 11/17/16 1350 Temperature Source Tympanic 11/17/16 1350 Patient Temperature 100.3 degrees F 11/17/16 1405 Temperature Source Tympanic 11/17/16 1405 Patient Temperature 100.0 degrees F 11/17/16 1505 Temperature Source Tympanic 11/17/16 1505 Patient Temperature 101.0 degrees F 11/17/16 1600 Temperature Source Tympanic 11/17/16 1600 Micro Microbiology 11/15/16 Blood Culture - Preliminary, Resulted No growth after 24 hours . All specim... 11/15/16 Blood Culture - Preliminary, Resulted No Growth after 48 hours. All Specime... 11/17/16 Urine Culture, Received Pending 11/15/16 Urine Culture - Final, Complete Creatinine Clearance Date:11/17/16. Creatinine Clearance: [35 ml/min]. Date:11/15/16. Creatinine Clearance: [22 ml/min]. Assessment and Plan Maintaining Current Dose?: No Reason for dose change: Trough too low Pharmacist Note Pharmacist Note Date: 11/17/16. Pharmacist note: random vancomycin level drawn 4 hours before the 3rd dose came back at 9.8. His renal function has greatly improved and I have changed his dosing to 1g q18h to start now. WBCs are improving. All cultures have been NGTD. I will continue to monitor renal function and adjust dosing accordingly. Date: 11/15/16. Pharmacist note: pt has been admitted for sepsis, he has been started on cefepime and vancomycin. He has a Hx of MRSA - last urine culture on 09/26/15 DERRICK = 1. He is currently in acute renal failure, baseline SCr is ~1. I have started him on 1g IV q24h to be reassessed tomorrow morning based on renal function. We will continue to monitor. Kuwlant Tian Pharm.D. Nov 17, 2016 18:31
[2016-11-17] MEDS: MOM 30ML SUSPENSION UDC PO PRN (22:11)
[2016-11-17] MEDS: LEVEMIR (INSULIN DETEMIR) 1 UNITS/0.01ML SC SCH (22:12)
--- NOTE | 2016-11-17 22:44 | EDDOCDS ---
Nurse's Notes [facility] Name: Martínez Abbasi Age: 55 yrs Sex: Male : 1960 Arrival Date: 11/15/2016 Time: 16:05 Bed 12 Private MD: Diagnosis: Sepsis, unspecified organism;Hyperglycemia, unspecified;Acute kidney failure;Hypo-osmolality and hyponatremia;Malignant neoplasm of larynx Presentation: 11/15 16:21 Presenting complaint: EMS states: Patient family called EMS for respiratory distress. js13 Patient was supposed to go to [place] today to have inner cannula placed and tracheostomy cleaned and checked. Patient was too weak to go. EMS suctioned large amount of thick brown sputum out of trach. Suicide/Homicide risk assessment- the patient denies having any suicidal and/or homicidal ideations and does not present with any other emotional, behavioral or mental health complaints. Status: Patient is not a career services officer or dependent. Transition of care: patient was not received from another setting of care. Care prior to arrival: See EMS report. 16:21 Acuity: PHILIPPE Level 3 [facility] 16:21 Method Of Arrival: Ambulance [facility] 16:26 Adult Sepsis Screening: The patient does not have new or worsening altered mentation. js13 Patient's respiratory rate is less than 22. Systolic blood pressure is greater than 100. Patient has a qSOFA score of 0- Negative Sepsis Screen. Triage Assessment: 16:24 General: Appears comfortable, Behavior is appropriate for age, cooperative. Pain: js13 Denies pain. Pt Declines HIV testing. Neurological: Level of Consciousness is awake, alert, obeys commands. Respiratory: Onset: The symptoms/episode began/occurred today, Airway via trache Respiratory effort is even, unlabored, Respiratory pattern is regular, Breath sounds with rhonchi Breath sounds are diminished. Derm: Skin is pink, warm & dry. Historical: - Allergies: no known allergies; - Home Meds: 1. Compazine 5 mg Oral tab Unknown 2. hydrocodone-acetaminophen 7.5-325 mg Oral tab up to 12 daily 3. morphine 60 mg Oral CERP 1 cap 2 times per day 4. ondansetron HCl 4 mg Oral tab every 4 hours as needed 5. prochlorperazine maleate 10 mg Oral tab every 6 hours as needed - PMHx: Bladder Cancer; laryngeal cancer; - PSHx: Tracheostomy; Bladder scraping X2; Bladder removed and reconstructed from Large intestine; - The history from nurses notes was reviewed: and I agree with what is documented. - Social history: Smoking status: Patient states former smoker of tobacco. Patient is speech impaired. - Family history: Not pertinent. - : The pt / caregiver states he / she is not on anticoagulants. Home medication list is obtained from the patient. - Hospitalizations: : No recent hospitalization is reported. - Exposure Risk Screening:: None identified. - Immunization history:: All immunizations up-to-date. - Social history:: the patient is a non-smoker, the patient does not drink alcohol. Screenin:27 Screening information is obtained from the patient. Fall risk: No risks identified. js13 Assistance ADL's: Requires assistance with. Abuse/DV Screen: The patient / caregiver reports he/she is: not in a situation that causes fear, pain or injury. Nutritional screening: No deficits noted. Advance Directives: There is no active DNR order. home support is adequate. Assessment: 16:26 General: Appears comfortable, Behavior is appropriate for age, cooperative. Pain: js13 Denies pain. Neurological: Level of Consciousness is awake, alert. Cardiovascular: Rhythm is sinus tachycardia Chest pain is denied. Respiratory: Airway via trache Respiratory effort is even, unlabored, Respiratory pattern is regular, Sputum is thick, brown. Respiratory: Breath sounds with rhonchi Breath sounds are diminished. Derm: Skin is pink, warm & dry. 17:15 General: Appears comfortable, Behavior is appropriate for age, cooperative. Pain: js13 Denies pain. Neurological: Level of Consciousness is awake, alert. Cardiovascular: Rhythm is sinus tachycardia Chest pain is denied. Respiratory: Airway via trache Respiratory effort is even, unlabored, Respiratory pattern is regular, Sputum is thick, brown. Derm: Skin is pink, warm & dry. 19:15 Adult Sepsis Screening: The patient does not have new or worsening altered mentation. mlc Patient's respiratory rate is less than 22. Systolic blood pressure is greater than 100. Patient has a qSOFA score of 0- Negative Sepsis Screen. 19:15 General: Appears comfortable, ill. General: Family at bedside, Dr. Bustillo at bedside. . [facility] [place] Pain: Denies pain. Neurological: Level of Consciousness is awake, alert, obeys commands, Oriented to person, place, time. Respiratory: Airway is patent via trache Respiratory effort is even, unlabored, Respiratory pattern is regular. 19:55 General: Appears ill. Pain: Denies pain. Neurological: Level of Consciousness is awake, mlc alert, Oriented to person, place, time. Cardiovascular: Heart tones S1 S2 present Rhythm is sinus tachycardia Chest pain is denied. Respiratory: Airway is patent via trache Respiratory effort is even, unlabored, Respiratory pattern is regular, Breath sounds with rhonchi Breath sounds are diminished. GI: Bowel sounds present X 4 quads. Derm: Skin is pale. 20:18 Reassessment: IV discontinued accidently in CT. Bleeding controlled. . mlc 20:49 Reassessment: Patient appears in no apparent distress at this time. pt resting mlc comfortably in bed, resp easy/unlabored. IV fluids infusing per order. Family at bedside. 21:09 General: pt reports decrease in pain to a 6/10. pt across chest and low back. . mlc 21:40 General: Appears comfortable, ill, Behavior is cooperative. Pain: Pain currently is 6 mlc out of 10 on a pain scale. Neurological: Level of Consciousness is awake, alert, Oriented to person, place, time. Respiratory: Airway is patent Respiratory effort is even, unlabored, Respiratory pattern is regular, Breath sounds with rhonchi Breath sounds are diminished. Derm: Skin is pale. Vital Signs: 16:19 BP 121 / 73; Pulse 139; Resp 20; Temp 99.1(TE); Pulse Ox 94% on 2 lpm NC; dem1 16:24 Weight 72.57 kg; Height 5 ft. 5 in. (165.10 cm); dem1 17:06 BP 105 / 64 (auto/); js13 17:06 Pulse 128 MON; Resp 18; Pulse Ox 93% on 35% Venturi mask; js13 17:21 BP 105 / 68 (auto/); js13 17:21 Pulse 124 MON; Resp 18; Pulse Ox 94% on 35% Venturi mask; js13 17:35 Pulse 122 MON; Pulse Ox 96% ; mlc 17:36 BP 104 / 71 (auto/); mlc 17:51 Pulse 118 MON; Pulse Ox 97% ; mlc 17:51 BP 107 / 62 (auto/); mlc 18:05 Pulse 114 MON; Pulse Ox 98% ; mlc 18:06 BP 94 / 60 (auto/); mlc 18:20 Pulse 118 MON; Pulse Ox 98% ; mlc 18:21 BP 103 / 57 (auto/); mlc 18:35 Pulse 114 MON; Pulse Ox 98% ; mlc 18:36 BP 103 / 63 (auto/); mlc 18:52 Pulse 122 MON; Pulse Ox 97% ; mlc 18:53 BP 111 / 64 (auto/); mlc 19:05 Pulse 116 MON; Pulse Ox 95% ; mlc 19:06 BP 111 / 68 (auto/); mlc 19:21 BP 115 / 74 (auto/); mlc 19:21 Pulse 108 MON; Pulse Ox 98% ; mlc 19:35 Pulse 104 MON; Pulse Ox 98% ; mlc 19:36 BP 106 / 64 (auto/); mlc 19:50 Pulse 102 MON; Pulse Ox 99% ; mlc 19:51 BP 121 / 81 (auto/); mlc 20:25 Pulse 100 MON; Pulse Ox 99% ; mlc 20:26 Pulse 100 MON; Pulse Ox 99% ; mlc 20:27 BP 104 / 61 (auto/); mlc 20:35 Pulse 98 MON; Pulse Ox 99% ; mlc 20:36 BP 107 / 65 (auto/); mlc 20:49 Pulse 96 MON; Pulse Ox 100% ; mlc 20:50 Pulse 96 MON; Pulse Ox 100% ; mlc 20:51 BP 110 / 61 (auto/); mlc 21:05 Pulse 100 MON; Resp 20; Pulse Ox 99% ; Pain 6/10; mlc 21:06 BP 113 / 69 (auto/); mlc 21:31 Pulse 94 MON; Resp 18; Temp 96.5; Pulse Ox 99% ; Pain 6/10; mlc 21:32 BP 114 / 55 (auto/); mlc 16:24 Body Mass Index 26.62 (72.57 kg, 165.10 cm) [email or web address] Vitals: 16:19 Log In Time N/A - ambulance arrival. [email or web address] ED Course: 16:06 Patient visited by Sabine Hector, Oil Sprayer. deg 16:06 Patient moved to Waiting deg 16:07 Emma Hicks,RN is Primary Nurse. deg 16:07 Patient moved to 12 deg 16:20 Patient visited by Jenny Poole. dem1 16:23 Triage Initiated js13 16:24 Patient visited by Jenny Poole. dem1 16:27 Patient visited by Emma Hicks,MILES. js13 16:27 The patient / caregiver is instructed regarding the plan of care and ED course. js13 16:29 Saul Miller MD is Attending Physician. pc 16:32 Patient visited by Saul Miller MD. pc 16:50 O2 via Venturi mask \T\ 9L/min - 35%. js13 17:04 CBC with Diff Sent. js13 17:04 MED Profile Sent. js13 17:05 Accessed using accessed w/ # 20 Salas needle, sterile technique, per hospital protocol. js13 InfusaPort in patient's anterior aspect of right upper chest. Good blood return. Flushes easily. No procedures done that require assistance. Labs drawn. (by ED staff). Sent per order to lab. Labs/Blood culture drawn. 17:16 Patient visited by Emma Hicks RN. js13 17:45 Chest, 2 View (pa\E\lat) Returned. EDMS 17:54 DIFFERENTIAL NO CHARGE Sent. mcp 17:55 [facility] [place] into [employer] and attached to record. ks16 18:04 EKG done. (by ED staff). Reviewed by Saul Miller MD. dem1 18:05 Patient visited by Jenny Poole. dem1 18:20 [facility] [place] was scanned into Re[employer] and attached to record. kf3 18:33 Osmolality, Serum Sent. ml6 18:33 BLOOD CULTURES Sent. ml6 18:33 Venous Blood Gas (large pea green tube on ice) Sent. ml6 18:38 Fauzia Bustillo is Hospitalizing Provider. pc 18:39 -Arterial Blood Gas Sent. ac1 18:56 BASIC METABOLIC PROFILE Sent. js13 19:09 Urinalysis Sent. ml6 19:09 Urine Culture Sent. ml6 19:09 Osmolality,Urine Sent. ml6 19:09 Urine Random,Creatinine Sent. ml6 19:09 Urine Random,Sodium Sent. ml6 19:23 Juana Sanderson RN is Primary Nurse. mlc 19:24 Patient visited by Juana Sanderson RN. mlc 19:50 Inserted saline lock: 22 gauge in left antecubital area The patient tolerated the jo3 procedure well. 20:01 Patient visited by Emma Nielson RN. jo3 20:27 Patient visited by Juana Sanderson RN. mlc 20:28 Missed attempts: 20 gauge X 1 right upper arm. js15 20:29 Inserted saline lock: 20 gauge in left upper arm. js15 20:45 CT ABD & PELVIS W/O CONTRAST Returned. EDMS 21:09 Patient visited by Juana Sanderson RN. mlc Administered Medications: 17:09 Drug: heparin 100units/mL flush (infusaport) 5 ml [heparin flush (porcine) 100 unit/mL js13 in 0.9 % sodium chloride IV kit (5 mL)] Route: IVP; Site: Implantable Access Device; 18:03 Drug: NS 0.9% 1000 ml [sodium chloride 0.9 % intravenous solution] Route: IV; Rate: js13 bolus; Site: Implantable Access Device; 20:48 Follow up: IV Status: Completed infusion mlc 18:16 Drug: Insulin Regular Human 10 units [insulin regular human 100 unit/mL injection js13 solution (0.1 mL)] {Co-Signature: ml6 (Sekou Mcbride RN).} Route: IVP; Site: Implantable Access Device; 18:17 Drug: Calcium Chloride 1 grams [calcium chloride 100 mg/mL (10 %) intravenous syringe js13 (10 mL)] {Co-Signature: ml6 (Sekou Mcbride RN).} Route: IVP; Site: Implantable Access Device; 19:09 Drug: Cefepime 2 grams [cefepime 2 gram solution for injection] Route: IVPB; Rate: 100 ml6 mL/hr; Infused Over: 30 mins; Site: Implantable Access Device; 19:29 Follow up: IV Status: Completed infusion mlc 19:53 Drug: Insulin Regular Human Infusion (0.1units/kg/hr) 8 units/hr [insulin regular human mlc 100 unit/mL injection solution] {Co-Signature: jo3 (Emma Nielson RN).} Route: IV; Rate: calculated rate; Site: left antecubital; 20:39 Drug: morphine 4 mg [morphine 4 mg/mL intravenous cartridge (1 mL)] Route: IVP; Site: js15 left upper arm; 21:08 Follow up: Response: Pain is decreased mlc 20:53 Drug: NS 0.9% (Sepsis- hypotension or lactate >4mmol/L, 30ml/kg) 2200 ml [sodium mlc chloride 0.9 % intravenous solution] Route: IV; Rate: bolus; Site: Implantable Access Device; Point of Care Testing: Blood Glucose: 19:24 Blood Glucose: High; mlc 20:51 Blood Glucose: High; mlc 21:31 Blood Glucose: High; mlc Ranges: Intake: 20:49 IV: 1000.00ml (NS); Total: 1000.00ml. mlc RT: 18:39 ABG's drawn from right radial artery allens test done and positive pressure held for 5 ac1 minutes no bleeding noted pressure bandage applied specimen sent pt. tolerated well. Order Results: Lab Order: CBC with Diff; SPEC'M 11/15/16 17:01 Test: WHITE BLOOD COUNT; Value: 34.1; Range: 4.0-10.0; Abnormal: Above upper panic limits; Units: K/mm3; Status: F Test: RED BLOOD COUNT; Value: 3.19; Range: 4.30-6.10; Abnormal: Below low normal; Units: M/mm3; Status: F Test: HEMOGLOBIN; Value: 9.1; Range: 14.0-18.0; Abnormal: Below low normal; Units: g/dl; Status: F Test: HEMATOCRIT; Value: 31.4; Range: 42.0-52.0; Abnormal: Below low normal; Units: %; Status: F Test: MEAN CORPUSCULAR VOLUME; Value: 98.6; Range: 80.0-96.0; Abnormal: Above high normal; Units: fl; Status: F Test: MEAN CORPUSCULAR HEMOGLOBIN; Value: 28.4; Range: 27.0-33.0; Units: pg; Status: F Test: MEAN CORPUSCULAR HGB CONC; Value: 28.9; Range: 32.0-36.5; Abnormal: Below low normal; Units: g/dl; Status: F Test: RED CELL DISTRIBUTION WIDTH; Value: 17.0; Range: 11.5-14.5; Abnormal: Above high normal; Units: %; Status: F Test: PLATELET COUNT, AUTOMATED; Value: 226; Range: 150-450; Units: k/mm3; Status: F Test: PLATELET ESTIMATE; Range: NORMAL; Status: I Test: NEUTROPHILS; Value: 90; Range: 35-75; Abnormal: Above high normal; Units: %; Status: F Test: BANDS; Value: 4; Range: < 11; Units: %; Status: F Test: LYMPHOCYTES; Value: 1; Range: 16-52; Abnormal: Below low normal; Units: %; Status: F Test: MONOCYTES; Value: 5; Range: 0-8; Units: %; Status: F Test: POLYCHROMASIA; Value: 1+; Status: F Test: HYPOCHROMASIA; Value: 2+; Status: F Test: ANISOCYTOSIS; Value: 1+; Status: F Test: MACROCYTOSIS; Value: 1+; Status: F Lab Order: MED Profile; SPEC'M 11/15/16 17:01 Test: GLUCOSE, FASTING; Value: 883; Range: 70-105; Abnormal: Above upper panic limits; Units: MG/DL; Status: F Test: BLOOD UREA NITROGEN; Value: 46; Range: 7-18; Abnormal: Above high normal; Units: MG/DL; Status: F Test: CREATININE FOR GFR; Value: 2.84; Range: 0.70-1.30; Abnormal: Above high normal; Units: MG/DL; Status: F Test: GLOMERULAR FILTRATION RATE; Value: 24.8; Range: >56; Abnormal: Below low normal; Status: F Test: SODIUM LEVEL; Value: 121; Range: 136-145; Abnormal: Below low normal; Units: MEQ/L; Status: F Test: POTASSIUM SERUM; Value: 6.1; Range: 3.5-5.1; Abnormal: Above upper panic limits; Units: MEQ/L; Status: F Test: CHLORIDE LEVEL; Value: 82; Range: 98-107; Abnormal: Below low normal; Units: MEQ/L; Status: F Test: CARBON DIOXIDE LEVEL; Value: 24; Range: 21-32; Units: MEQ/L; Status: F Test: ANION GAP; Value: 15; Range: 8-16; Units: MEQ/L; Status: F Test: CALCIUM LEVEL; Value: 9.8; Range: 8.5-10.1; Units: MG/DL; Status: F Test Note: ; Units are mL/min/1.73 m2 Chronic Kidney Disease Staging per NKF: Stage I & II GFR >=60 Normal to Mildly Decreased Stage III GFR 30-59 Moderately Decreased Stage IV GFR 15-29 Severely Decreased Stage V GFR <15 Very Little GFR Left ESRD GFR <15 on ENVIRONMENTAL REMEDIATION SPECIALIST Lab Order: PLATELET ESTIMATE; 11/15/16 17:01 Test: PLATELET ESTIMATE; Value: NORMAL; Range: NORMAL; Status: F Lab Order: Lactic Acid (Gabriel tube on ice); 11/15/16 17:01 Test: LACTIC ACID SEPSIS PROTOCOL; Value: 5.8; Range: 0.4-2.0; Abnormal: Above upper panic limits; Units: MMOL/L; Status: F Lab Order: Venous Blood Gas (large pea green tube on ice); 11/15/16 18:27 Test: VENOUS PH; Value: 7.385; Range: 7.330-7.430; Units: UNITS; Status: F Test: VENOUS PARTIAL PRESSURE CO2; Value: 38.1; Range: 38.0-50.0; Units: mmHg; Status: F Test: VENOUS PARTIAL PRESSURE O2; Value: 138.7; Range: 30.0-50.0; Abnormal: Above high normal; Units: mmHg; Status: F Test: VENOUS TOTAL CO2; Value: 23.5; Range: 24.0-28.0; Abnormal: Below low normal; Units: MEQ/L; Status: F Test: VENOUS HCO3; Value: 22.3; Range: 23.0-27.0; Abnormal: Below low normal; Units: MEQ/L; Status: F Test: VENOUS BASE EXCESS; Value: -2.4; Range: -2.0-2.0; Abnormal: Below low normal; Status: F Test: VENOUS STANDARD HCO3; Value: 22.5; Units: MEQ/L; Status: F Test: VENOUS O2 SATURATION; Value: 99.2; Range: 60.0-80.0; Abnormal: Above high normal; Units: %; Status: F Lab Order: Osmolality, Serum; 11/15/16 18:27 Test: OSMOLALITY SERUM; Value: 317; Range: 275-295; Abnormal: Above high normal; Units: MOSM/KG; Status: F Lab Order: Osmolality,Urine; 11/15/16 19:10 Test: OSMOLALITY URINE; Value: 330; Range: 500-800; Abnormal: Below low normal; Units: MOSM/KG; Status: F Lab Order: Urine Random,Creatinine; 11/15/16 19:10 Test: CREATININE,RANDOM URINE; Value: 75.1; Units: MG/DL; Status: F Lab Order: Urine Random,Sodium; 11/15/16 19:10 Test: SODIUM,RANDOM URINE; Value: 23; Units: MEQ/L; Status: F Lab Order: -Arterial Blood Gas; [facility] 11/15/16 18:38 Test: ABG pH (ARTERIAL); Value: 7.359; Range: 7.350-7.450; Units: UNITS; Status: F Test: ABG PARTIAL PRESSURE CO2; Value: 42.1; Range: 35.0-45.0; Units: mmHg; Status: F Test: ABG PARTIAL PRESSURE O2; Value: 104.5; Range: 75.0-100.0; Abnormal: Above high normal; Units: mmHg; Status: F Test: ABG TOTAL CO2; Value: 24.5; Range: 22.0-29.0; Units: MEQ/L; Status: F Test: ABG HCO3; Value: 23.2; Range: 22.0-26.0; Units: MEQ/L; Status: F Test: ABG BASE EXCESS; Value: -2.1; Range: -2.0-2.0; Abnormal: Below low normal; Status: F Test: ABG STANDARD HCO3; Value: 22.7; Range: 22.0-26.0; Units: MEQ/L; Status: F Test: ABG O2 SATURATION; Value: 98.3; Range: 95.0-99.0; Units: %; Status: F Test: ABG DEVICE; Value: NASAL FARHAT; Status: F Lab Order: Amylase; 11/15/16 18:41 Test: AMYLASE; Value: 23; Range: 25-115; Abnormal: Below low normal; Units: U/L; Status: F Lab Order: C Reactive Protein; 11/15/16 18:41 Test: C REACTIVE PROTEIN QUANTITATIV; Value: 26.50; Range: 0.00-0.30; Abnormal: Above high normal; Units: MG/DL; Status: F Lab Order: Liver Profile; [facility] 11/15/16 18:41 Test: AST/SGOT; Value: 348; Range: 15-37; Abnormal: Above high normal; Units: U/L; Status: F Test: ALT/SGPT; Value: 90; Range: 12-78; Abnormal: Above high normal; Units: U/L; Status: F Test: ALKALINE PHOSPHATASE; Value: 690; Range: 45-117; Abnormal: Above high normal; Units: U/L; Status: F Test: BILIRUBIN,TOTAL; Value: 0.3; Range: 0.2-1.0; Units: MG/DL; Status: F Test: BILIRUBIN,DIRECT; Value: 0.2; Range: 0.0-0.2; Units: MG/DL; Status: F Test: TOTAL PROTEIN; Value: 6.4; Range: 6.4-8.2; Units: GM/DL; Status: F Test: ALBUMIN; Value: 1.9; Range: 3.2-5.2; Abnormal: Below low normal; Units: GM/DL; Status: F Test: ALBUMIN/GLOBULIN RATIO; Value: 0.42; Range: 1.00-1.93; Abnormal: Below low normal; Status: F Lab Order: PT/INR; 11/15/16 17:01 Test: PROTHROMBIN TIME; Value: 15.5; Range: 12.3-14.5; Abnormal: Above high normal; Units: SECONDS; Status: F Test: INR; Value: 1.22; Status: F Test Note: ; THERAPUTIC HUMAN INR VALUES INDICATIONS NORMAL RANGES PROPHYLAXIS/TREATMENT OF: VENOUS THROMBOSIS 2.0-3.0 PULMONARY EMBOLISM 2.0-3.0 PREVENTION OF SYSTEMIC EMBOLISM FROM: TISSUE HEART VALVES 2.0-3.0 ACUTE MYOCARDIAL INFARCTION 2.0-3.0 VALVULAR HEART DISEASE 2.0-3.0 ATRIAL FIBRILLATION 2.0-3.0 MECHANICAL VALVES(HIGH RISK) 2.5-3.5 RECURRENT MYOCARDIAL INFARCTION 2.5-3.5 Lab Order: PTT; 11/15/16 17:01 Test: PARTIAL THROMBOPLASTIN TIME; Value: 31.5; Range: 26.6-37.1; Units: SECONDS; Status: F Lab Order: Type & Screen; 11/15/16 18:41 Test: BLOOD TYPE; Value: O POS; Status: F Test: AB SCREEN (INDIRECT DILEEP)VIS; Value: NEGATIVE; Status: F Lab Order: Urinalysis; SPEC'M 11/15/16 19:10 Test: APPEARANCE, URINE; Value: CLOUDY; Range: CLEAR; Abnormal: Above high normal; Status: F Test: COLOR, URINE; Value: YELLOW; Range: YELLOW; Status: F Test: PH,URINE; Value: 7.0; Range: 5.0-9.0; Units: UNITS; Status: F Test: SPECIFIC GRAVITY URINE AUTO; Value: 1.016; Range: 1.002-1.035; Status: F Test: PROTEIN, URINE AUTO; Value: 1+; Range: NEGATIVE; Abnormal: Above high normal; Units: mg/dL; Status: F Test: GLUCOSE, URINE (UA) AUTO; Value: 3+; Range: NEGATIVE; Abnormal: Above high normal; Units: mg/dL; Status: F Test: KETONE, URINE AUTO; Value: NEGATIVE; Range: NEGATIVE; Units: mg/dL; Status: F Test: UROBILINOGEN, URINE AUTO; Value: 0.2; Range: 0.0-2.0; Units: mg/dL; Status: F Test: BILIRUBIN, URINE AUTO; Value: NEGATIVE; Range: NEGATIVE; Status: F Test: NITRITE, URINE AUTO; Value: NEGATIVE; Range: NEGATIVE; Status: F Test: LEUKOCYTE ESTERASE, URINE AUTO; Value: 1+; Range: NEGATIVE; Abnormal: Above high normal; Status: F Test: BLOOD, URINE BLOOD; Value: 3+; Range: NEGATIVE; Abnormal: Above high normal; Status: F Test: WBC, URINE AUTO; Value: 30; Range: 0-3; Abnormal: Above high normal; Units: /HPF; Status: F Test: RBC, URINE AUTO; Value: 54; Range: 0-3; Abnormal: Above high normal; Units: /HPF; Status: F Test: BACTERIA, URINE AUTO; Value: 2+; Range: NEGATIVE; Abnormal: Above high normal; Status: F Test: SQUAMOUS EPITHELIAL CELL UR AU; Value: 0; Range: 0-6; Units: /HPF; Status: F Test: MUCUS, URINE; Value: SMALL; Range: NEGATIVE; Status: F Test: HYALINE CAST, URINE AUTO; Value: 0; Range: 0-1; Units: /LPF; Status: F Lab Order: FT4&TSH PANEL; SPEC'M 11/15/16 18:41 Test: THYROID STIMULATING HORMONE; Value: 8.470; Range: 0.358-3.740; Abnormal: Above high normal; Units: uIU/ML; Status: F Test: FREE T4; Value: 0.80; Range: 0.76-1.46; Units: NG/DL; Status: F Lab Order: BASIC METABOLIC PROFILE; TERI'Steven 11/15/16 18:41 Test: GLUCOSE, FASTING; Value: 769; Range: 70-105; Abnormal: Above upper panic limits; Units: MG/DL; Status: F Test: BLOOD UREA NITROGEN; Value: 47; Range: 7-18; Abnormal: Above high normal; Units: MG/DL; Status: F Test: CREATININE FOR GFR; Value: 2.76; Range: 0.70-1.30; Abnormal: Above high normal; Units: MG/DL; Status: F Test: GLOMERULAR FILTRATION RATE; Value: 25.6; Range: >56; Abnormal: Below low normal; Status: F Test: SODIUM LEVEL; Value: 123; Range: 136-145; Abnormal: Below low normal; Units: MEQ/L; Status: F Test: POTASSIUM SERUM; Value: 5.5; Range: 3.5-5.1; Abnormal: Above high normal; Units: MEQ/L; Status: F Test: CHLORIDE LEVEL; Value: 88; Range: 98-107; Abnormal: Below low normal; Units: MEQ/L; Status: F Test: CARBON DIOXIDE LEVEL; Value: 22; Range: 21-32; Units: MEQ/L; Status: F Test: ANION GAP; Value: 13; Range: 8-16; Units: MEQ/L; Status: F Test: CALCIUM LEVEL; Value: 10.6; Range: 8.5-10.1; Abnormal: Above high normal; Units: MG/DL; Status: F Test Note: ; Units are mL/min/1.73 m2 Chronic Kidney Disease Staging per NKF: Stage I & II GFR >=60 Normal to Mildly Decreased Stage III GFR 30-59 Moderately Decreased Stage IV GFR 15-29 Severely Decreased Stage V GFR <15 Very Little GFR Left ESRD GFR <15 on ENVIRONMENTAL REMEDIATION SPECIALIST Radiology Order: Chest, 2 View (pa\E\lat) Test: Chest, 2 View (pa\E\lat) REASON FOR EXAMINATION: Shortness of Breath; Clinical: Shortness of breath.; ; Technique: PA and lateral.; ; Comparison: 03/24/2016.; ; Findings:; [id number] with tip in the SVC remains stable.; Tracheostomy overlies the airway.; Mediastinum and cardiac silhouette are normal. The lung oliveira are clear and; without acute consolidation, effusion, or pneumothorax. Skeletal structures are; intact.; ; Impression:; Stable chest x-ray. No acute cardiopulmonary process appreciated.; ; ; Signed by; Jose De Jesus Brody MD 11/15/2016 04:50 P; Radiology Order: CT ABD & PELVIS W/O CONTRAST Test: CT ABD & PELVIS W/O CONTRAST REASON FOR EXAMINATION: vomiting; Clinical: Abdominal pain history of malignancy.; ; Comparison: 10/03/2016.; ; Findings:; The liver demonstrates diffuse, marked metastatic disease which is considerably; increased from prior examination. Moderate ascites along with retroperitoneal,; mesenteric, and upper abdominal adenopathy is also increased and again consistent; with metastatic disease. Fluid and soft tissue in a supraumbilical hernia is; identified which may represent small nodular soft tissue metastatic deposits; which is also increased from prior examination.; ; The patient is noted to be status post bladder resection for neoplasm with; neobladder creation and anastomoses to a small bowel which remain stable in; appearance.; ; Spleen, pancreas, gallbladder, bilateral adrenal glands and kidneys are; relatively normal for noncontrast evaluation. Bilateral perinephric stranding is; nonspecific and there is no evidence for hydroureteronephrosis. The enteric; system is without obstruction or acute inflammatory process and scattered colonic; diverticula noted without acute diverticulitis. No free air. Atherosclerotic; changes of the vasculature noted without aortic aneurysm. Skeletal structures; demonstrate diffuse degenerative changes as well as mixed sclerotic and lytic; lesions predominant noted in the visualized thoracic and lumbar vertebral bodies; as well as within the left bjorn sacrum which are increased from prior examination; and consistent with osseous metastatic disease. The lung bases demonstrate; chronic changes with bibasilar atelectasis and evidence for old healed left rib; fracture.; ; Impression:; 1. Increasing hepatic metastatic disease, ascites, retroperitoneal, mesenteric; and upper abdominal adenopathy and osseous lesions all consistent with increasing; metastatic disease.; 2. Postsurgical changes related to bladder resection and recreation remains; stable and relatively normal. The kidneys are without hydroureteronephrosis.; 3. The small and large bowel are without obstruction or obvious acute; inflammatory process.; ; ; Signed by; Jose De Jesus Brody MD 11/15/2016 08:24 P; Outcome: 18:38 Decision to Hospitalize by Provider. 20:27 CT Study completed. [facility] 20:52 Discharge Assessment: patient administered narcotics - yes. Patient was admitted to the [facility] or transferred to another facility. 21:28 Admission hand-off: Report called to MILES De La Rosa. [facility] 21:31 The following High Risk Discharge criteria are identified: None. Admitted to ICU [facility] accompanied by nurse, accompanied by tech, family with patient, via stretcher, with oxygen, on monitor, with chart. Condition: stable. Property :Personal belongings accompany Pt. 21:43 Patient left the ED. [facility] Signatures: Dispatcher [employer] EDMS Saul Miller MD MD pc Murray, Denise, Oil Sprayer Unit deg Angelita Calabrese, RN RN Soraida Merida,RT RT ac1 Emma Nielson,RN RN jo3 Juan Goldberg, Reg Reg kf3 Sekou Mcbride RN RN ml6 Jenny Poole demEmma DaigleRN RN js13 Juana SandersonRN RN [facility] Cecilia ShepherdRN RN js15 Paulina Bañuelos, Reg Reg ks16 Sekou Mcbride RN ml6 Emma Nielson RN jo3 Corrections: (The following items were deleted from the chart) 16:27 16:24 Respiratory: Onset: The symptoms/episode began/occurred today, Airway via oral js13 airway Respiratory effort is even, unlabored, Respiratory pattern is regular, Breath sounds with rhonchi Breath sounds are diminished js13 18:42 18:33 FT4&TSH PANEL+LAB sent. ml6 EDWY Chart Complete MTDD
--- NOTE | 2016-11-17 22:44 | EDDOCDS ---
Physician Documentation [facility] Name: Martínez Abbasi Age: 55 yrs Sex: Male : 1960 Arrival Date: 11/15/2016 Time: 16:05 Bed 12 Private MD: Disposition: 11/15 18:36 Critical Care:. pc Disposition: 11/15/16 18:38 Hospitalization ordered by Fauzia Bustillo for Inpatient Admission. Preliminary diagnosis are Sepsis, unspecified organism, Hyperglycemia, unspecified, Acute kidney failure, Hypo-osmolality and hyponatremia, Malignant neoplasm of larynx. - Bed requested for M ICU. - Status is Inpatient Admission. mlc - Condition is Stable. - Problem is new. - Symptoms have improved. HPI: 16:36 This 55 yrs old Male presents to ER via Ambulance with complaints of pc Breathing Difficulty. 16:36 The history is obtained from the patient, EMS providers. He has a tracheostomy due to pc laryngeal Ca and he dislikes the inner cannula. For the second day in a row, he took out the cannula and became SOB with thick secretions after about 5 hours. He was unable to clear the Trach so EMS was called. He was suctioned and he expectorated a large thick mucous plug. He present no longer SOB. He is tachycardic but no longer is dyspneic. He denies any recent fevers. He was supposed to have gone to his ENT in [place] today, for Trach care and replacement but did not go because he felt too tired this morning. His appointment was rescheduled for tomorrow. Historical: - Allergies: no known allergies; - Home Meds: 1. Compazine 5 mg Oral tab Unknown 2. hydrocodone-acetaminophen 7.5-325 mg Oral tab up to 12 daily 3. morphine 60 mg Oral CERP 1 cap 2 times per day 4. ondansetron HCl 4 mg Oral tab every 4 hours as needed 5. prochlorperazine maleate 10 mg Oral tab every 6 hours as needed - PMHx: Bladder Cancer; laryngeal cancer; - PSHx: Tracheostomy; Bladder scraping X2; Bladder removed and reconstructed from Large intestine; - The history from nurses notes was reviewed: and I agree with what is documented. - Social history: Smoking status: Patient states former smoker of tobacco. Patient is speech impaired. - Family history: Not pertinent. - : The pt / caregiver states he / she is not on anticoagulants. Home medication list is obtained from the patient. - Hospitalizations: : No recent hospitalization is reported. - Exposure Risk Screening:: None identified. - Immunization history:: All immunizations up-to-date. - Social history:: the patient is a non-smoker, the patient does not drink alcohol. ROS: 16:36 All systems are negative except as listed. pc Exam: 16:36 General Appearance: no acute distress, alert. pc 16:36 EENT: normal eye inspection, ears, nose and throat normal, pharynx normal, mucous membranes moist 16:36 Neck: Tracheostomy site clean and dry. 16:36 Respiratory: no respiratory distress, Breath sounds: wheezing, scattered. 16:36 CVS: regular rhythm, normal S1 and S2, no murmurs, strong peripheral pulses, normal capillary refill, the patient is tachycardic, at 134 bpm. 16:36 Abdomen: soft, non-tender, no organomegaly, normal bowel sounds. 16:36 Back: normal inspection. 16:36 Skin: skin color is normal, warm, dry. 16:36 Extremities: The extremities have a grossly normal appearance, are non-tender, without acute ROM abnormalities. 16:36 Neuro: oriented x 3, cranial nerves normal as tested, no motor deficits, no sensory deficits. Vital Signs: 16:19 BP 121 / 73; Pulse 139; Resp 20; Temp 99.1(TE); Pulse Ox 94% on 2 lpm NC; dem1 16:24 Weight 72.57 kg / 159.99 lbs; Height 5 ft. 5 in. (165.10 cm); dem1 17:06 BP 105 / 64 (auto/); js13 17:06 Pulse 128 MON; Resp 18; Pulse Ox 93% on 35% Venturi mask; js13 17:21 BP 105 / 68 (auto/); js13 17:21 Pulse 124 MON; Resp 18; Pulse Ox 94% on 35% Venturi mask; js13 17:35 Pulse 122 MON; Pulse Ox 96% ; mlc 17:36 BP 104 / 71 (auto/); mlc 17:51 Pulse 118 MON; Pulse Ox 97% ; mlc 17:51 BP 107 / 62 (auto/); mlc 18:05 Pulse 114 MON; Pulse Ox 98% ; mlc 18:06 BP 94 / 60 (auto/); mlc 18:20 Pulse 118 MON; Pulse Ox 98% ; mlc 18:21 BP 103 / 57 (auto/); mlc 18:35 Pulse 114 MON; Pulse Ox 98% ; mlc 18:36 BP 103 / 63 (auto/); mlc 18:52 Pulse 122 MON; Pulse Ox 97% ; mlc 18:53 BP 111 / 64 (auto/); mlc 19:05 Pulse 116 MON; Pulse Ox 95% ; mlc 19:06 BP 111 / 68 (auto/); mlc 19:21 BP 115 / 74 (auto/); mlc 19:21 Pulse 108 MON; Pulse Ox 98% ; mlc 19:35 Pulse 104 MON; Pulse Ox 98% ; mlc 19:36 BP 106 / 64 (auto/); mlc 19:50 Pulse 102 MON; Pulse Ox 99% ; mlc 19:51 BP 121 / 81 (auto/); mlc 20:25 Pulse 100 MON; Pulse Ox 99% ; mlc 20:26 Pulse 100 MON; Pulse Ox 99% ; mlc 20:27 BP 104 / 61 (auto/); mlc 20:35 Pulse 98 MON; Pulse Ox 99% ; mlc 20:36 BP 107 / 65 (auto/); mlc 20:49 Pulse 96 MON; Pulse Ox 100% ; mlc 20:50 Pulse 96 MON; Pulse Ox 100% ; mlc 20:51 BP 110 / 61 (auto/); mlc 21:05 Pulse 100 MON; Resp 20; Pulse Ox 99% ; Pain 6/10; mlc 21:06 BP 113 / 69 (auto/); mlc 21:31 Pulse 94 MON; Resp 18; Temp 96.5; Pulse Ox 99% ; Pain 6/10; mlc 21:32 BP 114 / 55 (auto/); mlc 16:24 Body Mass Index 26.62 (72.57 kg, 165.10 cm) dem1 MDM: 16:35 heparin 100units/mL flush (infusaport) 5 ml IVP once; flush first with 10mL of NS pc followed by heparin ordered. 16:35 Access Infusaport ordered. pc 16:35 Financial registration complete. kf3 16:36 CBC with Diff Ordered. EDMS 16:36 MED Profile Ordered. EDMS 16:36 Differential Diagnosis: Tracheostomy plugging; tachycardia. Plan: labs, imaging. pc 16:37 Chest, 2 View (pa\E\lat) Ordered. EDMS 16:50 Test interpretation: X-RAY - interpreted by Radiologist and personally reviewed, 2 view pc chest, no acute disease. 17:43 DIFFERENTIAL NO CHARGE Ordered. EDMS 17:43 PLATELET ESTIMATE Ordered. EDMS 17:54 Undo -Financial registration. ks16 17:55 [facility] Payment Agreement was scanned into [employer] and attached to record. ks16 17:55 CBC with Diff Reviewed. pc 17:55 MED Profile Reviewed. pc 17:55 PLATELET ESTIMATE Reviewed. pc 17:55 Chest, 2 View (pa\E\lat) Reviewed. pc 17:56 Financial registration complete. kf3 17:57 -Blood Culture (Adults Only), peripheral from different site, or from device/port/PICC pc etc. if present ordered. 17:57 NS 0.9% 1000 ml IV at bolus once ordered. pc 17:57 Leno Sewer/Pulse Ox/q 30 min VS ordered. pc 17:58 -Blood Culture Ordered. EDMS 17:58 -Blood Culture (Adults Only), peripheral from different site, or from device/port/PICC deg etc. if present complete. 17:58 Lactic Acid (Gabriel tube on ice) Ordered. EDMS 17:58 Venous Blood Gas (large pea green tube on ice) Ordered. EDMS 17:58 ECG WITH READING ER PHYS+CARDIAG ordered. EDMS 17:59 BLOOD CULTURES Ordered. EDMS 18:03 Osmolality, Serum Ordered. EDMS 18:03 Osmolality,Urine Ordered. EDMS 18:03 Urine Random,Creatinine Ordered. EDMS 18:03 Urine Random,Sodium Ordered. EDMS 18:05 Insulin Regular Human 10 units IVP once ordered. pc 18:05 Calcium Chloride 1 grams IVP once ordered. pc 18:06 BED REQUEST+ADM ordered. EDMS 18:20 [facility] Payment Agreement was scanned into [employer] and attached to record. kf3 18:28 NS 0.9% (Sepsis- hypotension or lactate >4mmol/L, 30ml/kg) 2200 ml IV at bolus once; pc Give in 500mL aliquots, assess for rales after each, inform provider ordered. 18:28 Call Respiratory ordered. pc 18:28 Leno Sewer/Pulse Ox/q 15 min VS ordered. pc 18:28 Intake and Output Hourly ordered. pc 18:28 Cefepime 2 grams IVPB at 100 mL/hr once over 30 mins; dilute in 50mL of NS or D5W pc ordered. 18:28 -Arterial Blood Gas Ordered. EDMS 18:29 Amylase Ordered. EDMS 18:29 C Reactive Protein Ordered. EDMS 18:29 Liver Profile Ordered. EDMS 18:29 PT/INR Ordered. EDMS 18:29 PTT Ordered. EDMS 18:29 Urinalysis Ordered. EDMS 18:29 Urine Culture Ordered. EDMS 18:29 Type & Screen Ordered. EDMS 18:31 Call Respiratory complete. ml6 18:36 Data reviewed: old medical records, vital signs, nurses notes, EKG(s), lab test pc results, all radiology studies and available results. Test interpretation: EKG LAB - all labs as ordered have been reviewed, interpreted and considered in the overall management of the clinical presentation;. 18:36 The patient has been re-examined and re-evaluated. The patient's symptoms have markedly pc improved after treatment. Physician consultation: Dr. Fauzia Bustillo regarding admission. Disposition: The historical points, examination findings, and any diagnostic results supporting the provided diagnosis, were discussed with the patient or legal guardian. The need for further work-up and/or treatment in the hospital was explained. 18:44 FT4&TSH PANEL Ordered. EDMS 18:47 BASIC METABOLIC PROFILE Ordered. EDMS 19:30 Insulin Regular Human Infusion (0.1units/kg/hr) 8 units/hr IV at calculated rate Per cs11 protocol ordered. 19:30 Accucheck hourly ordered. cs11 19:48 CBC WITH DIFFERENTIAL Ordered. EDMS 19:48 COMPLETE COMPHRENSIVE METABOLI Ordered. EDMS 19:48 MAGNESIUM LEVEL Ordered. EDMS 19:50 Admission / Observation Status ordered. EDMS 19:50 CT ABD & PELVIS W/O CONTRAST Ordered. EDMS 20:25 Admission / Observation Status ordered. EDMS 20:27 CLEAR LIQUIDS DIET ordered. EDMS 20:40 morphine 4 mg IVP once ordered. js15 EC:36 Rate is 115 beats/min. Rhythm is regular, Sinus tachycardia. QRS [place] is Normal. [place] pc interval is normal. QRS interval is normal. QT interval is normal. No Q waves. T waves are Normal. No ST changes noted. Clinical impression: Sinus tachycardia and Incomplete RBBB. No change from previous ECG in Jan, 2016. Point of Care Testing: Blood Glucose: 19:24 Blood Glucose: High; mlc 20:51 Blood Glucose: High; mlc 21:31 Blood Glucose: High; mlc Ranges: Administered Medications: 17:09 Drug: heparin 100units/mL flush (infusaport) 5 ml [heparin flush (porcine) 100 unit/mL js13 in 0.9 % sodium chloride IV kit (5 mL)] Route: IVP; Site: Implantable Access Device; 18:03 Drug: NS 0.9% 1000 ml [sodium chloride 0.9 % intravenous solution] Route: IV; Rate: js13 bolus; Site: Implantable Access Device; 20:48 Follow up: IV Status: Completed infusion mlc 18:16 Drug: Insulin Regular Human 10 units [insulin regular human 100 unit/mL injection js13 solution (0.1 mL)] {Co-Signature: ml6 (Sekou Mcbride RN).} Route: IVP; Site: Implantable Access Device; 18:17 Drug: Calcium Chloride 1 grams [calcium chloride 100 mg/mL (10 %) intravenous syringe js13 (10 mL)] {Co-Signature: ml6 (Sekou Mcbride RN).} Route: IVP; Site: Implantable Access Device; 19:09 Drug: Cefepime 2 grams [cefepime 2 gram solution for injection] Route: IVPB; Rate: 100 ml6 mL/hr; Infused Over: 30 mins; Site: Implantable Access Device; 19:29 Follow up: IV Status: Completed infusion mlc 19:53 Drug: Insulin Regular Human Infusion (0.1units/kg/hr) 8 units/hr [insulin regular human mlc 100 unit/mL injection solution] {Co-Signature: jo3 (Emma Nielson RN).} Route: IV; Rate: calculated rate; Site: left antecubital; 20:39 Drug: morphine 4 mg [morphine 4 mg/mL intravenous cartridge (1 mL)] Route: IVP; Site: js15 left upper arm; 21:08 Follow up: Response: Pain is decreased mlc 20:53 Drug: NS 0.9% (Sepsis- hypotension or lactate >4mmol/L, 30ml/kg) 2200 ml [sodium mlc chloride 0.9 % intravenous solution] Route: IV; Rate: bolus; Site: Implantable Access Device; Critical Care Time: 18:36 Critical care time: Bedside Care: 25 minutes, Consultation: 15 minutes. Total time: 40 pc minutes Signatures: Dispatcher [employer] EDMS Saul Miller MD MD pc Murray, Denise, Operations Expert Unit deg Emily, Ed, FLAME CUTTING MACHINE OPERATOR FLAME CUTTING MACHINE OPERATOR kb5 Juan Goldberg, Reg Reg kf3 Sekou Mcbride, RN RN ml6 Emma Hicks,RN RN js13 Reese Root, DO DO cs11 Juana Sanderson,RN RN mlc Cecilia Shepherd,RN RN js15 Paulina Bañuelos, Reg Reg ks16 Sekou Mcbride RN ml6 Emma Nielson RN jo3 The chart was reviewed and I authenticate all verbal orders and agree with the evaluation and treatment provided.Corrections: (The following items were deleted from the chart) 18:42 18:03 FT4&TSH PANEL+LAB ordered. EDMS EDMS 18:47 18:30 BASIC METABOLIC PROFILE ordered. EDMS EDMS 19:53 19:48 LACTIC ACID LEVEL, LACTATE ordered. EDMS EDMS Attachments: 18:20 [facility] Payment Agreement kf3 [facility] Complete [facility]
--- NOTE | 2016-11-17 22:44 | EDDOCDS ---
Physician Documentation [facility] Name: Martínez Abbasi Age: 55 yrs Sex: Male : 1960 Arrival Date: 11/15/2016 Time: 16:05 Bed 12 Private MD: Disposition: 11/15 18:36 Critical Care:. pc Disposition: 11/15/16 18:38 Hospitalization ordered by Fauzia Bustillo for Inpatient Admission. Preliminary diagnosis are Sepsis, unspecified organism, Hyperglycemia, unspecified, Acute kidney failure, Hypo-osmolality and hyponatremia, Malignant neoplasm of larynx. - Bed requested for M ICU. - Status is Inpatient Admission. mlc - Condition is Stable. - Problem is new. - Symptoms have improved. HPI: 16:36 This 55 yrs old Male presents to ER via Ambulance with complaints of pc Breathing Difficulty. 16:36 The history is obtained from the patient, EMS providers. He has a tracheostomy due to pc laryngeal Ca and he dislikes the inner cannula. For the second day in a row, he took out the cannula and became SOB with thick secretions after about 5 hours. He was unable to clear the Trach so EMS was called. He was suctioned and he expectorated a large thick mucous plug. He present no longer SOB. He is tachycardic but no longer is dyspneic. He denies any recent fevers. He was supposed to have gone to his ENT in [place] today, for Trach care and replacement but did not go because he felt too tired this morning. His appointment was rescheduled for tomorrow. Historical: - Allergies: no known allergies; - Home Meds: 1. Compazine 5 mg Oral tab Unknown 2. hydrocodone-acetaminophen 7.5-325 mg Oral tab up to 12 daily 3. morphine 60 mg Oral CERP 1 cap 2 times per day 4. ondansetron HCl 4 mg Oral tab every 4 hours as needed 5. prochlorperazine maleate 10 mg Oral tab every 6 hours as needed - PMHx: Bladder Cancer; laryngeal cancer; - PSHx: Tracheostomy; Bladder scraping X2; Bladder removed and reconstructed from Large intestine; - The history from nurses notes was reviewed: and I agree with what is documented. - Social history: Smoking status: Patient states former smoker of tobacco. Patient is speech impaired. - Family history: Not pertinent. - : The pt / caregiver states he / she is not on anticoagulants. Home medication list is obtained from the patient. - Hospitalizations: : No recent hospitalization is reported. - Exposure Risk Screening:: None identified. - Immunization history:: All immunizations up-to-date. - Social history:: the patient is a non-smoker, the patient does not drink alcohol. ROS: 16:36 All systems are negative except as listed. pc Exam: 16:36 General Appearance: no acute distress, alert. pc 16:36 EENT: normal eye inspection, ears, nose and throat normal, pharynx normal, mucous membranes moist 16:36 Neck: Tracheostomy site clean and dry. 16:36 Respiratory: no respiratory distress, Breath sounds: wheezing, scattered. 16:36 CVS: regular rhythm, normal S1 and S2, no murmurs, strong peripheral pulses, normal capillary refill, the patient is tachycardic, at 134 bpm. 16:36 Abdomen: soft, non-tender, no organomegaly, normal bowel sounds. 16:36 Back: normal inspection. 16:36 Skin: skin color is normal, warm, dry. 16:36 Extremities: The extremities have a grossly normal appearance, are non-tender, without acute ROM abnormalities. 16:36 Neuro: oriented x 3, cranial nerves normal as tested, no motor deficits, no sensory deficits. Vital Signs: 16:19 BP 121 / 73; Pulse 139; Resp 20; Temp 99.1(TE); Pulse Ox 94% on 2 lpm NC; dem1 16:24 Weight 72.57 kg / 159.99 lbs; Height 5 ft. 5 in. (165.10 cm); dem1 17:06 BP 105 / 64 (auto/); js13 17:06 Pulse 128 MON; Resp 18; Pulse Ox 93% on 35% Venturi mask; js13 17:21 BP 105 / 68 (auto/); js13 17:21 Pulse 124 MON; Resp 18; Pulse Ox 94% on 35% Venturi mask; js13 17:35 Pulse 122 MON; Pulse Ox 96% ; mlc 17:36 BP 104 / 71 (auto/); mlc 17:51 Pulse 118 MON; Pulse Ox 97% ; mlc 17:51 BP 107 / 62 (auto/); mlc 18:05 Pulse 114 MON; Pulse Ox 98% ; mlc 18:06 BP 94 / 60 (auto/); mlc 18:20 Pulse 118 MON; Pulse Ox 98% ; mlc 18:21 BP 103 / 57 (auto/); mlc 18:35 Pulse 114 MON; Pulse Ox 98% ; mlc 18:36 BP 103 / 63 (auto/); mlc 18:52 Pulse 122 MON; Pulse Ox 97% ; mlc 18:53 BP 111 / 64 (auto/); mlc 19:05 Pulse 116 MON; Pulse Ox 95% ; mlc 19:06 BP 111 / 68 (auto/); mlc 19:21 BP 115 / 74 (auto/); mlc 19:21 Pulse 108 MON; Pulse Ox 98% ; mlc 19:35 Pulse 104 MON; Pulse Ox 98% ; mlc 19:36 BP 106 / 64 (auto/); mlc 19:50 Pulse 102 MON; Pulse Ox 99% ; mlc 19:51 BP 121 / 81 (auto/); mlc 20:25 Pulse 100 MON; Pulse Ox 99% ; mlc 20:26 Pulse 100 MON; Pulse Ox 99% ; mlc 20:27 BP 104 / 61 (auto/); mlc 20:35 Pulse 98 MON; Pulse Ox 99% ; mlc 20:36 BP 107 / 65 (auto/); mlc 20:49 Pulse 96 MON; Pulse Ox 100% ; mlc 20:50 Pulse 96 MON; Pulse Ox 100% ; mlc 20:51 BP 110 / 61 (auto/); mlc 21:05 Pulse 100 MON; Resp 20; Pulse Ox 99% ; Pain 6/10; mlc 21:06 BP 113 / 69 (auto/); mlc 21:31 Pulse 94 MON; Resp 18; Temp 96.5; Pulse Ox 99% ; Pain 6/10; mlc 21:32 BP 114 / 55 (auto/); mlc 16:24 Body Mass Index 26.62 (72.57 kg, 165.10 cm) dem1 MDM: 16:35 heparin 100units/mL flush (infusaport) 5 ml IVP once; flush first with 10mL of NS pc followed by heparin ordered. 16:35 Access Infusaport ordered. pc 16:35 Financial registration complete. kf3 16:36 CBC with Diff Ordered. EDMS 16:36 MED Profile Ordered. EDMS 16:36 Differential Diagnosis: Tracheostomy plugging; tachycardia. Plan: labs, imaging. pc 16:37 Chest, 2 View (pa\E\lat) Ordered. EDMS 16:50 Test interpretation: X-RAY - interpreted by Radiologist and personally reviewed, 2 view pc chest, no acute disease. 17:43 DIFFERENTIAL NO CHARGE Ordered. EDMS 17:43 PLATELET ESTIMATE Ordered. EDMS 17:54 Undo -Financial registration. ks16 17:55 [facility] Payment Agreement was scanned into [employer] and attached to record. ks16 17:55 CBC with Diff Reviewed. pc 17:55 MED Profile Reviewed. pc 17:55 PLATELET ESTIMATE Reviewed. pc 17:55 Chest, 2 View (pa\E\lat) Reviewed. pc 17:56 Financial registration complete. kf3 17:57 -Blood Culture (Adults Only), peripheral from different site, or from device/port/PICC pc etc. if present ordered. 17:57 NS 0.9% 1000 ml IV at bolus once ordered. pc 17:57 Director Software/Pulse Ox/q 30 min VS ordered. pc 17:58 -Blood Culture Ordered. EDMS 17:58 -Blood Culture (Adults Only), peripheral from different site, or from device/port/PICC deg etc. if present complete. 17:58 Lactic Acid (Gabriel tube on ice) Ordered. EDMS 17:58 Venous Blood Gas (large pea green tube on ice) Ordered. EDMS 17:58 ECG WITH READING ER PHYS+CARDIAG ordered. EDMS 17:59 BLOOD CULTURES Ordered. EDMS 18:03 Osmolality, Serum Ordered. EDMS 18:03 Osmolality,Urine Ordered. EDMS 18:03 Urine Random,Creatinine Ordered. EDMS 18:03 Urine Random,Sodium Ordered. EDMS 18:05 Insulin Regular Human 10 units IVP once ordered. pc 18:05 Calcium Chloride 1 grams IVP once ordered. pc 18:06 BED REQUEST+ADM ordered. EDMS 18:20 [facility] Payment Agreement was scanned into [employer] and attached to record. kf3 18:28 NS 0.9% (Sepsis- hypotension or lactate >4mmol/L, 30ml/kg) 2200 ml IV at bolus once; pc Give in 500mL aliquots, assess for rales after each, inform provider ordered. 18:28 Call Respiratory ordered. pc 18:28 Director Software/Pulse Ox/q 15 min VS ordered. pc 18:28 Intake and Output Hourly ordered. pc 18:28 Cefepime 2 grams IVPB at 100 mL/hr once over 30 mins; dilute in 50mL of NS or D5W pc ordered. 18:28 -Arterial Blood Gas Ordered. EDMS 18:29 Amylase Ordered. EDMS 18:29 C Reactive Protein Ordered. EDMS 18:29 Liver Profile Ordered. EDMS 18:29 PT/INR Ordered. EDMS 18:29 PTT Ordered. EDMS 18:29 Urinalysis Ordered. EDMS 18:29 Urine Culture Ordered. EDMS 18:29 Type & Screen Ordered. EDMS 18:31 Call Respiratory complete. ml6 18:36 Data reviewed: old medical records, vital signs, nurses notes, EKG(s), lab test pc results, all radiology studies and available results. Test interpretation: EKG LAB - all labs as ordered have been reviewed, interpreted and considered in the overall management of the clinical presentation;. 18:36 The patient has been re-examined and re-evaluated. The patient's symptoms have markedly pc improved after treatment. Physician consultation: Dr. Fauzia Bustillo regarding admission. Disposition: The historical points, examination findings, and any diagnostic results supporting the provided diagnosis, were discussed with the patient or legal guardian. The need for further work-up and/or treatment in the hospital was explained. 18:44 FT4&TSH PANEL Ordered. EDMS 18:47 BASIC METABOLIC PROFILE Ordered. EDMS 19:30 Insulin Regular Human Infusion (0.1units/kg/hr) 8 units/hr IV at calculated rate Per cs11 protocol ordered. 19:30 Accucheck hourly ordered. cs11 19:48 CBC WITH DIFFERENTIAL Ordered. EDMS 19:48 COMPLETE COMPHRENSIVE METABOLI Ordered. EDMS 19:48 MAGNESIUM LEVEL Ordered. EDMS 19:50 Admission / Observation Status ordered. EDMS 19:50 CT ABD & PELVIS W/O CONTRAST Ordered. EDMS 20:25 Admission / Observation Status ordered. EDMS 20:27 CLEAR LIQUIDS DIET ordered. EDMS 20:40 morphine 4 mg IVP once ordered. js15 EC:36 Rate is 115 beats/min. Rhythm is regular, Sinus tachycardia. QRS Orrick is Normal. HI pc interval is normal. QRS interval is normal. QT interval is normal. No Q waves. T waves are Normal. No ST changes noted. Clinical impression: Sinus tachycardia and Incomplete RBBB. No change from previous ECG in Jan, 2016. Point of Care Testing: Blood Glucose: 19:24 Blood Glucose: High; mlc 20:51 Blood Glucose: High; mlc 21:31 Blood Glucose: High; mlc Ranges: Administered Medications: 17:09 Drug: heparin 100units/mL flush (infusaport) 5 ml [heparin flush (porcine) 100 unit/mL js13 in 0.9 % sodium chloride IV kit (5 mL)] Route: IVP; Site: Implantable Access Device; 18:03 Drug: NS 0.9% 1000 ml [sodium chloride 0.9 % intravenous solution] Route: IV; Rate: js13 bolus; Site: Implantable Access Device; 20:48 Follow up: IV Status: Completed infusion mlc 18:16 Drug: Insulin Regular Human 10 units [insulin regular human 100 unit/mL injection js13 solution (0.1 mL)] {Co-Signature: ml6 (Sekou Mcbride RN).} Route: IVP; Site: Implantable Access Device; 18:17 Drug: Calcium Chloride 1 grams [calcium chloride 100 mg/mL (10 %) intravenous syringe js13 (10 mL)] {Co-Signature: ml6 (Sekou Mcbride RN).} Route: IVP; Site: Implantable Access Device; 19:09 Drug: Cefepime 2 grams [cefepime 2 gram solution for injection] Route: IVPB; Rate: 100 ml6 mL/hr; Infused Over: 30 mins; Site: Implantable Access Device; 19:29 Follow up: IV Status: Completed infusion mlc 19:53 Drug: Insulin Regular Human Infusion (0.1units/kg/hr) 8 units/hr [insulin regular human mlc 100 unit/mL injection solution] {Co-Signature: jo3 (Emma Nielson RN).} Route: IV; Rate: calculated rate; Site: left antecubital; 20:39 Drug: morphine 4 mg [morphine 4 mg/mL intravenous cartridge (1 mL)] Route: IVP; Site: js15 left upper arm; 21:08 Follow up: Response: Pain is decreased mlc 20:53 Drug: NS 0.9% (Sepsis- hypotension or lactate >4mmol/L, 30ml/kg) 2200 ml [sodium mlc chloride 0.9 % intravenous solution] Route: IV; Rate: bolus; Site: Implantable Access Device; Critical Care Time: 18:36 Critical care time: Bedside Care: 25 minutes, Consultation: 15 minutes. Total time: 40 pc minutes Signatures: Dispatcher [employer] EDMS Saul Miller MD MD pc Murray, Denise, Core Mounter Unit deg Emily, De, NURSING ASSOCIATE NURSING ASSOCIATE kb5 Juan Goldberg, Reg Reg kf3 Sekou Mcbride, RN RN ml6 Emma Hicks,RN RN js13 Reese Root, DO DO cs11 Juana Sanderson,RN RN mlc Cecilia Shepherd,RN RN js15 Paulina Bañuelos, Reg Reg ks16 Sekou Mcbride RN ml6 Emma Nielson RN jo3 The chart was reviewed and I authenticate all verbal orders and agree with the evaluation and treatment provided.Corrections: (The following items were deleted from the chart) 18:42 18:03 FT4&TSH PANEL+LAB ordered. EDMS EDMS 18:47 18:30 BASIC METABOLIC PROFILE ordered. EDMS EDMS 19:53 19:48 LACTIC ACID LEVEL, LACTATE ordered. EDMS EDMS Attachments: 18:20 [facility] [place] kf3 Chart Complete [facility]
[2016-11-18 04:00] VITALS: BP 116/65
[2016-11-18] MEDS: SODIUM CHLORIDE 0.9% INJ 10 ML SYR IV PRN ×3 (05:04→12:26)
[2016-11-18] MEDS: MORPHINE 4 MG/ML 1ML SYRINGE IV PRN ×4 (05:18→18:04)
[2016-11-18 05:26] LABS: BASO % 0.1 % (0.0-1.0); EOS # 0.2 K/mm3 (0.0-0.50); EOS % 1.1 % (0.0-3.0); LARGE UNSTAINED CELL # 0.1 K/mm3 (0.0-0.4); LARGE UNSTAINED CELL % 0.7 % (0.0-4.0); LYMPH # 0.6 K/mm3 (1.5-4.5); LYMPH % 3.2 % (24.0-44.0); MEAN CORPUSCULAR HEMOGLOBIN 28.4 pg (27.0-33.0); MEAN CORPUSCULAR HGB CONC 31.8 g/dl (32.0-36.5); MEAN CORPUSCULAR VOLUME 89.1 fl (80.0-96.0); MONO # 0.9 K/mm3 (0.0-0.8); MONO % 5.1 % (0.0-5.0); NEUTROPHILS # 15.6 K/mm3 (1.8-7.7); NEUTROPHILS % 89.8 % (36.0-66.0); PLATELET COUNT, AUTOMATED 115 k/mm3 (150-450); RED CELL DISTRIBUTION WIDTH 17.3 % (11.5-14.5); WHITE BLOOD COUNT 17.4 K/mm3 (4.0-10.0)
[2016-11-18 06:09] LABS: ALBUMIN 1.4 GM/DL (3.2-5.2); ALBUMIN/GLOBULIN RATIO 0.36 (1.00-1.93); ALKALINE PHOSPHATASE 493 U/L (45-117); ALT/SGPT 46 U/L (12-78); ANION GAP 11 MEQ/L (8-16); AST/SGOT 54 U/L (15-37); BILIRUBIN,TOTAL 0.6 MG/DL (0.2-1.0); BLOOD UREA NITROGEN 29 MG/DL (7-18); CALCIUM LEVEL 7.2 MG/DL (8.5-10.1); CARBON DIOXIDE LEVEL 26 MEQ/L (21-32); CHLORIDE LEVEL 102 MEQ/L (98-107); CREATININE FOR GFR 1.02 MG/DL (0.70-1.30); GLOMERULAR FILTRATION RATE > 60.0 (>56); GLUCOSE, FASTING 123 MG/DL (70-105); MAGNESIUM LEVEL 1.8 MG/DL (1.8-2.4); POTASSIUM SERUM 3.9 MEQ/L (3.5-5.1); SODIUM LEVEL 139 MEQ/L (136-145); TOTAL PROTEIN 5.3 GM/DL (6.4-8.2)
[2016-11-18] MEDS: IPRATROPIUM 0.5MG/ALBUTEROL 2.5MG INH SOL UD 3ML (DUONEB)(J7620) NEB SCH ×4 (07:33→20:09)
[2016-11-18 08:00] VITALS: BP 113/58
[2016-11-18] MEDS: SODIUM CHLORIDE 0.9% INJ 10 ML SYR IV SCH (08:03)
[2016-11-18] MEDS: CHLORHEXIDINE GLUCONATE 0.12 % 15ML UDC (PERIDEX ORAL RINSE) MT SCH ×2 (08:03→21:59)
[2016-11-18] MEDS: HumaLOG INSULIN (NovoLOG) PER UNIT SC SCH ×4 (08:03→20:59)
[2016-11-18] MEDS: NICOTINE 21MG/24HR 1 EA TRANSDERMAL TD SCH (08:04)
[2016-11-18] MEDS: ENOXAPARIN 30 MG/0.3 ML SYR (J1650) SC SCH (08:05)
[2016-11-18] MEDS: MORPHINE 30 MG SA TAB PO SCH ×2 (08:05→22:01)
[2016-11-18] MEDS: PANTOPRAZOLE 40MG TAB (PROTONIX) PO SCH (08:05)
[2016-11-18] MEDS: VANCOMYCIN HCL 1,000 MG, VIAL MATE ADAPTER 1 EACH in D5W 250 ML IV SCH ×2 (11:10→22:02)
--- NOTE | 2016-11-18 12:02 | IPNPDOC ---
Subjective Date Seen The patient was seen on 11/18/16. Subjective Chief Complaint/HPI Pt c/o poor pain control with reduced dose of MS Contin today. Pain mostly abdominal. BM yesterday. Would like us to reach out to his cancer doctors [place]. General: Denies: Fatigue Constitutional: Denies: Chills, Fever ENT: Denies: Head Aches Pulmonary: Denies: Cough, Dyspnea Cardiovascular: Denies: Chest Pain, Palpitations Gastrointestinal: Denies: Diarrhea, Nausea, Vomiting Neurological: Denies: Weakness Psych: Reports: Mood Normal Objective Physical Examination General Exam: Positive: Alert, No Acute Distress ENT Exam: Positive: Mucous membr. moist/pink Chest Exam: Positive: Diminished, Other (bibasilar crackles) Heart Exam: Positive: Normal S1, Rate Normal, Regular Rhythm Abdomen Exam: Positive: Normal bowel sounds, Other (hepatomegaly, abd slightly firm, distended, mildly diffusely tender to palpation) Extremity Exam: Negative: Edema Psych Exam: Positive: Mental status NL Assessment /Plan Assessment Family Medicine Attending Note: I saw and examined Mr. Abbasi, discussed with CARO German. Agree with their note as documented. Mr. Abbasi reports in his pain is much worse controlled today on the 30 mg of MS Contin. He is very interested in going back all the way to the 60 mg that he was on per his oncologist. I discussed the options of going to 45 mg with him, since his this is what we had already planned. However, he is feeling bad enough today that he requests to go directly back to the 60 mg. He is also complaining of increased constipation. This is not unusual because he is on chronic opioids. He does not have much in the way of regular bowel regimen at this point in time. I started him on MiraLAX daily. I added Senokot S every 36 hours without bowel movement and a Fleets enema every 3 days without bowel movement. We'll see how he does with this. 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 Urine and blood cultures Neg 11/17 - Cefepime/Vaco D2, WBC continues to trend down, afebrile. Lactic acid normalized. Blood cultures pending, urine culture pending. 11/16 Pt started on Cefepime/Vanco on admission D1, WBC down slightly [place] [address] to [address], tmax 100.4, this morning. Recheck lactic acid. Urine and blood cultures pending. (2) ARF (acute renal failure) Status: Acute Discussed With: Nurse, Patient Problem Specific Plan: Monitor Clinically, Repeat Labs Problem Text: 11/18- Scr normalized, d/c IVF. 11/17 - Scr down to 1.7, cont with IVF 11/16 Scr 2.41, monitor closely, on IVF (3) Malignant tumor of larynx Status: Chronic Response to Treatment: Progressing Problem Specific Plan: Monitor Clinically Problem Text: last dose of Chemo 11/02 per pt. 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 Add Levemir 10 units. A1c 11/16/16 8.9% (6) Metastases to the liver Status: Chronic Response to Treatment: Progressing Problem Text: AST 2873, ALT 105, known liver mets, INR 1.22 (7) Anemia Status: Acute Response to Treatment: Worse Discussed With: Nurse, Patient Problem Specific Plan: Monitor Clinically, Repeat Labs Problem Text: Will transfuse 2 units pRBC, consent obtained, check work up. Plan/VTE VTE Prophylaxis Ordered?: Yes Plan/Urinary Catheter Reason for insertion/continuin: Acute obstruct/retention Plan Anticipated Discharge: Hospice (anticipated discharge on 11/19) Advance Directives: D[facility] VS[facility] Sign[facility]/I&O Vital Signs Date Time Temp Pulse Resp B/P Pulse Ox O2 Delivery O2 Flow Rate FiO2 11/18/16 10:49 16 11/18/16 08:00 Trach Collar 35 11/18/16 08:00 98.4 92 113/58 92 11/17/16 20:00 8.0 I&O- Last 24 Hours up to 6 AM 11/18/16 06:00 Intake Total 2892 ml Output Total 2935 ml Balance -43 ml Laboratory Data 24H LABS Laboratory Tests 2 11/17/16 16:22: Bedside Glucose (Misc Panel) 188H 11/17/16 17:00: Random Vancomycin Level 9.6 11/17/16 19:07: Bedside Glucose (Misc Panel) 292H 11/18/16 05:05: Blood Urea Nitrogen 29H, Creatinine 1.02, Sodium Level 139, Potassium Level 3.9 , Chloride Level 102, Carbon Dioxide Level 26, Calcium Level 7.2L, Aspartate Amino Transf (AST/SGOT) 54H, Alanine Aminotransferase (ALT/SGPT) 46, Alkaline Phosphatase 493H, Total Bilirubin 0.6, Total Protein 5.3L, Albumin 1.4L, Albumin /Globulin Ratio 0.36L, Anion Gap 11, White Blood Count 17.4H, Red Blood Count 3.18L, Hemoglobin 9.0L, Hematocrit 28.3L, Mean Corpuscular Volume 89.1, Mean Corpuscular Hemoglobin 28.4, Mean Corpuscular Hemoglobin Concent 31.8L, Red Cell Distribution Width 17.3H, Platelet Count 115L, Neutrophils (%) (Auto) 89.8H , Lymphocytes (%) (Auto) 3.2L, Monocytes (%) (Auto) 5.1H, Eosinophils (%) (Auto ) 1.1, Basophils (%) (Auto) 0.1, Neutrophils # (Auto) 15.6H, Lymphocytes # (Auto ) 0.6L, Monocytes # (Auto) 0.9H, Eosinophils # (Auto) 0.2, Basophils # (Auto) 0.0, Glomerular Filtration Rate > 60.0, Large Unclassified Cells # 0.1, Large Unclassified Cells % 0.7, Magnesium Level 1.8 CBC/BMP Laboratory Tests 11/18/16 05:05 Calcium Level 7.2 L, Aspartate Amino Transf (AST/SGOT) 54 H, Alanine Aminotransferase (ALT/SGPT) 46, Alkaline Phosphatase 493 H, Total Bilirubin 0.6 , Total Protein 5.3 L, Albumin 1.4 L, Red Blood Count 3.18 L, Mean Corpuscular Volume 89.1, Mean Corpuscular Hemoglobin 28.4, Mean Corpuscular Hemoglobin Concent 31.8 L, Red Cell Distribution Width 17.3 H, Neutrophils (%) (Auto) 89.8 H, Lymphocytes (%) (Auto) 3.2 L, Monocytes (%) (Auto) 5.1 H, Eosinophils (%) ( Auto) 1.1, Basophils (%) (Auto) 0.1, Neutrophils # (Auto) 15.6 H, Lymphocytes # (Auto) 0.6 L, Monocytes # (Auto) 0.9 H, Eosinophils # (Auto) 0.2, Basophils # ( Auto) 0.0 Microbiology Microbiology 11/15/16 Blood Culture - Preliminary, Resulted No Growth after 48 hours. All Specime... 11/15/16 Blood Culture - Preliminary, Resulted No Growth after 48 hours. All Specime... 11/17/16 Urine Culture, Received Pending 11/15/16 Urine Culture - Final, Complete SANDRA PARSON PA-C Nov 18, 2016 12:02 Bert Ortiz MD Nov 18, 2016 20:02
[2016-11-18] MEDS: MOM 30ML SUSPENSION UDC PO PRN (12:26)
[2016-11-18 14:00] VITALS: BP 134/77
[2016-11-18] MEDS: CEFEPIME HCL 1 GM in D5W MINI-BAG PLUS 50 ML IV SCH (18:04)
[2016-11-18] MEDS ORDERED: SENOKOT S TAB PO PRN (20:00)
[2016-11-18] MEDS ORDERED: FLEET ENEMA PR PRN (20:00)
[2016-11-18] MEDS ORDERED: MORPHINE 15 MG SA TAB PO SCH (21:00)
[2016-11-18 22:00] VITALS: BP 120/70
[2016-11-18] MEDS: LEVEMIR (INSULIN DETEMIR) 1 UNITS/0.01ML SC SCH (22:01)
[2016-11-19] MEDS: MORPHINE 4 MG/ML 1ML SYRINGE IV PRN ×2 (04:05→16:12)
[2016-11-19] MEDS: SODIUM CHLORIDE 0.9% INJ 10 ML SYR IV PRN ×2 (05:22→23:29)
[2016-11-19 05:44] LABS: BASO % 0.2 % (0.0-1.0); EOS # 0.2 K/mm3 (0.0-0.50); EOS % 1.2 % (0.0-3.0); LARGE UNSTAINED CELL # 0.2 K/mm3 (0.0-0.4); LARGE UNSTAINED CELL % 0.9 % (0.0-4.0); LYMPH # 0.4 K/mm3 (1.5-4.5); LYMPH % 2.6 % (24.0-44.0); MEAN CORPUSCULAR HEMOGLOBIN 28.8 pg (27.0-33.0); MEAN CORPUSCULAR HGB CONC 32.2 g/dl (32.0-36.5); MEAN CORPUSCULAR VOLUME 89.5 fl (80.0-96.0); MONO # 0.7 K/mm3 (0.0-0.8); MONO % 3.9 % (0.0-5.0); NEUTROPHILS # 15.4 K/mm3 (1.8-7.7); NEUTROPHILS % 91.1 % (36.0-66.0); PLATELET COUNT, AUTOMATED 120 k/mm3 (150-450); RED CELL DISTRIBUTION WIDTH 17.2 % (11.5-14.5); WHITE BLOOD COUNT 16.9 K/mm3 (4.0-10.0)
[2016-11-19 06:00] VITALS: BP 121/73
[2016-11-19 06:06] LABS: ALBUMIN 1.4 GM/DL (3.2-5.2); ALBUMIN/GLOBULIN RATIO 0.29 (1.00-1.93); ALKALINE PHOSPHATASE 392 U/L (45-117); ALT/SGPT 32 U/L (12-78); ANION GAP 9 MEQ/L (8-16); AST/SGOT 30 U/L (15-37); BILIRUBIN,TOTAL 0.5 MG/DL (0.2-1.0); BLOOD UREA NITROGEN 30 MG/DL (7-18); CALCIUM LEVEL 7.5 MG/DL (8.5-10.1); CARBON DIOXIDE LEVEL 27 MEQ/L (21-32); CHLORIDE LEVEL 100 MEQ/L (98-107); CREATININE FOR GFR 1.19 MG/DL (0.70-1.30); GLOMERULAR FILTRATION RATE > 60.0 (>56); GLUCOSE, FASTING 114 MG/DL (70-105); MAGNESIUM LEVEL 1.6 MG/DL (1.8-2.4); POTASSIUM SERUM 3.6 MEQ/L (3.5-5.1); SODIUM LEVEL 136 MEQ/L (136-145); TOTAL PROTEIN 6.2 GM/DL (6.4-8.2)
[2016-11-19] MEDS: IPRATROPIUM 0.5MG/ALBUTEROL 2.5MG INH SOL UD 3ML (DUONEB)(J7620) NEB SCH ×4 (07:18→20:31)
[2016-11-19] MEDS: HumaLOG INSULIN (NovoLOG) PER UNIT SC SCH ×4 (07:38→21:00)
[2016-11-19] MEDS: NICOTINE 21MG/24HR 1 EA TRANSDERMAL TD SCH (09:55)
[2016-11-19] MEDS: PANTOPRAZOLE 40MG TAB (PROTONIX) PO SCH (09:56)
[2016-11-19] MEDS: MIRALAX *UNIT DOSE* 17GM PACKET PO SCH (09:56)
[2016-11-19] MEDS: SODIUM CHLORIDE 0.9% INJ 10 ML SYR IV SCH (09:56)
[2016-11-19] MEDS: ENOXAPARIN 30 MG/0.3 ML SYR (J1650) SC SCH (09:56)
[2016-11-19] MEDS: MORPHINE 30 MG SA TAB PO SCH ×2 (09:58→21:03)
[2016-11-19] MEDS: CHLORHEXIDINE GLUCONATE 0.12 % 15ML UDC (PERIDEX ORAL RINSE) MT SCH ×3 (09:59→21:03)
[2016-11-19 11:14] LABS: VITAMIN B12 LEVEL > 2000 PG/ML (247-911)
[2016-11-19 11:17] LABS: FOLATE 4.9 NG/ML (>5.4)
[2016-11-19] MEDS: VANCOMYCIN HCL 1,000 MG, VIAL MATE ADAPTER 1 EACH in D5W 250 ML IV SCH ×2 (11:46→23:27)
--- NOTE | 2016-11-19 11:57 | IPNPDOC ---
Subjective Date Seen The patient was seen on 11/19/16. Subjective Chief Complaint/HPI The patient is a 55-year-old male admitted with a reason for visit of Hyperglycemia,Sepsis. Events since last encounter Pt states pain is better controlled today. Denies CP. States breathing is better. Constitutional: Denies: Chills, Fever Pulmonary: Reports: Dyspnea Cardiovascular: Denies: Chest Pain Gastrointestinal: Denies: Abdominal Pain, Nausea, Vomiting Objective Physical Examination General Exam: Positive: Alert, No Acute Distress ENT Exam: Positive: Mucous membr. moist/pink Chest Exam: Positive: Diminished, Other (bibasilar crackles) Heart Exam: Positive: Normal S1, Rate Normal, Regular Rhythm Abdomen Exam: Positive: Normal bowel sounds, Other (hepatomegaly, abd slightly firm, distended, mildly diffusely tender to palpation) Extremity Exam: Negative: Edema Psych Exam: Positive: Mental status NL Assessment /Plan Problems (1) Sepsis Status: Acute Response to Treatment: Stable Discussed With: Nurse, Patient Problem Specific Plan: Monitor Clinically, Repeat Labs Problem Text: 11/19 - D4 Cefepime/Vanco D4, Afebrile, WBC continues to trend down: 16.9 today (17.4 yesterday). Urine and blood cultures Neg 11/18 - D3 Cefepime/Vanco D3, Afebrile, WBC continues to trend down. Urine and blood cultures Neg 11/17 - Cefepime/Vaco D2, WBC continues to trend down, afebrile. Lactic acid normalized. Blood cultures pending, urine culture pending. 11/16 Pt started on Cefepime/Vanco on admission D1, WBC [place] [id number] to [id number], tmax 100.4, this morning. Recheck lactic acid. Urine and blood cultures pending. (2) ARF (acute renal failure) Status: Acute Discussed With: Nurse, Patient Problem Specific Plan: Monitor Clinically, Repeat Labs Problem Text: 11/19 - Creat 1.19. 11/18- Scr normalized, d/c IVF. 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 last dose of Chemo 2/10 per pt. 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 Add Levemir 10 units. A1c 11/16/16 8.9% (6) Metastases to the liver Status: Chronic Response to Treatment: Progressing Problem Text: 11/19 - AST 32, ALT 30. AST 283, ALT 105, known liver mets, INR 1.22 (7) Anemia Status: Acute Response to Treatment: Worse Discussed With: Nurse, Patient Problem Specific Plan: Monitor Clinically, Repeat Labs Problem Text: 11/19 - Hgb Stable. S/P 2 Units PRBCs on 11/17. Will transfuse 2 units pRBC, consent obtained, check work up. (8) Hypomagnesemia Status: Acute Problem Specific Plan: Monitor Clinically, Repeat Labs Problem Text: Mag 1.6. Give mag run. Plan/VTE VTE Prophylaxis Ordered?: Yes Plan/Urinary Catheter Reason for insertion/continuin: Acute obstruct/retention Plan Anticipated Discharge: Hospice (anticipated discharge on 11/19) Advance Directives: DNR Attending attestation: I saw and evaluated the patient, and agree with the plan of care as discussed and documented by Rudi Mac. Hospice to visit with patient 11/20/16. Discharge planning in process. Zafar Bustillo MD VS, I&O, 24H, [facility] Vital Signs/I&O Vital Signs Date Time Temp Pulse Resp B/P Pulse Ox O2 Delivery O2 Flow Rate FiO2 11/19/16 09:58 18 11/19/16 06:00 96.8 99 121/73 94 Room Air 11/18/16 08:00 35 11/17/16 20:00 8.0 I&O- Last 24 Hours up to 6 AM 11/19/16 06:00 Intake Total 1530 ml Output Total 2100 ml Balance -570 ml Laboratory Data 24H LABS Laboratory Tests 2 11/18/16 11:59: Bedside Glucose (Misc Panel) 203H 11/18/16 17:17: Bedside Glucose (Misc Panel) 165H 11/18/16 20:50: Bedside Glucose (Misc Panel) 159H 11/19/16 05:24: Blood Urea Nitrogen 30H, Creatinine 1.19, Sodium Level 136, Potassium Level 3.6 , Chloride Level 100, Carbon Dioxide Level 27, Calcium Level 7.5L, Aspartate Amino Transf (AST/SGOT) 30, Alanine Aminotransferase (ALT/SGPT) 32, Alkaline Phosphatase 392H, Total Bilirubin 0.5, Total Protein 6.2L, Albumin 1.4L, Albumin /Globulin Ratio 0.29L, Anion Gap 9, White Blood Count 16.9H, Red Blood Count 3.38L, Hemoglobin 9.7L, Hematocrit 30.2L, Mean Corpuscular Volume 89.5, Mean Corpuscular Hemoglobin 28.8, Mean Corpuscular Hemoglobin Concent 32.2, Red Cell Distribution Width 17.2H, Platelet Count 120L, Neutrophils (%) (Auto) 91.1H, Lymphocytes (%) (Auto) 2.6L, Monocytes (%) (Auto) 3.9, Eosinophils (%) (Auto) 1.2, Basophils (%) (Auto) 0.2, Neutrophils # (Auto) 15.4H, Lymphocytes # (Auto) 0.4L, Monocytes # (Auto) 0.7, Eosinophils # (Auto) 0.2, Basophils # (Auto) 0.0, Glomerular Filtration Rate > 60.0, Large Unclassified Cells # 0.2, Large Unclassified Cells % 0.9, Magnesium Level 1.6L 11/19/16 10:05: Vancomycin Level Trough 19.2 CBC/BMP Laboratory Tests 11/19/16 05:24 Calcium Level 7.5 L, Aspartate Amino Transf (AST/SGOT) 30, Alanine Aminotransferase (ALT/SGPT) 32, Alkaline Phosphatase 392 H, Total Bilirubin 0.5 , Total Protein 6.2 L, Albumin 1.4 L, Red Blood Count 3.38 L, Mean Corpuscular Volume 89.5, Mean Corpuscular Hemoglobin 28.8, Mean Corpuscular Hemoglobin Concent 32.2, Red Cell Distribution Width 17.2 H, Neutrophils (%) (Auto) 91.1 H , Lymphocytes (%) (Auto) 2.6 L, Monocytes (%) (Auto) 3.9, Eosinophils (%) (Auto ) 1.2, Basophils (%) (Auto) 0.2, Neutrophils # (Auto) 15.4 H, Lymphocytes # ( Auto) 0.4 L, Monocytes # (Auto) 0.7, Eosinophils # (Auto) 0.2, Basophils # (Auto ) 0.0 Microbiology Microbiology 11/15/16 Blood Culture - Preliminary, Resulted No Growth after 72 hours. All specime... 11/15/16 Blood Culture - Preliminary, Resulted No Growth after 72 hours. All specime... 11/17/16 Urine Culture - Final, Complete 11/15/16 Urine Culture - Final, Complete Rudi Mac Nov 19, 2016 11:57 ZAFAR BUSTILLO MD Nov 19, 2016 18:53
[2016-11-19] MEDS ORDERED: MAG SULF 1GM/100ML (MAG RUN) 1 GM in APPROPRIATE DILUENT 1 EA IV ONE (13:00)
[2016-11-19 14:00] VITALS: BP 123/64
[2016-11-19] MEDS: CEFEPIME HCL 1 GM in D5W MINI-BAG PLUS 50 ML IV SCH (18:13)
[2016-11-19] MEDS: LEVEMIR (INSULIN DETEMIR) 1 UNITS/0.01ML SC SCH (21:04)
[2016-11-19 22:00] VITALS: BP 124/62
[2016-11-20] MEDS: MORPHINE 4 MG/ML 1ML SYRINGE IV PRN ×2 (05:21→18:13)
[2016-11-20 05:36] LABS: BASO % 0.2 % (0.0-1.0); EOS # 0.3 K/mm3 (0.0-0.50); EOS % 2.2 % (0.0-3.0); LARGE UNSTAINED CELL # 0.1 K/mm3 (0.0-0.4); LARGE UNSTAINED CELL % 0.6 % (0.0-4.0); LYMPH # 0.7 K/mm3 (1.5-4.5); LYMPH % 4.2 % (24.0-44.0); MEAN CORPUSCULAR HEMOGLOBIN 28.8 pg (27.0-33.0); MEAN CORPUSCULAR HGB CONC 31.9 g/dl (32.0-36.5); MEAN CORPUSCULAR VOLUME 90.4 fl (80.0-96.0); MONO # 0.7 K/mm3 (0.0-0.8); MONO % 5.1 % (0.0-5.0); NEUTROPHILS # 12.1 K/mm3 (1.8-7.7); NEUTROPHILS % 87.7 % (36.0-66.0); PLATELET COUNT, AUTOMATED 108 k/mm3 (150-450); RED CELL DISTRIBUTION WIDTH 17.3 % (11.5-14.5); WHITE BLOOD COUNT 13.8 K/mm3 (4.0-10.0)
[2016-11-20 06:00] VITALS: BP 132/73
[2016-11-20 06:47] LABS: ALBUMIN 1.4 GM/DL (3.2-5.2); ALBUMIN/GLOBULIN RATIO 0.36 (1.00-1.93); ALKALINE PHOSPHATASE 396 U/L (45-117); ALT/SGPT 31 U/L (12-78); ANION GAP 11 MEQ/L (8-16); AST/SGOT 35 U/L (15-37); BILIRUBIN,TOTAL 0.5 MG/DL (0.2-1.0); BLOOD UREA NITROGEN 16 MG/DL (7-18); CALCIUM LEVEL 7.1 MG/DL (8.5-10.1); CARBON DIOXIDE LEVEL 26 MEQ/L (21-32); CHLORIDE LEVEL 99 MEQ/L (98-107); CREATININE FOR GFR 0.73 MG/DL (0.70-1.30); GLOMERULAR FILTRATION RATE > 60.0 (>56); GLUCOSE, FASTING 75 MG/DL (70-105); MAGNESIUM LEVEL 1.6 MG/DL (1.8-2.4); SODIUM LEVEL 136 MEQ/L (136-145); TOTAL PROTEIN 5.3 GM/DL (6.4-8.2)
[2016-11-20] MEDS: HumaLOG INSULIN (NovoLOG) PER UNIT SC SCH ×4 (07:02→20:45)
[2016-11-20] MEDS: IPRATROPIUM 0.5MG/ALBUTEROL 2.5MG INH SOL UD 3ML (DUONEB)(J7620) NEB SCH ×4 (08:00→20:55)
[2016-11-20] MEDS: MIRALAX *UNIT DOSE* 17GM PACKET PO SCH (10:17)
[2016-11-20] MEDS: CHLORHEXIDINE GLUCONATE 0.12 % 15ML UDC (PERIDEX ORAL RINSE) MT SCH ×2 (10:18→20:45)
[2016-11-20] MEDS: MORPHINE 30 MG SA TAB PO SCH ×2 (10:18→20:48)
[2016-11-20] MEDS: SODIUM CHLORIDE 0.9% INJ 10 ML SYR IV SCH (10:18)
[2016-11-20] MEDS: PANTOPRAZOLE 40MG TAB (PROTONIX) PO SCH (10:18)
[2016-11-20] MEDS: NICOTINE 21MG/24HR 1 EA TRANSDERMAL TD SCH (10:18)
[2016-11-20] MEDS: ENOXAPARIN 30 MG/0.3 ML SYR (J1650) SC SCH (10:19)
[2016-11-20] MEDS: VANCOMYCIN HCL 1,000 MG, VIAL MATE ADAPTER 1 EACH in D5W 250 ML IV SCH (10:52)
--- NOTE | 2016-11-20 11:23 | IPNPDOC ---
Subjective Date Seen The patient was seen on 11/20/16. Subjective Chief Complaint/HPI The patient is a 55-year-old male admitted with a reason for visit of Hyperglycemia,Sepsis. Events since last encounter Pt denies new issues. Continues with pain. Denies CP, SOB, Abd pain. Pt anticipates Hospice visit today to discuss options. Constitutional: Denies: Chills, Fever Pulmonary: Denies: Dyspnea Cardiovascular: Denies: Chest Pain Gastrointestinal: Denies: Abdominal Pain, Nausea, Vomiting Objective Physical Examination General Exam: Positive: Alert, No Acute Distress ENT Exam: Positive: Mucous membr. moist/pink Chest Exam: Positive: Diminished, Other (bibasilar crackles) Heart Exam: Positive: Normal S1, Rate Normal, Regular Rhythm Abdomen Exam: Positive: Normal bowel sounds, Other (hepatomegaly, abd slightly firm, distended, mildly diffusely tender to palpation) Extremity Exam: Negative: Edema Psych Exam: Positive: Mental status NL Assessment /Plan Problems (1) Sepsis Status: Acute Response to Treatment: Stable Discussed With: Nurse, Patient Problem Specific Plan: Monitor Clinically, Repeat Labs Problem Text: 11/20 - D5 Cefepime/Vanco D5, Afebrile, WBC continues to trend down: 13.8 today. Urine and blood cultures Neg JFW: will d/c vanco, on Day 5 11/19 - D4 Cefepime/Vanco D4, Afebrile, WBC continues to trend down: 16.9 today (17.4 yesterday). Urine and blood cultures Neg 11/18 - D3 Cefepime/Vanco D3, Afebrile, WBC continues to trend down. Urine and blood cultures Neg 11/17 - Cefepime/Vaco D2, WBC continues to trend down, afebrile. Lactic acid normalized. Blood cultures pending, urine culture pending. 11/16 Pt started on Cefepime/Vanco on admission D1, [place] [address] [place] [address], tmax 100.4, this morning. Recheck lactic acid. Urine and blood cultures pending. (2) ARF (acute renal failure) Status: Acute Discussed With: Nurse, Patient Problem Specific Plan: Monitor Clinically, Repeat Labs Problem Text: 11/20 - Creat 0.73. 11/19 - Creat 1.19. 11/18- Scr normalized, d/c IVF. 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 11/19 - Pt states he is interested in Hospice. last dose of Chemo 11/02 per pt. 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 Add Levemir 10 units. A1c 11/16/16 8.9% (6) Metastases to the liver Status: Chronic Response to Treatment: Progressing Problem Text: 11/20 - AST 35, ALT 31. 11/19 - AST 32, ALT 30. AST 283, ALT 105, known liver mets, INR 1.22 (7) Anemia Status: Acute Response to Treatment: Worse Discussed With: Nurse, Patient Problem Specific Plan: Monitor Clinically, Repeat Labs Problem Text: 11/20 - Hgb 9.2/Hct 29 11/19 - Hgb Stable. S/P 2 Units PRBCs on 11/17. Will transfuse 2 units pRBC, consent obtained, check work up. (8) Hypomagnesemia Status: Acute Problem Specific Plan: Monitor Clinically, Repeat Labs Problem Text: 11/20 - Mag 1.6. Give mag run. 11/19 - Mag 1.6. Give mag run. Plan/VTE VTE Prophylaxis Ordered?: Yes Plan/Urinary Catheter Reason for insertion/continuin: Acute obstruct/retention Plan Anticipated Discharge: Hospice (anticipated discharge on 11/19) Advance Directives: DNR VS, I&O, 24H, Fishbone Vital Signs/I&O Vital Signs Date Time Temp Pulse Resp B/P Pulse Ox O2 Delivery O2 Flow Rate FiO2 11/20/16 10:18 16 11/20/16 06:00 97.8 91 132/73 92 Room Air 11/18/16 08:00 35 11/17/16 20:00 8.0 I&O- Last 24 Hours up to 6 AM 11/20/16 06:00 Intake Total 1320 ml Output Total 3450 ml Balance -2130 ml Laboratory Data 24H LABS Laboratory Tests 2 11/19/16 12:04: Bedside Glucose (Misc Panel) 165H 11/19/16 17:00: Bedside Glucose (Misc Panel) 180H 11/19/16 20:17: Bedside Glucose (Misc Panel) 176H 11/20/16 05:20: Blood Urea Nitrogen 16, Creatinine 0.73, Sodium Level 136, Potassium Level 4.0, Chloride Level 99, Carbon Dioxide Level 26, Calcium Level 7.1L, Aspartate Amino Transf (AST/SGOT) 35, Alanine Aminotransferase (ALT/SGPT) 31, Alkaline Phosphatase 396H, Total Bilirubin 0.5, Total Protein 5.3L, Albumin 1.4L, Albumin /Globulin Ratio 0.36L, Anion Gap 11, White Blood Count 13.8H, Red Blood Count 3.20L, Hemoglobin 9.2L, Hematocrit 29.0L, Mean Corpuscular Volume 90.4, Mean Corpuscular Hemoglobin 28.8, Mean Corpuscular Hemoglobin Concent 31.9L, Red Cell Distribution Width 17.3H, Platelet Count 108L, Neutrophils (%) (Auto) 87.7H , Lymphocytes (%) (Auto) 4.2L, Monocytes (%) (Auto) 5.1H, Eosinophils (%) (Auto ) 2.2, Basophils (%) (Auto) 0.2, Neutrophils # (Auto) 12.1H, Lymphocytes # (Auto ) 0.7L, Monocytes # (Auto) 0.7, Eosinophils # (Auto) 0.3, Basophils # (Auto) 0.0 , Glomerular Filtration Rate > 60.0, Large Unclassified Cells # 0.1, Large Unclassified Cells % 0.6, Magnesium Level 1.6L CBC/BMP Laboratory Tests 11/20/16 05:20 Calcium Level 7.1 L, Aspartate Amino Transf (AST/SGOT) 35, Alanine Aminotransferase (ALT/SGPT) 31, Alkaline Phosphatase 396 H, Total Bilirubin 0.5 , Total Protein 5.3 L, Albumin 1.4 L, Red Blood Count 3.20 L, Mean Corpuscular Volume 90.4, Mean Corpuscular Hemoglobin 28.8, Mean Corpuscular Hemoglobin Concent 31.9 L, Red Cell Distribution Width 17.3 H, Neutrophils (%) (Auto) 87.7 H, Lymphocytes (%) (Auto) 4.2 L, Monocytes (%) (Auto) 5.1 H, Eosinophils (%) ( Auto) 2.2, Basophils (%) (Auto) 0.2, Neutrophils # (Auto) 12.1 H, Lymphocytes # (Auto) 0.7 L, Monocytes # (Auto) 0.7, Eosinophils # (Auto) 0.3, Basophils # ( Auto) 0.0 Microbiology Microbiology 11/15/16 Blood Culture - Preliminary, Resulted No Growth after 72 hours. All specime... 11/15/16 Blood Culture - Preliminary, Resulted No Growth after 72 hours. All specime... 11/17/16 Urine Culture - Final, Complete 11/15/16 Urine Culture - Final, Complete Rudi Mac Nov 20, 2016 11:22 Martínez Edwards MD Nov 20, 2016 15:58
[2016-11-20] MEDS ORDERED: MAG SULF 1GM/100ML (MAG RUN) 1 GM in APPROPRIATE DILUENT 1 EA IV ONE (12:00)
[2016-11-20 14:00] VITALS: BP 121/69
[2016-11-20] MEDS: CEFEPIME HCL 1 GM in D5W MINI-BAG PLUS 50 ML IV SCH (17:59)
[2016-11-20] MEDS: LEVEMIR (INSULIN DETEMIR) 1 UNITS/0.01ML SC SCH (20:49)
[2016-11-20 22:00] VITALS: BP 108/61
[2016-11-21] MEDS: MORPHINE 4 MG/ML 1ML SYRINGE IV PRN ×2 (00:11→05:00)
[2016-11-21] MEDS: SODIUM CHLORIDE 0.9% INJ 10 ML SYR IV PRN (00:11)
[2016-11-21 05:21] LABS: BASO % 0.2 % (0.0-1.0); EOS # 0.2 K/mm3 (0.0-0.50); EOS % 1.3 % (0.0-3.0); LARGE UNSTAINED CELL # 0.1 K/mm3 (0.0-0.4); LARGE UNSTAINED CELL % 0.8 % (0.0-4.0); LYMPH # 0.6 K/mm3 (1.5-4.5); LYMPH % 3.4 % (24.0-44.0); MEAN CORPUSCULAR HEMOGLOBIN 27.9 pg (27.0-33.0); MEAN CORPUSCULAR HGB CONC 30.8 g/dl (32.0-36.5); MEAN CORPUSCULAR VOLUME 90.6 fl (80.0-96.0); MONO # 0.9 K/mm3 (0.0-0.8); MONO % 5.2 % (0.0-5.0); NEUTROPHILS # 14.7 K/mm3 (1.8-7.7); NEUTROPHILS % 89.1 % (36.0-66.0); PLATELET COUNT, AUTOMATED 115 k/mm3 (150-450); WHITE BLOOD COUNT 16.5 K/mm3 (4.0-10.0)
[2016-11-21 06:00] VITALS: BP 110/56
[2016-11-21 06:16] LABS: ALBUMIN 1.5 GM/DL (3.2-5.2); ALBUMIN/GLOBULIN RATIO 0.39 (1.00-1.93); ALKALINE PHOSPHATASE 359 U/L (45-117); ALT/SGPT 28 U/L (12-78); ANION GAP 10 MEQ/L (8-16); AST/SGOT 35 U/L (15-37); BILIRUBIN,TOTAL 0.4 MG/DL (0.2-1.0); BLOOD UREA NITROGEN 14 MG/DL (7-18); CALCIUM LEVEL 7.4 MG/DL (8.5-10.1); CARBON DIOXIDE LEVEL 26 MEQ/L (21-32); CHLORIDE LEVEL 99 MEQ/L (98-107); CREATININE FOR GFR 0.72 MG/DL (0.70-1.30); GLOMERULAR FILTRATION RATE > 60.0 (>56); GLUCOSE, FASTING 108 MG/DL (70-105); MAGNESIUM LEVEL 1.5 MG/DL (1.8-2.4); SODIUM LEVEL 135 MEQ/L (136-145); TOTAL PROTEIN 5.3 GM/DL (6.4-8.2)
[2016-11-21] MEDS: HumaLOG INSULIN (NovoLOG) PER UNIT SC SCH ×3 (07:30→16:33)
[2016-11-21] MEDS: IPRATROPIUM 0.5MG/ALBUTEROL 2.5MG INH SOL UD 3ML (DUONEB)(J7620) NEB SCH ×3 (07:53→15:08)
[2016-11-21] MEDS: MIRALAX *UNIT DOSE* 17GM PACKET PO SCH (08:23)
[2016-11-21] MEDS: MORPHINE 30 MG SA TAB PO SCH (08:24)
[2016-11-21] MEDS: PANTOPRAZOLE 40MG TAB (PROTONIX) PO SCH (08:24)
[2016-11-21] MEDS: SODIUM CHLORIDE 0.9% INJ 10 ML SYR IV SCH (08:25)
[2016-11-21] MEDS: NICOTINE 21MG/24HR 1 EA TRANSDERMAL TD SCH (08:25)
[2016-11-21] MEDS ORDERED: ENOXAPARIN 30 MG/0.3 ML SYR (J1650) SC SCH (09:00)
--- NOTE | 2016-11-21 09:21 | IPNPDOC ---
Subjective Date Seen The patient was seen on 11/21/16. Subjective Chief Complaint/HPI The patient is a 55-year-old male admitted with a reason for visit of Hyperglycemia,Sepsis. Events since last encounter Pt states he is about the same. Pt denies SOB, CP. He anticipates Hospice coming in to meet with him today. Hospice is supposed to see him here today - apparently there was miscommunication yesterday and therefore Hospice did not come yesterday. Nursing has spoken to Hospice about coming today. Constitutional: Denies: Chills, Fever Pulmonary: Denies: Dyspnea Cardiovascular: Denies: Chest Pain Gastrointestinal: Denies: Abdominal Pain, Nausea, Vomiting Objective Physical Examination General Exam: Positive: Alert, No Acute Distress ENT Exam: Positive: Mucous membr. moist/pink Chest Exam: Positive: Diminished, Other (bibasilar crackles) Heart Exam: Positive: Normal S1, Rate Normal, Regular Rhythm Abdomen Exam: Positive: Normal bowel sounds, Soft, Negative: Tenderness Extremity Exam: Negative: Edema Psych Exam: Positive: Mental status NL Assessment /Plan Problems (1) Sepsis Status: Acute Response to Treatment: Stable Discussed With: Nurse, Patient Problem Specific Plan: Monitor Clinically, Repeat Labs Problem Text: 11/21 - D6 Cefepime. Vanco was d/c'ed yesterday after 5 days, Afebrile, WBC cup today at 16.5 (was 13.8 yesterday). Urine and blood cultures Neg 11/20 - D5 Cefepime/Vanco D5, Afebrile, WBC continues to trend down: 13.8 today. Urine and blood cultures Neg JFW: will d/c vanco, on Day 5 11/19 - D4 Cefepime/Vanco D4, Afebrile, WBC continues to trend down: 16.9 today (17.4 yesterday). Urine and blood cultures Neg 11/18 - D3 Cefepime/Vanco D3, Afebrile, WBC continues to trend down. Urine and blood cultures Neg 11/17 - Cefepime/Vaco D2, WBC continues to trend down, afebrile. Lactic acid normalized. Blood cultures pending, urine culture pending. 11/16 Pt started on Cefepime/Vanco on admission D1, [place] [address] [place] [address], tmax 100.4, this morning. Recheck lactic acid. Urine and blood cultures pending. (2) ARF (acute renal failure) Status: Acute Discussed With: Nurse, Patient Problem Specific Plan: Monitor Clinically, Repeat Labs Problem Text: 11/21 - Creat 0.72. 11/20 - Creat 0.73. 11/19 - Creat 1.19. 11/18- Scr normalized, d/c IVF. 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 Nursing has spoken to Hospice about coming today. JFW: pt met with and rejected Hospice as an option, wants dc this afternoon 11/20 - Hospice consult ordered, and Hospice is supposed to see him here today. 11/19 - Pt states he is interested in Hospice. last dose of Chemo 11/02 per pt. 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 Add Levemir 10 units. A1c 11/16/16 8.9% 11/21 JFW: insulin requirements are low, and his prognosis is not affected by any level of diabetic control. Will NOT dc on insulin; if develops DMOOC, could consider oral agent or basal insulin as an outpt (d/w Steven Mac his PCP) (6) Metastases to the liver Status: Chronic Response to Treatment: Progressing Problem Text: 11/21 - AST 35, ALT 28. 11/20 - AST 35, ALT 31. 11/19 - AST 32, ALT 30. AST 283, ALT 105, known liver mets, INR 1.22 (7) Anemia Status: Acute Response to Treatment: Worse Discussed With: Nurse, Patient Problem Specific Plan: Monitor Clinically, Repeat Labs Problem Text: 11/21 - Hgb 9.3/Hct 30.3 11/20 - Hgb 9.2/Hct 29 11/19 - Hgb Stable. S/P 2 Units PRBCs on 11/17. Will transfuse 2 units pRBC, consent obtained, check work up. (8) Hypomagnesemia Status: Acute Problem Specific Plan: Monitor Clinically, Repeat Labs Problem Text: 11/21 - Mag 1.5. Give mag run x2. 11/20 - Mag 1.6. Give mag run. 11/19 - Mag 1.6. Give mag run. (9) Nye catheter in place Status: Acute Problem Specific Plan: Monitor Clinically Problem Text: Pt has nye in place. Requiring periodic irrigation due to mucous. Pt follows with Urology as outpt. Plan/VTE VTE Prophylaxis Ordered?: Yes Plan/Urinary Catheter Reason for insertion/continuin: Acute obstruct/retention Plan Anticipated Discharge: Hospice (anticipated discharge on 11/19) Advance Directives: DNR VS, I&O, 24H, Fishbone Vital Signs/I&O Vital Signs Date Time Temp Pulse Resp B/P Pulse Ox O2 Delivery O2 Flow Rate FiO2 11/21/16 08:24 20 11/21/16 06:00 99.2 95 110/56 93 Trach Collar 11/18/16 08:00 35 11/17/16 20:00 8.0 I&O- Last 24 Hours up to 6 AM 11/21/16 06:00 Intake Total 2160 ml Output Total 1775 ml Balance 385 ml Laboratory Data 24H LABS Laboratory Tests 2 11/20/16 11:34: Bedside Glucose (Misc Panel) 225H 11/20/16 17:31: Bedside Glucose (Misc Panel) 128H 11/20/16 20:25: Bedside Glucose (Misc Panel) 262H 11/21/16 05:08: Blood Urea Nitrogen 14, Creatinine 0.72, Sodium Level 135L, Potassium Level 4.0 , Chloride Level 99, Carbon Dioxide Level 26, Calcium Level 7.4L, Aspartate Amino Transf (AST/SGOT) 35, Alanine Aminotransferase (ALT/SGPT) 28, Alkaline Phosphatase 359H, Total Bilirubin 0.4, Total Protein 5.3L, Albumin 1.5L, Albumin /Globulin Ratio 0.39L, Anion Gap 10, White Blood Count 16.5H, Red Blood Count 3.35L, Hemoglobin 9.3L, Hematocrit 30.3L, Mean Corpuscular Volume 90.6, Mean Corpuscular Hemoglobin 27.9, Mean Corpuscular Hemoglobin Concent 30.8L, Red Cell Distribution Width 17.0H, Platelet Count 115L, Neutrophils (%) (Auto) 89.1H , Lymphocytes (%) (Auto) 3.4L, Monocytes (%) (Auto) 5.2H, Eosinophils (%) (Auto ) 1.3, Basophils (%) (Auto) 0.2, Neutrophils # (Auto) 14.7H, Lymphocytes # (Auto ) 0.6L, Monocytes # (Auto) 0.9H, Eosinophils # (Auto) 0.2, Basophils # (Auto) 0.0, Glomerular Filtration Rate > 60.0, Large Unclassified Cells # 0.1, Large Unclassified Cells % 0.8, Magnesium Level 1.5L CBC/BMP Laboratory Tests 11/21/16 05:08 Calcium Level 7.4 L, Aspartate Amino Transf (AST/SGOT) 35, Alanine Aminotransferase (ALT/SGPT) 28, Alkaline Phosphatase 359 H, Total Bilirubin 0.4 , Total Protein 5.3 L, Albumin 1.5 L, Red Blood Count 3.35 L, Mean Corpuscular Volume 90.6, Mean Corpuscular Hemoglobin 27.9, Mean Corpuscular Hemoglobin Concent 30.8 L, Red Cell Distribution Width 17.0 H, Neutrophils (%) (Auto) 89.1 H, Lymphocytes (%) (Auto) 3.4 L, Monocytes (%) (Auto) 5.2 H, Eosinophils (%) ( Auto) 1.3, Basophils (%) (Auto) 0.2, Neutrophils # (Auto) 14.7 H, Lymphocytes # (Auto) 0.6 L, Monocytes # (Auto) 0.9 H, Eosinophils # (Auto) 0.2, Basophils # ( Auto) 0.0 Microbiology Microbiology 11/15/16 Blood Culture - Final, Complete NO GROWTH AFTER 5 DAYS 11/15/16 Blood Culture - Final, Complete NO GROWTH AFTER 5 DAYS 11/17/16 Urine Culture - Final, Complete 11/15/16 Urine Culture - Final, Complete Rudi Mac RPA-Alejandra Nov 21, 2016 09:21 Martínez Edwards MD Nov 21, 2016 16:02
[2016-11-21] MEDS: MAG SULF 1GM/100ML (MAG RUN) 1 GM in APPROPRIATE DILUENT 1 EA IV SCH ×2 (10:19→11:21)
[2016-11-21] MEDS: MOM 30ML SUSPENSION UDC PO PRN (10:47)
[2016-11-21] MEDS: CHLORHEXIDINE GLUCONATE 0.12 % 15ML UDC (PERIDEX ORAL RINSE) MT SCH (10:47)
[2016-11-21 14:00] VITALS: BP 124/63
[2016-11-21] MEDS: CEFEPIME HCL 1 GM in D5W MINI-BAG PLUS 50 ML IV SCH (18:02)
--- NOTE | 2016-11-23 13:35 | DSES ---
DATE OF ADMISSION: 11/15/2016 DATE OF DISCHARGE: 11/21/2016 PRIMARY CARE PROVIDER: JOCELYNE Cox ATTENDING PHYSICIAN: Dr. Edwards HISTORY OF PRESENT ILLNESS: Martínez Abbasi is a 55-year-old male patient who follows at the [facility] with JOCELYNE Cox, however he has not been into the clinic since February 2016. The patient does follow with Dr. 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 The patient has been undergoing radiation and chemotherapy and most recently had chemotherapy 2 weeks prior to admission at [facility]. The patient has a history of a tracheostomy. The patient has been undergoing bariatric treatments in [place] as well. He came into the emergency room with sudden difficulty breathing and abdominal pain. 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 The patient was admitted and started on cefepime and vancomycin. He was in acute renal failure and was started on IV fluids. The patient was anemic and did receive transfusion of 2 units packed red blood cells. Hemoglobin improved and remained stable throughout the rest of the course of hospitalization. WBC was trending down. The patient did have some urinary retention and a Cam was placed. The patient did require flushing of the Cam catheter due to mucus. He does follow with urology as an outpatient. Prior to being discharged, the Cam catheter was removed. The patient does have self catheterization kit at home and will need to follow up with urology. [facility] will also follow with the patient. The patient was seen on day of discharge by Dr. Edwards, who stopped his antibiotics after the patient had received 6 days of cefepime and 5 days of vancomycin. Urine and blood cultures were negative. Hospice came in to see the patient and the patient ultimately elected against hospice. [facility] will be [facility]. The patient had been started on insulin for hyperglycemia. By day of discharge, it was felt the patient's insulin requirements were low and his prognosis is not to be affected by any level of diabetic control. Dr. Edwards felt that it was not necessarily to discharge on insulin. If the patient develops diabetes mellitus out of control, then can consider on oral agent or basal insulin as an outpatient. Further monitoring as an outpatient. The patient is following with oncology for laryngeal cancer and bladder cancer. He does have metastases to the liver. He will need to followup with oncology. He will need to followup with urology as well. During the course of hospitalization, magnesium was low, and the patient was given supplemental replacement on magnesium. PHYSICAL EXAMINATION: Temperature 95.3, pulse 94, respiratory rate 18, blood pressure is 124/63, pulse oximetry 99%. GENERAL: The patient is alert, no acute distress. NECK: Tracheostomy. CHEST: Diminished with scattered crackles. HEART: Regular rate and rhythm. ABDOMEN: Positive bowel sounds, soft, nontender. EXTREMITIES: No edema. MEDICATIONS: - hydrocodone 7.5/325 mg one to two tablets by mouth every 4 hours as needed for pain - morphine sulfate 60 mg tabs by mouth twice a day - Zofran 8 mg by mouth every 8 hours as needed for nausea or vomiting - prochlorperazine maleate 10 mg by mouth every 6 hours as needed for nausea or vomiting - promethazine 25 mg by mouth every 8 hours as needed for nausea or vomiting. DISCHARGE INSTRUCTIONS: The patient should followup with JOCELYNE Cox or Dr. Edwards within a week. The patient should followup with his oncologist within a week. The patient should followup with his urologist, Dr. Miller, within a week. Public health was consulted. Diet is regular. Activity as tolerated. DISCHARGE DIAGNOSES: 1. Sepsis. 2. Acute renal failure. 3. Laryngeal cancer. 4. Bladder cancer. 5. Urinary retention. 6. Hyperglycemia. 7. Liver metastases. 8. Anemia. 9. Hypomagnesemia.
== END 2016-11-21 19:07 | disposition home health service (06) | DRG 720 ==
LOC: M ED 16:05 → M ED INP 20:18 → M ICU 21:46 → M MSPAV 11-18 12:05
PROVIDERS: ADMIT Internal Medicine Nephrology; ATTEND Family Medicine
PROC: 30233N1 Transfusion of Nonautologous Red Blood Cells into Peripheral Vein, Percutaneous Approach (ICD-10-PCS; principal; 2016-11-17)
DX: A41.9 Sepsis, unspecified organism (principal); N17.9 Acute kidney failure, unspecified; C77.2 Secondary and unspecified malignant neoplasm of intra-abdominal lymph nodes; Z93.0 Tracheostomy status; C78.7 Secondary malignant neoplasm of liver and intrahepatic bile duct; C79.2 Secondary malignant neoplasm of skin; E83.42 Hypomagnesemia; J44.9 Chronic obstructive pulmonary disease, unspecified; C32.9 Malignant neoplasm of larynx, unspecified; C67.9 Malignant neoplasm of bladder, unspecified; Z79.899 Other long term (current) drug therapy; D64.9 Anemia, unspecified; R73.9 Hyperglycemia, unspecified; R33.9 Retention of urine, unspecified

== ENCOUNTER → 2016-11-30 | Outpatient (REF) | payer OTHER ==
[~2016-11-30] MED LIST changes: +HYDR-3716 PO; +MAGN1TAB25 PO; +MORP60TA PO; +NORCOTAB PO; +PROC10TA PO; +PROM25TA PO; +SENN8.6T10 PO; +ZOFR8TAB PO
[2016-11-30 19:31] LABS: ALBUMIN 1.6 GM/DL (3.2-5.2); ALBUMIN/GLOBULIN RATIO 0.39 (1.00-1.93); BILIRUBIN,TOTAL 0.5 MG/DL (0.2-1.0); CALCIUM LEVEL 7.8 MG/DL (8.5-10.1); CREATININE FOR GFR 1.56 MG/DL (0.70-1.30); GLOMERULAR FILTRATION RATE 49.3 (>56); MAGNESIUM LEVEL 1.4 MG/DL (1.8-2.4); TOTAL PROTEIN 5.7 GM/DL (6.4-8.2)
[2016-11-30 19:34] LABS: POTASSIUM SERUM 5.6 MEQ/L (3.5-5.1)
[2016-11-30 19:53] LABS: CALCIUM LEVEL 8.1 MG/DL (8.5-10.1); CREATININE FOR GFR 1.62 MG/DL (0.70-1.30); GLOMERULAR FILTRATION RATE 47.2 (>56)
[2016-11-30 19:55] LABS: POTASSIUM SERUM 5.6 MEQ/L (3.5-5.1)
[2016-11-30 20:18] LABS: ADD MORPHOLOGY? YES; BASO % 0.2 % (0.0-1.0); EOS # 0.1 K/mm3 (0.0-0.50); EOS % 0.6 % (0.0-3.0); LARGE UNSTAINED CELL # 0.2 K/mm3 (0.0-0.4); LARGE UNSTAINED CELL % 0.8 % (0.0-4.0); LYMPH # 0.6 K/mm3 (1.5-4.5); MEAN CORPUSCULAR HEMOGLOBIN 27.4 pg (27.0-33.0); MEAN CORPUSCULAR HGB CONC 28.6 g/dl (32.0-36.5); MEAN CORPUSCULAR VOLUME 95.8 fl (80.0-96.0); MONO # 0.6 K/mm3 (0.0-0.8); NEUTROPHILS # 18.2 K/mm3 (1.8-7.7); NEUTROPHILS % 92.4 % (36.0-66.0); PLATELET COUNT, AUTOMATED 103 k/mm3 (150-450); RED CELL DISTRIBUTION WIDTH 16.6 % (11.5-14.5); WHITE BLOOD COUNT 19.7 K/mm3 (4.0-10.0)
[2016-11-30 20:20] LABS: WHITE BLOOD COUNT 19.7 K/mm3 (4.0-10.0)
[2016-11-30 20:21] LABS: MEAN CORPUSCULAR HEMOGLOBIN 27.4 pg (27.0-33.0); MEAN CORPUSCULAR HGB CONC 28.6 g/dl (32.0-36.5); MEAN CORPUSCULAR VOLUME 95.8 fl (80.0-96.0); RED CELL DISTRIBUTION WIDTH 16.6 % (11.5-14.5)
[2016-11-30 21:07] LABS: ANISOCYTOSIS 1+; HYPOCHROMASIA 2+
== END ==
LOC: M SFHCPLAZ 13:15
PROVIDERS: ATTEND Urology
DX: C67.9 Malignant neoplasm of bladder, unspecified (principal); D64.9 Anemia, unspecified; R33.9 Retention of urine, unspecified; E83.42 Hypomagnesemia

== ENCOUNTER 2016-12-05 14:44 | Inpatient (IN) | payer OTHER ==
[~2016-12-05] VITALS: Ht 175.3 cm; Wt 77.5 kg
[~2016-12-05 14:44] MED LIST changes: +GABA-282 PO; -GABA300C3 PO; -MAGN1TAB25 PO; -NORCOTAB PO; -SENN8.6T10 PO
[2016-12-05] MEDS ORDERED: SENN8.6T10 PO (14:56)
[2016-12-05] MEDS ORDERED: MAGN1TAB25 PO (14:56)
[2016-12-05] MEDS ORDERED: NS IV ONE (15:15)
[2016-12-05] MEDS ORDERED: DILUENT IV ONE (15:15)
[2016-12-05] MEDS ORDERED: cefTRIAXone SOD 2 GM in D5W MINI-BAG PLUS 50 ML IV ONE (15:30)
[2016-12-05] MEDS ORDERED: cefTRIAXone SOD 1 GM VIAL (J0696) As Ordered ONE (16:29)
--- NOTE | 2016-12-05 17:39 | ECGEPIP ---
Stationary ECG Study [facility] - ED Test Date: 2016-12-05 Pat Name: LUCINDA PURCELL Department: Room: - Gender: M First Sampler: kristian : 1960 Requested By: Jessenia Clemons Order Number: [id number] Reading MD: Saul Miller Measurements Intervals [place] Rate: 92 P: 51 HI: 155 QRS: 21 QRSD: 111 T: 43 QT: 366 QTc: 454 Interpretive Statements SINUS RHYTHM INC. RBBB SIMILAR TO 11/15/16 Electronically Signed On 12-05-2016 17:38:46 EDT by Saul Miller
[2016-12-05] MEDS ORDERED: NORCOTAB PO (18:08)
--- NOTE | 2016-12-05 18:11 | REP ---
Portable chest x-ray: Sitting AP view. History: Sepsis. Shock. Comparison chest x-ray November 15, 2016. Findings: Tracheostomy tube is seen in good position. EKG electrodes are seen. A right internal jugular vein [id number] is noted in place. The lungs are symmetrically aerated and clear. Pleural angles are sharp. Heart is not enlarged. Impression: [id number]-[id number] in place. No acute disease. Signed by Lonnie Williamson MD 12/05/2016 06:21 P
--- NOTE | 2016-12-05 18:23 | REP ---
CT CHEST WITHOUT CONTRAST: 12/05/2016. Clinical history: Abdominal pain, sepsis. History tracheotomy for throat cancer. Bladder carcinoma. Comparison: CT chest without contrast 10/03/2016. Chest x-ray 11/15/2016. Findings: The lung oliveira are well inflated. Some dependent atelectatic changes are noted. There is linear fibrosis or atelectasis in the left lateral base. There is patchy atelectasis or infiltrate in the medial segment of the right middle lobe. Ill-defined nodular density along the superior aspect of the major fissure on the right. I do not see a parenchymal lung mass, pleural effusion or acute infiltrate. There is some cylindrical bronchiectatic change in the lower lung zones. A tracheostomy tube is seen into the thoracic trachea. There is a small amount of mucus debris left tracheal wall, below it. The aorta has atherosclerotic calcifications without aneurysm. There are prevascular space nodes up to 13 mm. Some AP window, precarinal, right paratracheal and subcarinal nodes; all under a centimeter in size. No pericardial thickening or effusion, no gross cardiomegaly. There is a right jugular central catheter with tip in the SVC junction with the right atrium. Bone windows show degenerative changes throughout the thoracic spine. Since the prior study in September, there is superior endplate compression of T8 vertebral body. The T11 vertebral body shows a pattern of destructive lesion posteriorly along the left lateral margin near the pedicle as a new finding suggesting a metastatic lesion. Visualized ribs, sternum, manubrium, medial clavicles, AC joints, humeral heads and scapula were grossly intact. No rib fractures or focal lesions were seen. There is elevation of the right diaphragm. There is no free air under that diaphragm. The liver is enlarged with numerous metastatic lesions scattered throughout it and trace ascites adjacent. No hiatal hernia. Only a portion of the spleen included. Impression: 1. There is some minor fibroatelectatic change and some bronchiectasis in the lungs without effusion, acute infiltrate or mass. 2. Adenopathy in the prevascular space up to 13 mm with subcentimeter nodes elsewhere in the mediastinum. 3. Tracheostomy tube unchanged with an indwelling right jugular catheter. 4. There is destructive changes developed in T11 and inferior compression endplate deformity of T8, also with suspected destructive lesions that may reflect metastatic disease. Lucency in the left humeral head, ill-defined, may reflect metastatic disease. 5. Diffuse metastatic disease of the liver. Signed by Anup Gipson MD 12/05/2016 06:45 P
--- NOTE | 2016-12-05 18:34 | REP ---
CT ABDOMEN PELVIS WITHOUT CONTRAST: 12/05/2016. COMPARISON: 11/15/2016. CLINICAL HISTORY: Abdominal pain, sepsis. Tracheostomy for throat carcinoma. Bladder carcinoma with known hepatic metastatic disease and ascites. TECHNIQUE: Noncontrast images performed. No IV contrast per request. Some oral contrast in the right colon minimally in the stomach. Coronal and sagittal reconstructions. CT ABDOMEN: Lung window review shows no signs of perforation or free air in the abdomen or pelvis on any slice. There is no hiatal hernia. Stomach filled with retained fluid and food material. There is a ventral small abdominal wall hernia with omental fat only at the umbilicus and then again just above it. No bowel herniation in either of these regions. There is hepatomegaly with diffuse heterogeneous metastatic disease in the liver with the liver enlarged up to 21 cm in the midclavicular line. There is an enlarged left lobe and the liver somewhat lobulated. Spleen is not enlarged and shows no focal lesion. There is a small amount of ascites adjacent to both and following in the peroneal gutters to the pelvis. The gallbladder shows no calcified stone or mass. Pancreas shows no mass, ductal dilatation or adjacent inflammatory change. Small bowel loops are not abnormally dilated. There are mostly fluid-filled. No edema in the mesentery. There is no pathologic adenopathy in the mesentery. There are surgical staple lines and a neobladder evident. I do not see ileostomy at this time. There is fluid tracking into the pelvis via both peroneal gutters more from the right than left side. That portion of colon identified in the abdomen shows no sign of colitis, diverticulitis, stricture or mass. There are some periaortic nodes up to 11 mm to the left of the aorta at the level of the lower pole of the left kidney, 11 mm or similar size. Aortocaval nodes with smaller mesenteric nodes. The bone windows show destructive lesion inferior aspect posterior margin L1, superior and posterior aspect of L5, similar to the previous study but without progression degenerative disc and facet changes are noted. Visualized ribs are grossly intact. No spondylolysis. Kidneys show no hydronephrosis, stone or mass. No perinephric fluid. Some stranding in the perinephric space. CT PELVIS: The bony hips show degenerative changes in the acetabulum and femoral head with rim osteophytes. No AVN. There are degenerative acetabular roof changes bilaterally right greater than left. Iliac wings and symphysis pubis intact. [place] show lucency in the left ala which could be a metastatic lesion. No pathologic fractures. Atherosclerotic calcifications of the aorta and iliac vessels without aneurysm. Medial bladder seen with abundant ascites in the deep pelvis. The left inguinal canal is partially filled with fluid but no bowel herniation. Distal left colon, sigmoid and rectum without sign of colitis or diverticulitis. No pelvic mass. IMPRESSION:1. Generalized ascites. Moderate volume of all four quadrants with significant metastatic disease throughout the liver with hepatomegaly and involving all lobes and segments. There is no splenomegaly or focal lesion. 2. The kidneys are grossly intact and the pancreas is intact. Adrenal glands without a mass. 3. Periaortic adenopathy without pelvic adenopathy. 4. There are some nodes in the inguinal region, moderate pelvic ascites. 5. There is a neobladder without ileostomy 6. Bony metastatic disease at L1 and L5 and possibly the left sacrum with degenerative changes at both hips. Signed by Anup Gipson MD 12/05/2016 06:47 P
[2016-12-05] MEDS: NORCO, ANEXSIA 5/325MG TABLET (HYDROcodone/ACETAMINOPHEN) PO PRN (19:57)
[2016-12-05] MEDS: NS 1,000 ML IV SCH (20:57)
[2016-12-05 21:00] VITALS: BP 97/56
--- NOTE | 2016-12-05 21:11 | PHACANCOPD ---
PHARMACY VANCOMYCIN DOSING Pt Demographics Demographics Patient Age:56 , Weight: , Gender: male Adjusted Body Weight Date: 12/05/16, Adjusted Body Weight: [72] Kg Events Past 24 Hours Events Past 24 Hours: NO: Change in CrCl, Dialysis, Diuretic Therapy, Elevation in WBC, Fever, Other, Pending Diagnostics, Pending Procedures Vancomycin Vancomycin Target Ranges: 15-20 mcg/ml Vancomycin Load Y/N: Yes Load Dose Date Time Vancomycin Load Dose: 1500MG Date: 12-05 Time: 2300 Vancomycin Dose Date: 12/05/16. Current Vancomycin Dose: [1000MG Q24H] Intermittent Dosing?: No Labs Labs Item Value Date Time White Blood Count 33.0 K/mm3 *H 12/05/16 1523 Creatinine 2.53 MG/DL H 12/05/16 1523 Vital Signs Label Value Date Time Patient Temperature 97.8 degrees F 12/05/16 1957 Micro Microbiology 12/05/16 Blood Culture, Received Pending 12/05/16 Blood Culture, Received Pending 12/05/16 Influenza Virus Type A Antigen - Final, Complete 12/05/16 Influenza Virus Type B Antigen - Final, Complete 12/05/16 Respiratory Virus Panel (PCR) (DERRICK) - Final, Complete Creatinine Clearance Date:12/05/16. Creatinine Clearance: [32]. Pending Labs Trough 03- @2100 Assessment and Plan Maintaining Current Dose?: Yes Reason for dose change: No Dose Change Pharmacist Note Pharmacist Note Date: 12/05/16. Pharmacist note:Dosed 1000mg q24h with a trough ordered for @2100. will continue to monitor and make adjustments as needed. HILDA DUQUE PHARMACY Dec 05, 2016 21:11
--- NOTE | 2016-12-05 21:17 | HPE ---
DATE OF ADMISSION: 12/05/2016 PRIMARY CARE PROVIDER: Martínez Edwards MD REASON FOR ADMISSION: Abnormal labs. HISTORY OF PRESENT ILLNESS: The patient is a 56-year-old male with past medical history significant for bladder cancer, high grade carcinoma with extensive metastasis, hypertension, hyperlipidemia, obstructive pulmonary disease, recent admission for sepsis, presented to the emergency room after he was instructed to do so by his primary care provider. He was in the office earlier today, had blood work done. WBC was found to be 28,000. He was sent to the emergency room. The patient's inflammatory markers were elevated. However, he denies any specific complaints. He states she has just been feeling tired. Denies any fevers or chills at home. The patient states he has been having a productive cough but it is chronic in nature. Denies any abdominal pain. Denies any nausea or vomiting. Denies any diarrhea; states he actually is normally constipated. The patient was found to be slightly hypotensive in the emergency room with a systolic blood pressure of 90 over diastolic blood pressure of 53. He was given 2300 mL of fluid in the emergency room. He was found to have elevated lactic acid of 12.4. Blood cultures were obtained as well as respiratory panel and influenza screen, all of which were negative. Blood cultures are pending. REVIEW OF SYSTEMS: Review of systems obtained, all which is negative except for those mentioned above. PAST MEDICAL HISTORY: Significant for vocal cord cancer diagnosed in 2013, bladder cancer, high-grade with metastasis. The patient is still undergoing chemotherapy in [place], Dr. Morel at [facility] Hematology/Oncology. The patient has history of hypertension, hyperlipidemia and chronic obstructive pulmonary disease (COPD). PAST SURGICAL HISTORY: Tracheostomy in 2014, vocal cord biopsy and surgery in 2013, 2015, radical cystoprostatectomy with elvis-bladder creation 2016. Knee surgeries. ALLERGIES: No known drug allergies. HOME MEDICATIONS: - Compazine eye drops - hydrocodone - Zofran - promethazine SOCIAL HISTORY: Patient is an ex-smoker, denies alcohol or recreational drugs. FAMILY HISTORY: Noncontributory. PHYSICAL EXAMINATION: Blood pressure right now is 103/58, respiratory rate 18, pulse 94, temperature 97.4, pulse oximetry 99% on room air. HEENT: Pupils equal round reactive light and accommodation. Neck: The patient has tracheostomy in place. Lungs: Clear to auscultation bilaterally. Abdomen: Soft, nontender. Extremities: Trace edema bilaterally. Cardiac: Regular rate and rhythm. Neuro: Cranial nerves II-XII grossly intact. LABORATORY FINDINGS: WBC 33, hemoglobin 8.2, hematocrit 29, platelet count 63, neutrophils 78, bands 10. Sodium 134, potassium 6, BUN 64, creatinine 2.53, lactic acid 12.4, C-reactive protein 30.8, troponin less than 0.02, albumin 6.3. Abdominal CT was ordered in the emergency room, which showed generalized ascites, moderate volume over all four quadrants, significant metastatic disease throughout the liver with hepatomegaly involving all lobes. Periaortic adenopathy. Some nodes in the inguinal region, moderate pelvic ascites. Bony metastasis at L1 and L5. CT of the chest was also done showing minor fibroatelectatic change, bronchiectasis in the lung without any acute infiltrate or mass, adenopathy and no perivascular space, up to 13 mm with subcentimeter lymph nodes. Destructive changes developed in T11. Inferior compression of the endplate deformity of T8. Suspected destructive lesion that may reflect metastatic disease. Diffuse metastatic disease of the liver. ASSESSMENT/PLAN 1. Elevated inflammatory markers, unknown origin; may be secondary to infection versus inflammation. We will restart patient on meropenem and vancomycin at this time. Blood cultures are pending as well as urine cultures. Influenza screen was negative, respiratory panel was negative. 2. History of metastatic cancer. The patient goes to Hematology/Oncology at [facility]. He has got metastatic bladder cancer with mets to the lymph node and liver as well as bony metastasis. Hospice was discussed with the patient who stated that he does not feel like he is ready for Hospice yet and he wants to continue with treatment, stating that if he elects for Hospice, he will no longer be able to have any chemotherapy which he still wants. 3. Acute on chronic kidney disease, likely secondary to dehydration. The patient received 2 liters of fluid in the emergency room. Will continue IV fluids. 4. Hyperkalemia, may be secondary to kidney disease. We will repeat levels. 5. Pancytopenia, likely secondary to chemotherapy. 6. History of hypertension. Patient is currently hypotensive. He is not on any medication. We will not initiate any medications at this time. 7. History of COPD. The patient does not appear to be short of breath. He is satting 99% on room air. 8. Deep venous thrombosis (DVT) prophylaxis. Sequential compression devices (SCDs) while in bed. The patient was signed out to Dr. Edwards.
[2016-12-05] MEDS: MORPHINE 30 MG SA TAB PO SCH ×2 (21:57→22:53)
[2016-12-05] MEDS: VANCOMYCIN HCL 1,000 MG, VIAL MATE ADAPTER 1 EACH in D5W 250 ML IV SCH (21:57)
[2016-12-05] MEDS: SENNA 8.6 MG TAB (SENOKOT) PO SCH (21:57)
[2016-12-05 22:00] VITALS: BP 89/56
[2016-12-05] MEDS ORDERED: VANCOMYCIN HCL 500 MG in D5W MINI-BAG PLUS 100 ML IV ONE (23:00)
[2016-12-05] MEDS ORDERED: INFLUENZA QUADRIVALENT PF VACCINE 0.5ML SYRINGE/VIAL (90686) IM SCH (23:00)
[2016-12-06] VITALS (7 sets, daily range): BP systolic 92–111; BP diastolic 53–60
[2016-12-06] MEDS: MEROPENEM INJ 1 GM in D5W MINI-BAG PLUS 100 ML IV SCH ×2 (01:00→12:18)
[2016-12-06] MEDS: NORCO, ANEXSIA 5/325MG TABLET (HYDROcodone/ACETAMINOPHEN) PO PRN (02:55)
[2016-12-06] MEDS ORDERED: SOD POLYSTYRENE SULFONATE SUSP 15 GM/60 ML UD PO ONE ×3 (06:15→13:15)
[2016-12-06] MEDS ORDERED: NS 500 ML IV ONE ×4 (08:15→13:15)
[2016-12-06] MEDS: MORPHINE 30 MG SA TAB PO SCH ×2 (09:45→21:22)
[2016-12-06] MEDS: NS 1,000 ML IV SCH ×3 (09:45→21:19)
[2016-12-06] MEDS: NICOTINE 14 MG/24 HR TRANSDERMAL TD SCH (09:45)
--- NOTE | 2016-12-06 10:08 | IPNPDOC ---
Subjective Date Seen The patient was seen on 12/06/16. Subjective Chief Complaint/HPI The patient is a 56-year-old male admitted with a reason for visit of Sepsis. General: Reports: Malaise, Denies: Chills Pulmonary: Denies: Cough, Dyspnea Cardiovascular: Denies: Chest Pain Gastrointestinal: Reports: Abdominal Pain (especially right upper quadrant, has been present for several weeks.) Genitourinary: Reports: Other Symptoms (occasional mucus in urine), Denies: Dysuria, Frequency Hematologic: Denies: Bruising, Purpura Endocrine: Denies: Polydipsia Objective Physical Examination General Exam: Positive: Other (dozing easily but alerts to verbal stimulation) , Negative: No Acute Distress ENT Exam: Positive: Other ENT (patches of white round lesions, c/w thrush) Heart Exam: Positive: Normal S1, Normal S2, Regular Rhythm, Tachycardic, Negative: Murmurs Abdomen Exam: Positive: Tenderness (very tender RUQ) Extremity Exam: Negative: Edema Skin Exam: Negative: Rash Neuro Exam: Positive: Other (No deficit noted, gait not tested) Assessment /Plan Problems (1) Sepsis Status: Acute Response to Treatment: Improving Problem Specific Plan: Monitor Clinically, Repeat Labs Problem Text: low pressures, elevated white count, high lactic acid, improved but not normal. last lactic acid up to 5.3. new bolus of 500 cc NS started in ICU. had received 2230 ml in ER yesterday. creatinine improving. will discuss with purchasing expeditor. cultures pending and patient on empiric Rx with meropenem and vanco (2) Bladder cancer Status: Chronic Problem Specific Plan: Consult Specialist Problem Text: suspected source of liver mets, has had bladder reconstructed. (3) History of throat cancer Status: Chronic Problem Specific Plan: Consult Specialist Problem Text: Patient has mets to pharynx and has been receiving hyperbaric therapy at [facility]. He is supposed to have teeth removed soon. (4) Metastases to the liver Status: Chronic Response to Treatment: Worse Problem Specific Plan: Consult Specialist, Monitor Clinically, Repeat Labs Problem Text: Lot of pain. Possible worsening of Liver enzymes due to recent Opdivo, but more likely direct effect of disease. Not doing well with Opdivo, but has not been able to do q2 week dosing due to intercurrent illness (5) ARF (acute renal failure) Status: Acute Response to Treatment: Improving Problem Text: may be result of sepsis/hypotension. may be part of toxic effect of Opdivo. continue fluid resuscitation Plan/VTE VTE Prophylaxis Ordered?: Yes Plan/Urinary Catheter Reason for insertion/continuin: Critical Pt monitoring Plan Advance Directives: DNR Patient has low platelets and slightly elevated INR and extensive liver mets so will do mechanical measures only for DVT prophylaxis, due to perception of increased risk for bleeding. Disposition Prognosis is guarded. He hasn't yet responded to Opdivo so he may be ready to transition to palliative care. Contacted his Med Onc (Mr. Colón, [facility]) who has mostly been providing care who encourages him to call to discuss when he is ready. VS, I&O, 24H, Fishbone Vital Signs/I&O Vital Signs Date Time Temp Pulse Resp B/P Pulse Ox O2 Delivery O2 Flow Rate FiO2 12/06/16 05:00 105 19 97/58 91 Room Air 12/06/16 03:00 97.0 I&O- Last 24 Hours up to 6 AM 12/06/16 05:59 Intake Total 1210 ml Output Total 200 ml Balance 1010 ml Laboratory Data 24H LABS Laboratory Tests 2 12/05/16 15:23: Activated Partial Thromboplast Time 37.0, Aspartate Amino Transf (AST/SGOT) 406H , Alanine Aminotransferase (ALT/SGPT) 121H, Alkaline Phosphatase 876H, Total Bilirubin 0.8, Direct Bilirubin 0.5H, Albumin 1.4L, Albumin/Globulin Ratio 0.29L , Amylase Level 15L, Anion Gap 23H, Anisocytosis 1+, Band Neutrophils 10, C- Reactive Protein, Quantitative 30.80H, Calcium Level 8.5, Creatine Kinase MB < 1.0, Creatine Kinase MB Relative Index 0.35, Glomerular Filtration Rate 28.2L, Hypochromasia 1+, Lactic Acid (Sepsis) 12.4*H, Lymphocytes (Manual) 4L, Metamyelocytes 2H, Monocytes (Manual) 6, Neutrophils 78H, Nucleated Red Blood Cells 1H, Platelet Estimate DECREASED, Polychromasia 1+, Prothromb Time International Ratio 1.65, Prothrombin Time 19.6H, Total Creatine Kinase 285, Total Protein 6.3L, Troponin I < 0.02 12/05/16 16:20: Arterial Blood pH 7.236*L, Arterial Blood Partial Pressure CO2 31.1L, Arterial Blood Partial Pressure O2 70.3L, Arterial Blood Total CO2 13.9L, Arterial Blood HCO3 12.9L, Arterial Blood Base Excess -13.3L, Arterial Blood Oxygen Saturation 91.1L, Blood Gas Bicarbonate Standard 13.7L 12/05/16 19:45: Lactic Acid Followup at 4 Hours 6.6*H 12/05/16 22:01: Urine Amorphous Sediment SMALLH, Urine Appearance CLOUDYH, Urine Color SHARMILA, Urine pH 6.0, Urine Specific [place] 1.014, Urine Protein 2+H, Urine Glucose (UA ) NEGATIVE, Urine Ketones NEGATIVE, Urine Urobilinogen 0.2, Urine Bilirubin NEGATIVE, Urine Leukocyte Esterase TRACEH, Urine Bacteria (Auto) 3+H, Urine Blood 1+H, Urine Calcium Carbonate Cryst(Auto) , Urine Calcium Oxalate Cryst ( Auto) , Urine Calcium Phosphate Greta (Auto) , Urine Cellular Casts , Urine Cystine Crystals , Urine Granular Casts (Auto) , Urine Hyaline Casts (Auto) 0, Urine Leucine Crystals , Urine Mucus (Auto) MODERATE, Urine Nitrite NEGATIVE, Urine Oval Fat Bodies (Auto) , Urine RBC (Auto) 38H, Urine Renal Epithelial Cells , Urine Sperm (Auto) , Urine Squamous Epithelial Cells 1, Urine Transitional Epithelial Cells , Urine Trichomonas (Auto) , Urine Triple Phosphate Cryst (Auto) , Urine Tyrosine Crystals , Urine Uric Acid Crystals ( Auto) , Urine WBC (Auto) 130H, Urine Waxy Casts (Auto) , Urine Yeast-Like Cells (Auto) 12/06/16 02:12: Lactic Acid (Sepsis) 5.0*H 12/06/16 05:12: Blood Urea Nitrogen 64H, Creatinine 2.43H, Sodium Level 134L, Potassium Level 6.5*H, Chloride Level 103, Carbon Dioxide Level 20L, Calcium Level 7.6L, Aspartate Amino Transf (AST/SGOT) 343H, Alanine Aminotransferase (ALT/SGPT) 115H , Alkaline Phosphatase 835H, Total Bilirubin 0.8, Total Protein 5.9L, Albumin 1.3L, Albumin/Globulin Ratio 0.28L, Anion Gap 11, Anisocytosis 1+, Band Neutrophils 4, Eosinophils (Manual) 1, Glomerular Filtration Rate 29.5L, Hypochromasia 1+, Lymphocytes (Manual) 2L, Monocytes (Manual) 6, Neutrophils 87H , Platelet Estimate DECREASED 12/06/16 07:48: Lactic Acid (Sepsis) 5.3*H CBC/BMP Laboratory Tests 12/05/16 15:23 Red Blood Count 2.97 L, Mean Corpuscular Volume 97.7 H, Mean Corpuscular Hemoglobin 27.7, Mean Corpuscular Hemoglobin Concent 28.4 L, Red Cell Distribution Width 17.3 H 12/05/16 21:25 12/06/16 02:12 12/06/16 05:12 Red Blood Count 3.13 L, Mean Corpuscular Volume 93.1, Mean Corpuscular Hemoglobin 27.0, Mean Corpuscular Hemoglobin Concent 29.0 L, Red Cell Distribution Width 17.4 H, Calcium Level 7.6 L, Aspartate Amino Transf (AST/SGOT ) 343 H, Alanine Aminotransferase (ALT/SGPT) 115 H, Alkaline Phosphatase 835 H, Total Bilirubin 0.8, Total Protein 5.9 L, Albumin 1.3 L 12/06/16 07:48 Microbiology Microbiology 12/05/16 Blood Culture, Received Pending 12/05/16 Blood Culture, Received Pending 12/05/16 Influenza Virus Type A Antigen - Final, Complete 12/05/16 Influenza Virus Type B Antigen - Final, Complete 12/05/16 Respiratory Virus Panel (PCR) (DERRICK) - Final, Complete 12/05/16 Urine Culture, Received Pending Ruel Prince MD Dec 06, 2016 10:08
[2016-12-06] MEDS ORDERED: FLUCONAZOLE 100 MG TAB PO ONE (16:45)
--- NOTE | 2016-12-06 18:24 | ECGEPIP ---
Stationary ECG Study [facility] Test Date: 2016-12-06 Pat Name: LUCINDA PURCELL Department: Room: [place] [address] Gender: M Chemical Manager: WILLIAM : 1960 Requested By: JOSETTE LEESI Order Number: [id number] Reading MD: Jonathan Abraham Measurements Intervals [place] Rate: 99 P: 38 PA: 150 QRS: 26 QRSD: 110 T: 44 QT: 352 QTc: 452 Interpretive Statements SINUS RHYTHM INCOMPLETE RIGHT BUNDLE BRANCH BLOCK COMPARED TO THE LAST 4 TRACINGS IN THE SYSTEM, NO SIGNIFICANT CHANGES Electronically Signed On 12-06-2016 18:24:15 EDT by Jonathan Abraham
--- NOTE | 2016-12-06 18:41 | ECGEPIP ---
Stationary ECG Study [facility] Test Date: 2016-12-06 Pat Name: LUCINDA PURCELL Department: Room: [place] [address] Gender: M Sodder: TOMASA : 1960 Requested By: Ruel Mcgowan Order Number: [id number] Reading MD: Jonathan Abraham Measurements Intervals [place] Rate: 93 P: 25 [place]: 152 QRS: 17 QRSD: 93 T: 45 QT: 361 QTc: 449 Interpretive Statements SINUS RHYTHM COMPARED TO THE LAST 2 TRACINGS IN THE SYSTEM, THERE IS NOW NO DEFINITIVE MANIFESTATION OF A RIGHT BUNDLE BRANCH BLOCK PATTERN Electronically Signed On 12-06-2016 18:40:54 EDT by Jonathan Abraham
[2016-12-06] MEDS: SENNA 8.6 MG TAB (SENOKOT) PO SCH ×2 (21:00→21:21)
[2016-12-06] MEDS: VANCOMYCIN HCL 1,000 MG, VIAL MATE ADAPTER 1 EACH in D5W 250 ML IV SCH (21:22)
[2016-12-07] VITALS: BP 101/66
[2016-12-07] MEDS: MEROPENEM INJ 1 GM in D5W MINI-BAG PLUS 100 ML IV SCH ×3 (00:09→23:05)
[2016-12-07] MEDS: NORCO, ANEXSIA 5/325MG TABLET (HYDROcodone/ACETAMINOPHEN) PO PRN ×2 (02:43→16:26)
[2016-12-07 04:00] VITALS: BP 104/60
[2016-12-07] MEDS: MAALOX 30 ML SUSP *UDC PO PRN (05:35)
--- NOTE | 2016-12-07 06:30 | REPUSA ---
CLINICAL HISTORY: Abdominal pain. TECHNIQUE: Multiple axial, sagittal and coronal CT images were obtained through the abdomen and pelvi s without administration of oral or IV contrast material. COMMENTS: Comparison is made to the prior exam on 12/05/2016. The liver is moderately enlarged with multiple ill-defined hypodense lesions the largest measuring 4. 7 cm. There is no intra or extrahepatic biliary ductal dilatation. The spleen is normal. The gallbladder is diffusely thickened. The pancreas is of normal contour and attenuation characteris tics. There is no evidence of adrenal mass. Significant food residue in the distended stomach. The kidneys are normal in size, shape and configuration. No renal or ureteral calculi are identified. There is no hydroureter or hydronephrosis. There is no evidence for appendicitis. There is no bowel wall thickening. No evidence for small or la rge bowel obstruction. There is no evidence of intrinsic or extrinsic bladder mass. Increased ascites. Diffuse thickening of the wall of the bladder. Images of the lung bases show no evidence of pleural or parenchymal mass. Minimal pleural effusions. Bilateral basilar atelectatic airspace disease of the lower lobes. Multilevel degenerative changes are seen involving the thoracolumbar spine. Scattered calcifications are seen involving the aorta and major branches compatible with atherosclero sis. Unchanged fat containing inguinal hernias without incarceration. Free fluid is identified in the left inguinal hernia. Unchanged heterogeneous lytic bony lesions. Unchanged heterogeneous density of the bones. IMPRESSION: Parenchymal liver disease. Infiltrative neoplastic disease. This has progressed. Increased ascites. Diffuse thickening of the wall of the bladder. Increased mesenteric congestion and nodularity. Unchanged heterogeneous skeletal lesions. Thank you for your kind referral of this patient.
--- NOTE | 2016-12-07 07:43 | REP ---
Portable chest, single AP view, the patient semi upright: Comparison is 2016. The endotracheal tube and right IJ Xgqqon-V-[id number] are unchanged. Lung oliveira are clear. Cardiac size is normal. Impression: No significant interval change. Signed by Eric Dee MD 12/07/2016 07:35 A
[2016-12-07 08:00] VITALS: BP 109/60
[2016-12-07] MEDS: NICOTINE 14 MG/24 HR TRANSDERMAL TD SCH (08:43)
[2016-12-07] MEDS: MORPHINE 30 MG SA TAB PO SCH ×2 (08:44→21:55)
[2016-12-07] MEDS: FLUCONAZOLE 100 MG TAB PO SCH (08:45)
[2016-12-07] MEDS ORDERED: ENOXAPARIN 30 MG/0.3 ML SYR (J1650) SC SCH (09:00)
--- NOTE | 2016-12-07 10:16 | IPNPDOC ---
Subjective Date Seen The patient was seen on 12/07/16. Subjective Chief Complaint/HPI The patient is a 56-year-old male admitted with a reason for visit of Sepsis. Constitutional: Reports: Malaise, Weakness Skin: Denies: Rash Pulmonary: Denies: Cough, Dyspnea Cardiovascular: Denies: Chest Pain Gastrointestinal: Reports: Abdominal Pain, Other Symptoms (distention and increased pain associated) Genitourinary: Denies: Dysuria, Frequency Hematologic: Denies: Bleeding Excessively, Bruising Neurological: Denies: Numbness, Seizures Objective Physical Examination General Exam: Positive: Mild Distress, Other (dozing easily but alerts to verbal stimulation) Eye Exam: Positive: Other Eye Symptoms (meiosis), Negative: Ptosis, Sclera icteric ENT Exam: Positive: Other ENT (patches of white round lesions, c/w thrush) Neck Exam: Negative: thyromegaly Heart Exam: Positive: Normal S1, Normal S2, Regular Rhythm, Tachycardic, Negative: Murmurs Abdomen Exam: Positive: BS Hypoactive, Tenderness (very tender RUQ) Extremity Exam: Positive: Edema Skin Exam: Negative: Rash Neuro Exam: Positive: Other (No deficit noted, gait not tested) Assessment /Plan Problems (1) Sepsis Status: Acute Response to Treatment: Improving Problem Specific Plan: Monitor Clinically, Repeat Labs Problem Text: 12/07: pressures better, heart rate better, organ dysfunction improved. urine culture negative, blood culture negative. low pressures, elevated white count, high lactic acid, improved but not normal. last lactic acid up to 5.3. new bolus of 500 cc NS started in ICU. had received 2230 ml in ER yesterday. creatinine improving. will discuss with head sulfide operator. cultures pending and patient on empiric Rx with meropenem and vanco (2) Bladder cancer Status: Chronic Problem Specific Plan: Consult Specialist Problem Text: suspected source of liver mets, has had bladder reconstructed. 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 He is supposed to have teeth removed soon. Pain from mets to liver remains significant problem for him. (4) Metastases to the liver Status: Chronic Response to Treatment: Worse Problem Specific Plan: Consult Specialist, Monitor Clinically, Repeat Labs Problem Text: Lot of pain. Possible worsening of Liver enzymes due to recent Opdivo, but more likely direct effect of disease. Not doing well with Opdivo, but has not been able to do q2 week dosing due to intercurrent illness Ascites increased since fluid resuscitation. Will request paracentesis for symptom improvement. (5) ARF (acute renal failure) Status: Acute Response to Treatment: Improving (Creatinine better, no hydronephrosis on CT, making urine fairly well.) Problem Text: may be result of sepsis/hypotension. may be part of toxic effect of Opdivo. continue fluid resuscitation Plan/VTE VTE Prophylaxis Ordered?: Yes Plan/Urinary Catheter Reason for insertion/continuin: Critical Pt monitoring Plan Advance Directives: DNR Suspect he has reached the end of opportunities to treat the underlying malignancy. encouraged patient to contact his medical oncologist when he is able. VS, I&O[facility] Vital Signs/I&O Vital Signs Date Time Temp Pulse Resp B/P Pulse Ox O2 Delivery O2 Flow Rate FiO2 12/07/16 08:44 18 95 12/07/16 08:00 97.5 92 109/60 12/07/16 04:00 Room Air I&O- Last 24 Hours up to 6 AM 12/07/16 06:00 Intake Total 3765 ml Output Total 575 ml Balance 3190 ml Laboratory Data 24H LABS Laboratory Tests 2 12/06/16 12:04: Anion Gap 13, Blood Urea Nitrogen 66H, Creatinine 2.48H, Sodium Level 134L, Potassium Level 6.5*H, Chloride Level 104, Carbon Dioxide Level 17L, Calcium Level 7.1L, Glomerular Filtration Rate 28.8L, Lactic Acid Followup at 4 Hours 4.8*H 12/06/16 17:03: Bedside Glucose (Misc Panel) 147H 12/06/16 18:37: Anion Gap 17H, Blood Urea Nitrogen 64H, Creatinine 2.45H, Sodium Level 137, Potassium Level 5.9H, Chloride Level 105, Carbon Dioxide Level 15L, Calcium Level 7.9L, Glomerular Filtration Rate 29.3L 12/07/16 05:08: Anion Gap 14, Blood Urea Nitrogen 55H, Creatinine 1.90H, Sodium Level 136, Potassium Level 5.2H, Chloride Level 104, Carbon Dioxide Level 18L, Calcium Level 7.1L, Glomerular Filtration Rate 39.2L, Aspartate Amino Transf (AST/SGOT) 297H, Alanine Aminotransferase (ALT/SGPT) 112H, Alkaline Phosphatase 892H, Total Bilirubin 0.8, Total Protein 6.1L, Albumin 1.3L, Albumin/Globulin Ratio 0.27L, Anisocytosis 2+, White Blood Count 27.4H, Red Blood Count 3.32L, Hemoglobin 9.0L, Hematocrit 31.4L, Mean Corpuscular Volume 94.6, Mean Corpuscular Hemoglobin 27.1, Mean Corpuscular Hemoglobin Concent 28.7L, Red Cell Distribution Width 17.8H, Platelet Count 70L, Neutrophils (%) (Auto) 93.6H , Lymphocytes (%) (Auto) 2.1L, Monocytes (%) (Auto) 2.6, Eosinophils (%) (Auto) 0.8, Basophils (%) (Auto) 0.3, Neutrophils # (Auto) 25.7H, Lymphocytes # (Auto) 0.6L, Monocytes # (Auto) 0.7, Eosinophils # (Auto) 0.2, Basophils # (Auto) 0.1, Hypochromasia 1+, Large Unclassified Cells # 0.2, Large Unclassified Cells % 0.6 , Platelet Estimate DECREASED CBC/BMP Laboratory Tests 12/06/16 12:04 Calcium Level 7.1 L 12/06/16 18:37 Calcium Level 7.9 L 12/07/16 05:08 Calcium Level 7.1 L, Aspartate Amino Transf (AST/SGOT) 297 H, Alanine Aminotransferase (ALT/SGPT) 112 H, Alkaline Phosphatase 892 H, Total Bilirubin 0.8, Total Protein 6.1 L, Albumin 1.3 L, Red Blood Count 3.32 L, Mean Corpuscular Volume 94.6, Mean Corpuscular Hemoglobin 27.1, Mean Corpuscular Hemoglobin Concent 28.7 L, Red Cell Distribution Width 17.8 H, Neutrophils (%) ( Auto) 93.6 H, Lymphocytes (%) (Auto) 2.1 L, Monocytes (%) (Auto) 2.6, Eosinophils (%) (Auto) 0.8, Basophils (%) (Auto) 0.3, Neutrophils # (Auto) 25.7 H, Lymphocytes # (Auto) 0.6 L, Monocytes # (Auto) 0.7, Eosinophils # (Auto) 0.2 , Basophils # (Auto) 0.1 Microbiology Microbiology 12/05/16 Blood Culture - Preliminary, Resulted No growth after 24 hours . All specim... 12/05/16 Blood Culture - Preliminary, Resulted No growth after 24 hours . All specim... 12/05/16 Influenza Virus Type A Antigen - Final, Complete 12/05/16 Influenza Virus Type B Antigen - Final, Complete 12/05/16 Respiratory Virus Panel (PCR) (DERRICK) - Final, Complete 12/05/16 Urine Culture - Final, Complete Ruel Prince MD Dec 07, 2016 10:16
[2016-12-07 12:00] VITALS: BP 109/55
[2016-12-07] MEDS: oxyCODONE 5MG TAB PO PRN ×2 (13:01→19:35)
--- NOTE | 2016-12-07 14:16 | REP ---
ULTRASOUND-GUIDED PARACENTESIS: The procedure was performed under the direct supervision of Dr. Williamson. The risks and benefits of the procedure were explained to the patient, and informed consent was obtained. The largest pocket of fluid was localized in the right flank using ultrasound guidance. The skin was prepped and draped in a sterile fashion. 1% lidocaine was used as a local anesthetic. A #8-Maori multi-sidehole catheter was inserted using trocar technique. 2700 mL of dark-yellow fluid was withdrawn and discarded. The patient tolerated the procedure well, and there were no immediate complications. Reviewed by DEVIN Mackenzie 12/07/2016 04:46 PEdited and Signed by Lonnie Williamson MD 12/07/2016 05:02 P
[2016-12-07 16:00] VITALS: BP 104/59
[2016-12-07] MEDS: ANALGESIC BALM CRM 120 GM TOP PRN (16:26)
[2016-12-07 20:00] VITALS: BP 105/64
[2016-12-07] MEDS: SENNA 8.6 MG TAB (SENOKOT) PO SCH (21:00)
[2016-12-07] MEDS: VANCOMYCIN HCL 1,000 MG, VIAL MATE ADAPTER 1 EACH in D5W 250 ML IV SCH (21:55)
--- NOTE | 2016-12-07 22:17 | PHACANCOPD ---
PHARMACY VANCOMYCIN DOSING Pt Demographics Demographics Patient Age:56 , Weight:77.400 , Gender: male Adjusted Body Weight Date: 12/05/16, Adjusted Body Weight: [72] Kg Events Past 24 Hours Events Past 24 Hours: NO: Change in CrCl, Dialysis, Diuretic Therapy, Elevation in WBC, Fever, Other, Pending Diagnostics, Pending Procedures Vancomycin Vancomycin Target Ranges: 15-20 mcg/ml Vancomycin Load Y/N: Yes Load Dose Date Time Vancomycin Load Dose: 1500MG Date: 12-05 Time: 2300 Vancomycin Dose Date: 12/05/16. Current Vancomycin Dose: [1000MG Q18H] Intermittent Dosing?: No Labs Labs Item Value Date Time White Blood Count 27.4 K/mm3 H 12/07/16 0508 Creatinine 1.90 MG/DL H 12/07/16 0508 Vancomycin Level Trough 14.4 UG/ML 12/07/16 2107 Vital Signs Label Value Date Time Patient Temperature 98.1 degrees F 12/07/16 2000 Temperature Source Skin 12/07/161999 Micro Microbiology 12/05/16 Blood Culture - Preliminary, Resulted No Growth after 48 hours. All Specime... 12/05/16 Blood Culture - Preliminary, Resulted No Growth after 48 hours. All Specime... 12/05/16 Influenza Virus Type A Antigen - Final, Complete 12/05/16 Influenza Virus Type B Antigen - Final, Complete 12/05/16 Respiratory Virus Panel (PCR) (DERRICK) - Final, Complete 12/05/16 Urine Culture - Final, Complete Creatinine Clearance Date:12/09/16. Creatinine Clearance: [43.4]. Pending Labs Trough 03- @1000 Assessment and Plan Maintaining Current Dose?: No Reason for dose change: Trough too low Pharmacist Note Pharmacist Note Date: 12/07/16. Pharmacist note:Trough of 14.4 is slightly below target range. CrCl is improving and will likely cause the future troughs to drop. Will reduce interval to q18h with a trough scheduled for 03- @1000. Will continue to monitor and make adjustments as needed. HILDA DUQUE PHARMACY Dec 07, 2016 22:17
[2016-12-08] VITALS: BP 92/55
[2016-12-08] MEDS: oxyCODONE 5MG TAB PO PRN ×4 (03:26→19:39)
[2016-12-08 04:00] VITALS: BP 106/56
[2016-12-08] MEDS: NORCO, ANEXSIA 5/325MG TABLET (HYDROcodone/ACETAMINOPHEN) PO PRN (07:31)
[2016-12-08 08:00] VITALS: BP 119/74
[2016-12-08] MEDS: NICOTINE 14 MG/24 HR TRANSDERMAL TD SCH (08:12)
[2016-12-08] MEDS: FLUCONAZOLE 100 MG TAB PO SCH (08:13)
[2016-12-08] MEDS: MORPHINE 30 MG SA TAB PO SCH (08:13)
--- NOTE | 2016-12-08 08:52 | IPNPDOC ---
Assessment/Plan Date Seen The patient was seen on 12/08/16. Problems (1) Sepsis Status: Acute (2) Bladder cancer Status: Chronic (3) History of throat cancer Status: Chronic (4) Metastases to the liver Status: Chronic (5) ARF (acute renal failure) Status: Acute Plan/VTE VTE Prophylaxis Ordered?: Yes Plan/Urinary Catheter Reason for insertion/continuin: Critical Pt monitoring Plan Advance Directives: DNR Subjective Review oF Systems Chief Complaint The patient is a 56-year-old male admitted with a reason for visit of leukocytosis; metastatic laryngeal cancer; history of bladder cancer with neobladder. Voiding well. s/p Paracentesis (12/07/16) 2700cc (no culture sent). Comfortable. 97, 20, 106/56, 96.8f. Abdo: Benign. Urine culture/blood culture (12/05/16) negative. (12/07/16) Hg 8.5, wbc 24.7, Cr 2.0. CT (12/07/16) w/o IV ascites; metastatic cancer; normal . CXR () nil acute. A: Above. Leukocytosis? P: Check PVR. Antibiotics (Meropenem). Consider culture ascites fluid next paracentesis. Serial CBC/bmp for trend. Objective Physical Examination Heart Exam: Positive: Normal S1, Normal S2, Regular Rhythm, Tachycardic, Negative: Murmurs Vital Signs/I&O Vital Signs Date Time Temp Pulse Resp B/P Pulse Ox O2 Delivery O2 Flow Rate FiO2 12/08/16 08:13 18 12/08/16 04:20 95 Room Air 12/08/16 04:00 96.8 97 106/56 I&O- Last 24 Hours up to 6 AM 12/08/16 06:00 Intake Total 1270 ml Output Total 675 ml Balance 595 ml Laboratory Data Labs 24H Laboratory Tests 2 12/07/16 21:07: Vancomycin Level Trough 14.4 12/08/16 05:14: Blood Urea Nitrogen 58H, Creatinine 2.03H, Sodium Level 137, Potassium Level 5.4H, Chloride Level 106, Carbon Dioxide Level 16L, Calcium Level 6.7L, Aspartate Amino Transf (AST/SGOT) 703H, Alanine Aminotransferase (ALT/SGPT) 175H , Alkaline Phosphatase 1006H, Total Bilirubin 0.7, Total Protein 5.0L, Albumin 1.2L, Albumin/Globulin Ratio 0.32L, Anion Gap 15, Anisocytosis 2+, Eosinophils ( Manual) 1, Glomerular Filtration Rate 36.3L, Hypochromasia 3+, Metamyelocytes 2H , Monocytes (Manual) 2, Neutrophils 95H, Platelet Estimate MARKED DECREASE CBC/BMP Laboratory Tests 12/08/16 05:14 Calcium Level 6.7 L, Aspartate Amino Transf (AST/SGOT) 703 H, Alanine Aminotransferase (ALT/SGPT) 175 H, Alkaline Phosphatase 1006 H, Total Bilirubin 0.7, Total Protein 5.0 L, Albumin 1.2 L, Red Blood Count 3.03 L, Mean Corpuscular Volume 94.0, Mean Corpuscular Hemoglobin 28.0, Mean Corpuscular Hemoglobin Concent 29.8 L, Red Cell Distribution Width 18.1 H Microbiology Microbiology 12/05/16 Blood Culture - Preliminary, Resulted No Growth after 48 hours. All Specime... 12/05/16 Blood Culture - Preliminary, Resulted No Growth after 48 hours. All Specime... 12/05/16 Influenza Virus Type A Antigen - Final, Complete 12/05/16 Influenza Virus Type B Antigen - Final, Complete 12/05/16 Respiratory Virus Panel (PCR) (DERRICK) - Final, Complete 12/05/16 Urine Culture - Final, Complete KAI HEARD MD Dec 08, 2016 08:52
[2016-12-08] MEDS: MEROPENEM INJ 1 GM in D5W MINI-BAG PLUS 100 ML IV SCH (11:25)
[2016-12-08 12:16] VITALS: BP 107/57
[2016-12-08] MEDS ORDERED: FENTANYL REMOVAL DOCUMENTATION MISC XX SCH (15:15)
[2016-12-08] MEDS: MORPHINE 2 MG/ML 1ML SYRINGE IV PRN (15:16)
[2016-12-08] MEDS: VANCOMYCIN HCL 1,000 MG, VIAL MATE ADAPTER 1 EACH in D5W 250 ML IV SCH (15:24)
[2016-12-08] MEDS: fentaNYL 12 MCG/HR PATCH TOP SCH (15:41)
[2016-12-08 16:00] VITALS: BP 104/63
[2016-12-08] MEDS ORDERED: fentaNYL 12 MCG/HR PATCH TOP SCH (17:00)
[2016-12-08 20:00] VITALS: BP 95/65
[2016-12-08] MEDS: SENNA 8.6 MG TAB (SENOKOT) PO SCH (21:03)
--- NOTE | 2016-12-08 23:58 | IPNPDOC ---
Subjective Date Seen The patient was seen on 12/08/16. Subjective Chief Complaint/HPI The patient is a 56-year-old male admitted with a reason for visit of Sepsis. Events since last encounter Seen in ICU; communicates with whisper, writing, and gesture. Complains of chest discomfort, worse with palpation, that feels similar to having been punched. His abdominal discomfort, which was significant yesterday, has resolved. Constitutional: Reports: Malaise, Denies: Chills, Fever Pulmonary: Reports: Cough, Denies: Dyspnea Cardiovascular: Reports: Chest Pain, Denies: Palpitations Gastrointestinal: Denies: Abdominal Pain, Constipation, Diarrhea, Nausea, Vomiting Psych: Reports: Mood Normal Objective Physical Examination General Exam: Positive: Mild Distress, Other (dozing easily but alerts to verbal stimulation) Eye Exam: Positive: Other Eye Symptoms (meiosis), Negative: Ptosis, Sclera icteric ENT Exam: Positive: Other ENT (patches of white round lesions, c/w thrush) Neck Exam: Negative: thyromegaly Heart Exam: Positive: Normal S1, Normal S2, Regular Rhythm, Tachycardic, Negative: Murmurs Abdomen Exam: Positive: BS Hypoactive, Negative: Tenderness Extremity Exam: Positive: Edema Skin Exam: Negative: Rash Neuro Exam: Positive: Other (No deficit noted, gait not tested) Assessment /Plan Problems (1) Sepsis Status: Acute Response to Treatment: Improving Problem Specific Plan: Monitor Clinically, Repeat Labs Problem Text: 12/08: still with leukocytosis, but improving; renal function similar to yesterday. 12/07: pressures better, heart rate better, organ dysfunction improved. urine culture negative, blood culture negative. low pressures, elevated white count, high lactic acid, improved but not normal. last lactic acid up to 5.3. new bolus of 500 cc NS started in ICU. had received 2230 ml in ER yesterday. creatinine improving. will discuss with [employer] administrator. cultures pending and patient on empiric Rx with meropenem and vanco (2) Bladder cancer Status: Chronic Problem Specific Plan: Consult Specialist Problem Text: suspected source of liver mets, has had bladder reconstructed. Known bony mets, and this is likely the source of his chest discomfort (quite tender to palpation.) Pain control has been an issue today, and I switched to a fentanyl patch. (Low dose, as diflucan affects fentanyl metabolism.) He has IV morphine for breakthrough pain. 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 He is supposed to have teeth removed soon. Pain from mets to liver remains significant problem for him. (4) Metastases to the liver Status: Chronic Response to Treatment: Worse Problem Specific Plan: Consult Specialist, Monitor Clinically, Repeat Labs Problem Text: 12/08 -- abdominal discomfort improved today, per patient; s/p paracentesis Lot of pain. Possible worsening of Liver enzymes due to recent Opdivo, but more likely direct effect of disease. Not doing well with Opdivo, but has not been able to do q2 week dosing due to intercurrent illness Ascites increased since fluid resuscitation. Will request paracentesis for symptom improvement. (5) ARF (acute renal failure) Status: Acute Response to Treatment: Improving (Creatinine better, no hydronephrosis on CT, making urine fairly well.) Problem Text: 12/08 -- similar to yesterday may be result of sepsis/hypotension. may be part of toxic effect of Opdivo. continue fluid resuscitation (6) Urinary retention Status: Acute Problem Text: Orders to bladder scan, and straight cath as necessary. We may need to ask urology to place a Cam. Plan/VTE VTE Prophylaxis Ordered?: Yes Plan/Urinary Catheter Reason for insertion/continuin: Critical Pt monitoring Plan Advance Directives: DNR VS, I&O, 24H, [facility] Vital Signs/I&O Vital Signs Date Time Temp Pulse Resp B/P Pulse Ox O2 Delivery O2 Flow Rate FiO2 12/08/16 20:09 17 12/08/16 20:00 Room Air 12/08/16 20:00 97.2 94 95/65 95 I&O- Last 24 Hours up to 6 AM 12/08/16 05:59 Intake Total 1270 ml Output Total 900 ml Balance 370 ml Laboratory Data 24H LABS Laboratory Tests 2 12/08/16 05:14: Blood Urea Nitrogen 58H, Creatinine 2.03H, Sodium Level 137, Potassium Level 5.4H, Chloride Level 106, Carbon Dioxide Level 16L, Calcium Level 6.7L, Aspartate Amino Transf (AST/SGOT) 703H, Alanine Aminotransferase (ALT/SGPT) 175H , Alkaline Phosphatase 1006H, Total Bilirubin 0.7, Total Protein 5.0L, Albumin 1.2L, Albumin/Globulin Ratio 0.32L, Anion Gap 15, Anisocytosis 2+, Eosinophils ( Manual) 1, Glomerular Filtration Rate 36.3L, Hypochromasia 3+, Metamyelocytes 2H , Monocytes (Manual) 2, Neutrophils 95H, Platelet Estimate MARKED DECREASE CBC/BMP Laboratory Tests 12/08/16 05:14 Calcium Level 6.7 L, Aspartate Amino Transf (AST/SGOT) 703 H, Alanine Aminotransferase (ALT/SGPT) 175 H, Alkaline Phosphatase 1006 H, Total Bilirubin 0.7, Total Protein 5.0 L, Albumin 1.2 L, Red Blood Count 3.03 L, Mean Corpuscular Volume 94.0, Mean Corpuscular Hemoglobin 28.0, Mean Corpuscular Hemoglobin Concent 29.8 L, Red Cell Distribution Width 18.1 H Microbiology Microbiology 12/05/16 Blood Culture - Preliminary, Resulted No Growth after 72 hours. All specime... 12/05/16 Blood Culture - Preliminary, Resulted No Growth after 72 hours. All specime... 12/05/16 Influenza Virus Type A Antigen - Final, Complete 12/05/16 Influenza Virus Type B Antigen - Final, Complete 12/05/16 Respiratory Virus Panel (PCR) (DERRICK) - Final, Complete 12/05/16 Urine Culture - Final, Complete FRANK ABBOTT DO Dec 08, 2016 23:58
[2016-12-09] VITALS: BP 89/58
[2016-12-09] MEDS: MEROPENEM INJ 1 GM in D5W MINI-BAG PLUS 100 ML IV SCH ×2 (00:12→11:40)
[2016-12-09] MEDS: oxyCODONE 5MG TAB PO PRN ×3 (02:12→21:24)
[2016-12-09 04:00] VITALS: BP 95/58
[2016-12-09 08:00] VITALS: BP 92/54
[2016-12-09] MEDS: FLUCONAZOLE 100 MG TAB PO SCH (08:33)
[2016-12-09] MEDS: NICOTINE 14 MG/24 HR TRANSDERMAL TD SCH (08:33)
[2016-12-09] MEDS: ONDANSETRON 4 MG TAB (S0181) PO PRN (08:34)
[2016-12-09] MEDS: VANCOMYCIN HCL 1,000 MG, VIAL MATE ADAPTER 1 EACH in D5W 250 ML IV SCH (09:18)
[2016-12-09] MEDS ORDERED: SOD POLYSTYRENE SULFONATE SUSP 15 GM/60 ML UD PO ONE (10:00)
--- NOTE | 2016-12-09 10:21 | IPNPDOC ---
Assessment/Plan Date Seen The patient was seen on 12/09/16. Problems (1) Sepsis Status: Acute (2) Bladder cancer Status: Chronic (3) History of throat cancer Status: Chronic (4) Metastases to the liver Status: Chronic (5) ARF (acute renal failure) Status: Acute (6) Urinary retention Status: Acute Plan/VTE VTE Prophylaxis Ordered?: Yes Plan/Urinary Catheter Reason for insertion/continuin: Critical Pt monitoring Plan Advance Directives: DNR Subjective Review oF Systems Chief Complaint The patient is a 56-year-old male admitted with a reason for visit of leukocytosis; metastatic laryngeal cancer; history of bladder cancer with neobladder. Voiding well. PVR (12/08/16) 120cc. s/p Paracentesis (12/07/16) 2700cc (no culture sent). Analgesia controlled. DNR. Comfortable. 97, 17, 95/58, 98.9f. Abdo: Benign. Urine culture/blood culture (12/05/16) negative. Blood culture (12/09/16) pending. IV Vancomycin/Meropenem. (12/09/16) Hg 8.8, wbc 33.6 (increase), Cr 2.5 (rise). CT (12/07/16) w/o IV ascites; metastatic cancer; normal . CXR () nil acute. A: Above. Leukocytosis? P: Antibiotics (Meropenem/Vancomycin). Culture ascites fluid next paracentesis. Serial CBC/bmp for trend. Check blood culture. Objective Physical Examination Heart Exam: Positive: Normal S1, Normal S2, Regular Rhythm, Tachycardic, Negative: Murmurs Vital Signs/I&O Vital Signs Date Time Temp Pulse Resp B/P Pulse Ox O2 Delivery O2 Flow Rate FiO2 12/09/16 04:00 Room Air 12/09/16 04:00 98.9 97 17 95/58 94 I&O- Last 24 Hours up to 6 AM 12/09/16 06:00 Intake Total 2990 ml Output Total 520 ml Balance 2470 ml Laboratory Data Labs 24H Laboratory Tests 2 12/09/16 05:45: Blood Urea Nitrogen 63H, Creatinine 2.50H, Sodium Level 132L, Potassium Level 5.7H, Chloride Level 101, Carbon Dioxide Level 15L, Calcium Level 7.6L, Aspartate Amino Transf (AST/SGOT) 743H, Alanine Aminotransferase (ALT/SGPT) 185H , Alkaline Phosphatase 1246H, Total Bilirubin 0.9, Total Protein 6.1#L, Albumin 1.3L, Albumin/Globulin Ratio 0.27L, Anion Gap 16, Anisocytosis 2+, Glomerular Filtration Rate 28.6L, Hypochromasia 3+, Lymphocytes (Manual) 1L, Metamyelocytes 3H, Monocytes (Manual) 4, Myelocytes 1H, Neutrophils 90H, Nucleated Red Blood Cells 1H, Platelet Estimate DECREASED, Promyelocytes 1H CBC/BMP Laboratory Tests 12/09/16 05:45 Calcium Level 7.6 L, Aspartate Amino Transf (AST/SGOT) 743 H, Alanine Aminotransferase (ALT/SGPT) 185 H, Alkaline Phosphatase 1246 H, Total Bilirubin 0.9, Total Protein 6.1 #L, Albumin 1.3 L, Red Blood Count 3.22 L, Mean Corpuscular Volume 93.8, Mean Corpuscular Hemoglobin 27.3, Mean Corpuscular Hemoglobin Concent 29.1 L, Red Cell Distribution Width 18.8 H Microbiology Microbiology 12/09/16 Blood Culture, Received Pending 12/09/16 Blood Culture, Received Pending 12/05/16 Blood Culture - Preliminary, Resulted No Growth after 72 hours. All specime... 12/05/16 Blood Culture - Preliminary, Resulted No Growth after 72 hours. All specime... 12/05/16 Influenza Virus Type A Antigen - Final, Complete 12/05/16 Influenza Virus Type B Antigen - Final, Complete 12/05/16 Respiratory Virus Panel (PCR) (DERRICK) - Final, Complete 12/05/16 Urine Culture - Final, Complete KAI HEARD MD Dec 09, 2016 10:21
[2016-12-09 12:00] VITALS: BP 90/51
--- NOTE | 2016-12-09 12:07 | REP ---
Chest x-ray: Two views. History: Leukocytosis. Findings: There is discoid atelectasis in the right base and left base. A right-sided [id number] catheter is again noted along with tracheostomy tube. EKG electrodes are seen. No infiltrate is noted. Impression: Mild bibasilar plate-like atelectasis. No infiltrate seen. Signed by Lonnie Williamson MD 12/09/2016 01:14 P
--- NOTE | 2016-12-09 12:13 | REP ---
Limited abdominal sonography: History: Sepsis. Four-quadrant survey for ascites. The patient status post paracentesis on December 07, 2016. Findings: Four-quadrant abdominal survey confirms the presence of mild disc diffuse abdominal ascites. Right more prominent than left. Signed by Lonnie Williamson MD 12/09/2016 01:14 P
[2016-12-09 16:00] VITALS: BP 92/52
[2016-12-09] MEDS: PIPERACILLIN/TAZOBACTAM SOD 3.375 GM in D5W MINI-BAG PLUS 50 ML IV SCH ×2 (17:31→23:14)
[2016-12-09 20:00] VITALS: BP 100/58
[2016-12-09] MEDS: SENNA 8.6 MG TAB (SENOKOT) PO SCH (20:02)
[2016-12-10] VITALS (11 sets, daily range): BP systolic 78–98; BP diastolic 48–55
--- NOTE | 2016-12-10 00:16 | IPNPDOC ---
Subjective Date Seen The patient was seen on 12/09/16. Subjective Chief Complaint/HPI The patient is a 56-year-old male admitted with a reason for visit of Sepsis. Events since last encounter Increased WBCs, but patient state feeling pretty well, sitting on the edge of the bed and eating breakfast. Previous chest discomfort improved. He had been a bit nauseous early in the a.m. but after Zofran was feeling ready for breakfast. Constitutional: Denies: Chills, Fever Pulmonary: Reports: Cough, Denies: Dyspnea Cardiovascular: Reports: Chest Pain, Denies: Palpitations Gastrointestinal: Reports: Abdominal Pain, Nausea, Denies: Constipation, Diarrhea, Vomiting Genitourinary: Denies: Dysuria, Frequency, Incontinence Objective Physical Examination General Exam: Positive: Alert, Cooperative Eye Exam: Positive: Other Eye Symptoms (meiosis), Negative: Ptosis, Sclera icteric ENT Exam: Positive: Other ENT (patches of white round lesions, c/w thrush) Neck Exam: Negative: thyromegaly Heart Exam: Positive: Normal S1, Normal S2, Regular Rhythm, Negative: Murmurs Abdomen Exam: Positive: BS Hypoactive, Tenderness (diffuse) Extremity Exam: Positive: Edema Skin Exam: Negative: Rash Neuro Exam: Positive: Other (No deficit noted, gait not tested) Assessment /Plan Problems (1) Sepsis Status: Acute Problem Text: 12/09: WBCs significantly higher. Change antibiotics. UA and chest X ray ordered. Blood cultures pending. US ordered to evaluate for reaccumulation of ascites, and paracentesis with cultures and studies ordered. 12/08: still with leukocytosis, but improving; renal function similar to yesterday. 12/07: pressures better, heart rate better, organ dysfunction improved. urine culture negative, blood culture negative. low pressures, elevated white count, high lactic acid, improved but not normal. last lactic acid up to 5.3. new bolus of 500 cc NS started in ICU. had received 2230 ml in ER yesterday. creatinine improving. will discuss with lime filter operator. cultures pending and patient on empiric Rx with meropenem and vanco (2) Bladder cancer Status: Chronic Problem Text: suspected source of liver mets, has had bladder reconstructed. Known bony mets, and this is likely the source of his chest discomfort (quite tender to palpation.) Pain control has been an issue today, and I switched to a fentanyl patch. (Low dose, as diflucan affects fentanyl metabolism.) He has IV morphine for breakthrough pain. 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 He is supposed to have teeth removed soon. Pain from mets to liver remains significant problem for him. (4) Metastases to the liver Status: Chronic Problem Text: 12/09 -- ascites reaccumulating; paracentesis order (diagnostic, not sufficient accumulation to be necessary if not concerned re: potential infection.) 12/08 -- abdominal discomfort improved today, per patient; s/p paracentesis Lot of pain. Possible worsening of Liver enzymes due to recent Opdivo, but more likely direct effect of disease. Not doing well with Opdivo, but has not been able to do q2 week dosing due to intercurrent illness Ascites increased since fluid resuscitation. Will request paracentesis for symptom improvement. (5) ARF (acute renal failure) Status: Acute Problem Text: 12/08 -- similar to yesterday may be result of sepsis/hypotension. may be part of toxic effect of Opdivo. continue fluid resuscitation (6) Urinary retention Status: Acute Problem Text: Orders to bladder scan, and straight cath as necessary. We may need to ask urology to place a Cam. Plan/VTE VTE Prophylaxis Ordered?: Yes Plan/Urinary Catheter Reason for insertion/continuin: Critical Pt monitoring Plan Advance Directives: DNR VS, I&O, 24H, Fishbone Vital Signs/I&O Vital Signs Date Time Temp Pulse Resp B/P Pulse Ox O2 Delivery O2 Flow Rate FiO2 12/09/16 21:54 20 High Flow Cannula 10.0 12/09/16 20:00 97.9 104 100/58 94 I&O- Last 24 Hours up to 6 AM 12/10/16 06:00 Intake Total 1020 ml Output Total 450 ml Balance 570 ml Laboratory Data 24H LABS Laboratory Tests 2 12/09/16 05:45: Blood Urea Nitrogen 63H, Creatinine 2.50H, Sodium Level 132L, Potassium Level 5.7H, Chloride Level 101, Carbon Dioxide Level 15L, Calcium Level 7.6L, Aspartate Amino Transf (AST/SGOT) 743H, Alanine Aminotransferase (ALT/SGPT) 185H , Alkaline Phosphatase 1246H, Total Bilirubin 0.9, Total Protein 6.1#L, Albumin 1.3L, Albumin/Globulin Ratio 0.27L, Anion Gap 16, Anisocytosis 2+, Glomerular Filtration Rate 28.6L, Hypochromasia 3+, Lymphocytes (Manual) 1L, Metamyelocytes 3H, Monocytes (Manual) 4, Myelocytes 1H, Neutrophils 90H, Nucleated Red Blood Cells 1H, Platelet Estimate DECREASED, Promyelocytes 1H 12/09/16 11:47: Amylase Level 11L, Lipase 45L 12/09/16 18:03: Urine Amorphous Sediment SMALLH, Urine Appearance CLEAR, Urine Color YELLOW, Urine pH 6.0, Urine Specific [place] 1.012, Urine Protein NEGATIVE, Urine Glucose (UA) NEGATIVE, Urine Ketones NEGATIVE, Urine Urobilinogen 0.2, Urine Bilirubin NEGATIVE, Urine Leukocyte Esterase NEGATIVE, Urine Bacteria (Auto) 1+H , Urine Blood 1+H, Urine Calcium Carbonate Cryst(Auto) , Urine Calcium Oxalate Cryst (Auto) , Urine Calcium Phosphate Greta (Auto) , Urine Cellular Casts , Urine Cystine Crystals , Urine Granular Casts (Auto) , Urine Hyaline Casts (Auto ) 1, Urine Leucine Crystals , Urine Mucus (Auto) , Urine Nitrite NEGATIVE, Urine Oval Fat Bodies (Auto) , Urine RBC (Auto) 3, Urine Renal Epithelial Cells , Urine Sperm (Auto) , Urine Squamous Epithelial Cells 0, Urine Transitional Epithelial Cells 2, Urine Trichomonas (Auto) , Urine Triple Phosphate Cryst ( Auto) , Urine Tyrosine Crystals , Urine Uric Acid Crystals (Auto) , Urine WBC ( Auto) 10H, Urine Waxy Casts (Auto) , Urine Yeast-Like Cells (Auto) CBC/BMP Laboratory Tests 12/09/16 05:45 Calcium Level 7.6 L, Aspartate Amino Transf (AST/SGOT) 743 H, Alanine Aminotransferase (ALT/SGPT) 185 H, Alkaline Phosphatase 1246 H, Total Bilirubin 0.9, Total Protein 6.1 #L, Albumin 1.3 L, Red Blood Count 3.22 L, Mean Corpuscular Volume 93.8, Mean Corpuscular Hemoglobin 27.3, Mean Corpuscular Hemoglobin Concent 29.1 L, Red Cell Distribution Width 18.8 H Microbiology Microbiology 12/09/16 Blood Culture, Received Pending 12/09/16 Blood Culture, Received Pending 12/05/16 Blood Culture - Preliminary, Resulted No Growth after 72 hours. All specime... 12/05/16 Blood Culture - Preliminary, Resulted No Growth after 72 hours. All specime... 12/05/16 Influenza Virus Type A Antigen - Final, Complete 12/05/16 Influenza Virus Type B Antigen - Final, Complete 12/05/16 Respiratory Virus Panel (PCR) ([facility]) - Final, Complete 12/05/16 Urine Culture - Final, Complete FRANK ABBOTT DO Dec 10, 2016 00:15
[2016-12-10] MEDS: MAALOX 30 ML SUSP *UDC PO PRN ×2 (01:12→14:41)
[2016-12-10] MEDS: oxyCODONE 5MG TAB PO PRN ×3 (03:41→21:43)
[2016-12-10] MEDS: PIPERACILLIN/TAZOBACTAM SOD 3.375 GM in D5W MINI-BAG PLUS 50 ML IV SCH ×3 (05:10→17:50)
--- NOTE | 2016-12-10 08:25 | IPNPDOC ---
Subjective Date Seen The patient was seen on 12/10/16. Subjective Chief Complaint/HPI The patient is a 56-year-old male admitted with a reason for visit of Sepsis. Events since last encounter Pt states he is weak. Still with SOB and the same chest discomfort. Constitutional: Denies: Chills, Fever Pulmonary: Reports: Dyspnea Cardiovascular: Reports: Chest Pain Gastrointestinal: Reports: Nausea, Denies: Abdominal Pain, Vomiting Objective Physical Examination General Exam: Positive: Alert, Cooperative Eye Exam: Positive: Other Eye Symptoms (meiosis), Negative: Ptosis, Sclera icteric ENT Exam: Positive: Other ENT (patches of white round lesions, c/w thrush) Neck Exam: Negative: thyromegaly Heart Exam: Positive: Normal S1, Normal S2, Regular Rhythm, Negative: Murmurs Abdomen Exam: Positive: BS Hypoactive, Tenderness (diffuse) Extremity Exam: Positive: Edema (2+) Skin Exam: Negative: Rash Assessment /Plan Problems (1) Sepsis Status: Acute Problem Text: 12/10 - WBC 28.4 (33.6 yesterday). On Vanco and Zosyn. Zosyn was started yesterday and Meropenem was d/c'ed. Paracentesis ordered today. Blood cx no growth after 24 hours. 12/09: WBCs significantly higher. Change antibiotics. UA and chest X ray ordered. Blood cultures pending. US ordered to evaluate for reaccumulation of ascites, and paracentesis with cultures and studies ordered. 12/08: still with leukocytosis, but improving; renal function similar to yesterday. 12/07: pressures better, heart rate better, organ dysfunction improved. urine culture negative, blood culture negative. low pressures, elevated white count, high lactic acid, improved but not normal. last lactic acid up to 5.3. new bolus of 500 cc NS started in ICU. had received 2230 ml in ER yesterday. creatinine improving. 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 cultures pending and patient on empiric Rx with meropenem and vanco (2) Bladder cancer Status: Chronic Problem Text: suspected source of liver mets, has had bladder reconstructed. Known bony mets, and this is likely the source of his chest discomfort (quite tender to palpation.) Pain control has been an issue today, and I switched to a fentanyl patch. (Low dose, as diflucan affects fentanyl metabolism.) He has IV morphine for breakthrough pain. 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 He is supposed to have teeth removed soon. Pain from mets to liver remains significant problem for him. (4) Metastases to the liver Status: Chronic Problem Text: 12/10 - paracentesis ordered for today 12/09 -- ascites reaccumulating; paracentesis order (diagnostic, not sufficient accumulation to be necessary if not concerned re: potential infection.) 12/08 -- abdominal discomfort improved today, per patient; s/p paracentesis Lot of pain. Possible worsening of Liver enzymes due to recent Opdivo, but more likely direct effect of disease. Not doing well with Opdivo, but has not been able to do q2 week dosing due to intercurrent illness Ascites increased since fluid resuscitation. Will request paracentesis for symptom improvement. (5) ARF (acute renal failure) Status: Acute Problem Text: 12/10 - Trending up. Creat 2.60, BUN 27.3 12/08 -- similar to yesterday may be result of sepsis/hypotension. may be part of toxic effect of Opdivo. continue fluid resuscitation (6) Urinary retention Status: Acute Problem Text: Orders to bladder scan, and straight cath as necessary. We may need to ask urology to place a Cam. (7) Anemia Status: Acute Problem Specific Plan: Monitor Clinically, Repeat Labs Problem Text: Transfuse 2 units. Plan/VTE VTE Prophylaxis Ordered?: Yes Plan/Urinary Catheter Reason for insertion/continuin: Critical Pt monitoring Plan Advance Directives: DNR VS, I&O, 24H, [facility] Vital Signs/I&O Vital Signs Date Time Temp Pulse Resp B/P Pulse Ox O2 Delivery O2 Flow Rate FiO2 12/10/16 04:11 20 Nasal Cannula 12/10/16 04:02 97.0 92 92/50 92 12/09/16 21:54 10.0 I&O- Last 24 Hours up to 6 AM 12/10/16 06:00 Intake Total 1360 ml Output Total 575 ml Balance 785 ml Laboratory Data 24H LABS Laboratory Tests 2 12/09/16 11:47: Amylase Level 11L, Lipase 45L 12/09/16 18:03: Urine Amorphous Sediment SMALLH, Urine Appearance CLEAR, Urine Color YELLOW, Urine pH 6.0, Urine Specific [place] 1.012, Urine Protein NEGATIVE, Urine Glucose (UA) NEGATIVE, Urine Ketones NEGATIVE, Urine Urobilinogen 0.2, Urine Bilirubin NEGATIVE, Urine Leukocyte Esterase NEGATIVE, Urine Bacteria (Auto) 1+H , Urine Blood 1+H, Urine Calcium Carbonate Cryst(Auto) , Urine Calcium Oxalate Cryst (Auto) , Urine Calcium Phosphate Greta (Auto) , Urine Cellular Casts , Urine Cystine Crystals , Urine Granular Casts (Auto) , Urine Hyaline Casts (Auto ) 1, Urine Leucine Crystals , Urine Mucus (Auto) , Urine Nitrite NEGATIVE, Urine Oval Fat Bodies (Auto) , Urine RBC (Auto) 3, Urine Renal Epithelial Cells , Urine Sperm (Auto) , Urine Squamous Epithelial Cells 0, Urine Transitional Epithelial Cells 2, Urine Trichomonas (Auto) , Urine Triple Phosphate Cryst ( Auto) , Urine Tyrosine Crystals , Urine Uric Acid Crystals (Auto) , Urine WBC ( Auto) 10H, Urine Waxy Casts (Auto) , Urine Yeast-Like Cells (Auto) 12/10/16 05:18: Blood Urea Nitrogen 69H, Creatinine 2.60H, Sodium Level 131L, Potassium Level 5.6H, Chloride Level 99, Carbon Dioxide Level 17L, Calcium Level 7.0L, Aspartate Amino Transf (AST/SGOT) 441H, Alanine Aminotransferase (ALT/SGPT) 144H , Alkaline Phosphatase 1063H, Total Bilirubin 1.0, Total Protein 4.6#L, Albumin 1.1L, Albumin/Globulin Ratio 0.31L, Anion Gap 15, Anisocytosis 2+, Band Neutrophils 2, Glomerular Filtration Rate 27.3L, Hypochromasia 1+, Lymphocytes ( Manual) 4L, Monocytes (Manual) 4, Neutrophils 90H, Platelet Estimate MARKED DECREASE CBC/BMP Laboratory Tests 12/10/16 05:18 Calcium Level 7.0 L, Aspartate Amino Transf (AST/SGOT) 441 H, Alanine Aminotransferase (ALT/SGPT) 144 H, Alkaline Phosphatase 1063 H, Total Bilirubin 1.0, Total Protein 4.6 #L, Albumin 1.1 L, Red Blood Count 2.72 L, Mean Corpuscular Volume 93.9, Mean Corpuscular Hemoglobin 28.2, Mean Corpuscular Hemoglobin Concent 30.1 L, Red Cell Distribution Width 19.6 H Microbiology Microbiology 12/09/16 Blood Culture - Preliminary, Resulted No growth after 24 hours . All specim... 12/09/16 Blood Culture - Preliminary, Resulted No growth after 24 hours . All specim... 12/05/16 Blood Culture - Preliminary, Resulted No Growth after 72 hours. All specime... 12/05/16 Blood Culture - Preliminary, Resulted No Growth after 72 hours. All specime... 12/05/16 Influenza Virus Type A Antigen - Final, Complete 12/05/16 Influenza Virus Type B Antigen - Final, Complete 12/05/16 Respiratory Virus Panel (PCR) ([facility]) - Final, Complete 12/10/16 Urine Culture, Received Pending 12/05/16 Urine Culture - Final, Complete Rudi Mac Dec 10, 2016 08:25
[2016-12-10] MEDS: FLUCONAZOLE 100 MG TAB PO SCH (09:13)
[2016-12-10] MEDS: NICOTINE 14 MG/24 HR TRANSDERMAL TD SCH (09:13)
[2016-12-10] MEDS ORDERED: VANCOMYCIN HCL 1,000 MG, VIAL MATE ADAPTER 1 EACH in D5W 250 ML IV SCH (10:00)
[2016-12-10] MEDS: MORPHINE 2 MG/ML 1ML SYRINGE IV PRN (12:56)
--- NOTE | 2016-12-10 16:09 | REP ---
ULTRASOUND GUIDED PARACENTESIS: The procedure was performed under the direct supervision of Dr. Gabirel. The risks and benefits of the procedure were explained to the patient and informed consent was obtained. The largest pocket of fluid was localized in the right flank using ultrasound guidance. The skin was prepped and draped in a sterile fashion. 1% lidocaine was used as a local anesthetic. Using ultrasound guidance and #8-Stateless skater APD catheter was inserted using trocar technique. 1950 mL of cloudy yellow fluid was withdrawn and sent to the lab. The patient tolerated the procedure well and there were no immediate complications. Reviewed by DEVIN Mackenzie 12/10/2016 05:01 PEdited and Signed by Eric Gabriel MD 12/11/2016 03:34 P
--- NOTE | 2016-12-10 21:12 | PHACANCOPD ---
PHARMACY VANCOMYCIN DOSING Pt Demographics Demographics Patient Age:56 , Weight:79.000 , Gender: male Adjusted Body Weight Date: 12/05/16, Adjusted Body Weight: [72] Kg Events Past 24 Hours Events Past 24 Hours: NO: Change in CrCl, Dialysis, Diuretic Therapy, Elevation in WBC, Fever, Other, Pending Diagnostics, Pending Procedures Vancomycin Vancomycin Target Ranges: 15-20 mcg/ml Vancomycin Load Y/N: Yes Load Dose Date Time Vancomycin Load Dose: 1500MG Date: 12-05 Time: 2300 Vancomycin Dose Date: 12/05/16. Current Vancomycin Dose: [1000MG Q18H] Intermittent Dosing?: No Labs Labs Item Value Date Time Vancomycin Level Trough 28.0 UG/ML *H 12/10/16 0903 Micro Microbiology 12/09/16 Blood Culture - Preliminary, Resulted No growth after 24 hours . All specim... 12/09/16 Blood Culture - Preliminary, Resulted No growth after 24 hours . All specim... 12/05/16 Blood Culture - Final, Complete NO GROWTH AFTER 5 DAYS 12/05/16 Blood Culture - Final, Complete NO GROWTH AFTER 5 DAYS 12/10/16 Gram Stain - Final, Resulted 12/10/16 Body Fluid Culture, Resulted Pending 12/05/16 Influenza Virus Type A Antigen - Final, Complete 12/05/16 Influenza Virus Type B Antigen - Final, Complete 12/05/16 Respiratory Virus Panel (PCR) ([facility]) - Final, Complete 12/10/16 Urine Culture, Received Pending 12/05/16 Urine Culture - Final, Complete Creatinine Clearance Date:12/09/16. Creatinine Clearance: [43.4]. Pending Labs Trough 12-09 @1000 Assessment and Plan Maintaining Current Dose?: Yes Reason for dose change: Trough too high Pharmacist Note Pharmacist Note Date: 12/10/16. Pharmacist note: Trough came back today @28mcg/ml @9. Today's dose was held and is scheduled to continue tomorrow pending morning trough. Frequency was already extended 12/09 so this dosing (1g Q24h) will continue at restart. We will continue to monitor and adjust. Date: 12/07/16. Pharmacist note:Trough of 14.4 is slightly below target range. CrCl is improving and will likely cause the future troughs to drop. Will reduce interval to q18h with a trough scheduled for 12-09 @1000. Will continue to monitor and make adjustments as needed. [facility] Dec 10, 2016 21:12
[2016-12-10] MEDS: ANALGESIC BALM CRM 120 GM TOP PRN (21:43)
[2016-12-10] MEDS: SENNA 8.6 MG TAB (SENOKOT) PO SCH (21:43)
[2016-12-11] VITALS (11 sets, daily range): BP systolic 75–89; BP diastolic 49–55
[2016-12-11] MEDS: PIPERACILLIN/TAZOBACTAM SOD 3.375 GM in D5W MINI-BAG PLUS 50 ML IV SCH ×4 (00:14→18:36)
[2016-12-11] MEDS: ACETAMINOPHEN TAB 650MG DOSE (2X325MG) PO PRN ×2 (00:14→05:26)
[2016-12-11] MEDS: FLUCONAZOLE 100 MG TAB PO SCH (08:39)
[2016-12-11] MEDS: NICOTINE 14 MG/24 HR TRANSDERMAL TD SCH (08:41)
[2016-12-11] MEDS: oxyCODONE 5MG TAB PO PRN ×2 (09:35→18:36)
--- NOTE | 2016-12-11 11:55 | PHACANCOPD ---
PHARMACY VANCOMYCIN DOSING Pt Demographics Demographics Patient Age:56 , Weight:78.200 , Gender: male Adjusted Body Weight Date: 12/05/16, Adjusted Body Weight: [72] Kg Vancomycin Vancomycin Target Ranges: 15-20 mcg/ml Vancomycin Load Y/N: Yes Load Dose Date Time Vancomycin Load Dose: 1500MG Date: 12-05 Time: 2300 Vancomycin Dose Date: 12/11/16. Current Vancomycin Dose: [intermittent] Date: 12/05/16. Current Vancomycin Dose: [1000MG Q18H] Intermittent Dosing?: Yes Labs Labs Item Value Date Time Creatinine 2.03 MG/DL H 12/08/16 0514 Creatinine 2.50 MG/DL H 12/09/16 0545 Creatinine 2.60 MG/DL H 12/10/16 0518 Creatinine 2.94 MG/DL H 12/11/16 0528 Vancomycin Level Trough 28.0 UG/ML *H 12/10/16 0903 Vancomycin Level Trough 30.4 UG/ML *H 12/11/16 0844 Vancomycin Level Trough 14.4 UG/ML 12/07/16 2107 Micro Microbiology 12/09/16 Blood Culture - Preliminary, Resulted No Growth after 48 hours. All Specime... 12/09/16 Blood Culture - Preliminary, Resulted No Growth after 48 hours. All Specime... 12/05/16 Blood Culture - Final, Complete NO GROWTH AFTER 5 DAYS 12/05/16 Blood Culture - Final, Complete NO GROWTH AFTER 5 DAYS 12/10/16 Gram Stain - Final, Resulted 12/10/16 Body Fluid Culture, Resulted Pending 12/05/16 Influenza Virus Type A Antigen - Final, Complete 12/05/16 Influenza Virus Type B Antigen - Final, Complete 12/05/16 Respiratory Virus Panel (PCR) ([facility]) - Final, Complete 12/10/16 Urine Culture - Final, Complete 12/05/16 Urine Culture - Final, Complete Creatinine Clearance Date:12/11/16. Creatinine Clearance: [28.1ml/min]. Date:12/09/16. Creatinine Clearance: [43.4]. Pending Labs Trough 12-09 @1000 Assessment and Plan Maintaining Current Dose?: No Reason for dose change: Trough too high Pharmacist Note Pharmacist Note Date: 12/11/16. Pharmacist note:Trough came back today @30.4mcg/ml @09:00 crcl decreased to 28.1ml/min. Vancomycin 1g q24h was discontinued and will be switched to intermittent dosing. We will continue to monitor and adjust as needed. Date: 12/10/16. Pharmacist note: Trough came back today @28mcg/ml @9. Today's dose was held and is scheduled to continue tomorrow pending morning trough. Frequency was already extended 12/09 so this dosing (1g Q24h) will continue at restart. We will continue to monitor and adjust. Date: 12/07/16. Pharmacist note:Trough of 14.4 is slightly below target range. CrCl is improving and will likely cause the future troughs to drop. Will reduce interval to q18h with a trough scheduled for 12-09 @1000. Will continue to monitor and make adjustments as needed. [facility] Dec 11, 2016 11:55
[2016-12-11] MEDS ORDERED: VANCOMYCIN INTERMITTENT/PULSE DOSING BY CLINICAL PHARMACIST PER DOSING PROTOCOL XX SCH (12:00)
[2016-12-11] MEDS ORDERED: SODIUM CHLORIDE 0.9% 1000 ML IV ONE (12:45)
[2016-12-11] MEDS ORDERED: SOD POLYSTYRENE SULFONATE SUSP 15 GM/60 ML UD PO ONE (12:45)
--- NOTE | 2016-12-11 13:19 | IPNPDOC ---
Subjective Date Seen The patient was seen on 12/11/16. Subjective Chief Complaint/HPI The patient is a 56-year-old male admitted with a reason for visit of Sepsis. Events since last encounter Patient states he is feeling somewhat better today. He is tolerating some oral intake. He denies any shortness of breath, fevers, chills. He continues to have diffuse abdominal pain, which is worse on the left-hand side. Constitutional: Denies: Chills, Fever, Malaise Skin: Denies: Rash Pulmonary: Denies: Cough, Dyspnea Cardiovascular: Denies: Chest Pain, Palpitations Gastrointestinal: Reports: Abdominal Pain, Denies: Constipation, Diarrhea, Nausea, Vomiting Genitourinary: Denies: Dysuria Psych: Reports: Mood Normal Other systems 10 point review systems otherwise normal Objective Physical Examination General Exam: Positive: Alert, Cooperative, No Acute Distress Eye Exam: Negative: Sclera icteric ENT Exam: Positive: Mucous membr. moist/pink Neck Exam: Negative: thyromegaly Chest Exam: Positive: Clear to auscultation, Normal air movement Heart Exam: Positive: Normal S1, Normal S2, Regular Rhythm, Negative: Murmurs Abdomen Exam: Positive: BS Hypoactive, Tenderness (diffuse; protuberant) Extremity Exam: Positive: Edema (2+) Skin Exam: Negative: Rash Psych Exam: Positive: Mental status NL, Mood NL, Oriented x 3 Assessment /Plan Assessment This is a 56-year-old gentleman with a history of metastatic cancer, who presented with sepsis and lactic acidosis Problems (1) Sepsis Status: Acute Problem Text: White count remains elevated. On Vanco and Zosyn. Zosyn was started yesterday and Meropenem was d/c'ed. Status post Paracentesis, with cell counts not consistent with SBP. Cultures pending. Blood cx no growth after 24 hours. Repeated lactate, which was 6.3; may be due to multiorgan infiltration with tumor. Cautiously giving lactated Ringer solution. Patient has evidence of anasarca. Pressures have been very low in the 70s today. -Repeat lactates every 4 hours -1 L LR bolus; repeat boluses as indicated -Continue antibiotics -Consider further evaluation of biliary tree given transaminitis, and elevated T bili (2) Bladder cancer Status: Chronic Problem Text: suspected source of liver mets, has had bladder reconstructed. Known bony mets, and this is likely the source of his chest discomfort (quite tender to palpation.) Pain control has been an issue today, and I switched to a fentanyl patch. (Low dose, as diflucan affects fentanyl metabolism.) He has IV morphine for breakthrough pain. 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 He is supposed to have teeth removed soon. Pain from mets to liver remains significant problem for him. (4) Metastases to the liver Status: Chronic Problem Text: Status post paracentesis 2. Significantly elevated transaminitis , and mild hyperbilirubinemia. Patient is mildly jaundiced today. -Started lactulose for hepatic disease, and to help hyperkalemia (5) ARF (acute renal failure) Status: Acute Problem Text: 12/10 - Trending up. Creat 2.60, BUN 27.3 12/08 -- similar to yesterday may be result of sepsis/hypotension. may be part of toxic effect of Opdivo. continue fluid resuscitation (6) Urinary retention Status: Acute Problem Text: Orders to bladder scan, and straight cath as necessary. We may need to ask urology to place a Cam. (7) Anemia Status: Acute Problem Specific Plan: Monitor Clinically, Repeat Labs Problem Text: Transfuse 2 units. Plan/VTE VTE Prophylaxis Ordered?: Yes Plan/Urinary Catheter Reason for insertion/continuin: Critical Pt monitoring Plan Advance Directives: DNR VS, I&O, 24H, Fishbone Vital Signs/I&O Vital Signs Date Time Temp Pulse Resp B/P Pulse Ox O2 Delivery O2 Flow Rate FiO2 12/11/16 10:05 18 95 Room Air 12/11/16 09:35 84 83/50 12/11/16 08:00 96.8 12/09/16 21:54 10.0 I&O- Last 24 Hours up to 6 AM 12/11/16 06:00 Intake Total 1635 ml Output Total 325 ml Balance 1310 ml Laboratory Data 24H LABS Laboratory Tests 2 12/11/16 05:28: Blood Urea Nitrogen 77H, Creatinine 2.94H, Sodium Level 131L, Potassium Level 6.0H, Chloride Level 99, Carbon Dioxide Level 18L, Calcium Level 6.9L, Aspartate Amino Transf (AST/SGOT) 238H, Alanine Aminotransferase (ALT/SGPT) 112H , Alkaline Phosphatase 934H, Total Bilirubin 1.2H, Total Protein 4.6L, Albumin 1.1L, Albumin/Globulin Ratio 0.31L, Anion Gap 14, Anisocytosis 2+, Band Neutrophils 5, Glomerular Filtration Rate 23.7L, Hypochromasia 2+, Lymphocytes ( Manual) 6L, Monocytes (Manual) 5, Neutrophils 84H, Platelet Estimate MARKED DECREASE, Red Blood Cell Morphology NORMAL 12/11/16 08:44: Vancomycin Level Trough 30.4*H CBC/BMP Laboratory Tests 12/10/16 16:12 12/11/16 05:28 Calcium Level 6.9 L, Aspartate Amino Transf (AST/SGOT) 238 H, Alanine Aminotransferase (ALT/SGPT) 112 H, Alkaline Phosphatase 934 H, Total Bilirubin 1.2 H, Total Protein 4.6 L, Albumin 1.1 L, Red Blood Count 3.18 L, Mean Corpuscular Volume 93.1, Mean Corpuscular Hemoglobin 27.3, Mean Corpuscular Hemoglobin Concent 29.4 L, Red Cell Distribution Width 18.9 H Microbiology Microbiology 12/09/16 Blood Culture - Preliminary, Resulted No Growth after 48 hours. All Specime... 12/09/16 Blood Culture - Preliminary, Resulted No Growth after 48 hours. All Specime... 12/05/16 Blood Culture - Final, Complete NO GROWTH AFTER 5 DAYS 12/05/16 Blood Culture - Final, Complete NO GROWTH AFTER 5 DAYS 12/10/16 Gram Stain - Final, Resulted 12/10/16 Body Fluid Culture, Resulted Pending 12/05/16 Influenza Virus Type A Antigen - Final, Complete 12/05/16 Influenza Virus Type B Antigen - Final, Complete 12/05/16 Respiratory Virus Panel (PCR) ([facility]) - Final, Complete 12/10/16 Urine Culture - Final, Complete 12/05/16 Urine Culture - Final, Complete RAFA CHAHAL MD Dec 11, 2016 13:19
[2016-12-11] MEDS: LACTULOSE 20 GM/30 ML SYRUP UD PO SCH ×2 (13:52→20:28)
[2016-12-11] MEDS ORDERED: LR 1,000 ML IV ONE (17:15)
[2016-12-11] MEDS: fentaNYL 12 MCG/HR PATCH TOP SCH (17:34)
[2016-12-11] MEDS: SENNA 8.6 MG TAB (SENOKOT) PO SCH (21:14)
[2016-12-11] MEDS: MORPHINE 2 MG/ML 1ML SYRINGE IV PRN (21:34)
[2016-12-12] VITALS (9 sets, daily range): BP systolic 82–104; BP diastolic 50–59
[2016-12-12] MEDS: PIPERACILLIN/TAZOBACTAM SOD 3.375 GM in D5W MINI-BAG PLUS 50 ML IV SCH ×5 (00:43→23:06)
[2016-12-12] MEDS: oxyCODONE 5MG TAB PO PRN ×4 (02:12→23:08)
[2016-12-12] MEDS: NICOTINE 14 MG/24 HR TRANSDERMAL TD SCH (07:41)
[2016-12-12] MEDS: FLUCONAZOLE 100 MG TAB PO SCH (07:42)
[2016-12-12] MEDS: LACTULOSE 20 GM/30 ML SYRUP UD PO SCH ×2 (07:43→21:00)
[2016-12-12] MEDS: ACETAMINOPHEN TAB 650MG DOSE (2X325MG) PO PRN ×2 (11:15→18:15)
[2016-12-12] MEDS: CALCIUM CARBONATE 500 MG CHEW U/D PO PRN (14:30)
[2016-12-12] MEDS: ONDANSETRON 4 MG TAB (S0181) PO PRN (18:00)
[2016-12-12] MEDS ORDERED: SCOPOLAMINE 1.5 MG TRANSDERMAL TD PRN (20:00)
[2016-12-12] MEDS ORDERED: FLEET ENEMA PR PRN (20:00)
[2016-12-12] MEDS ORDERED: BISACODYL 10 MG SUPP PR PRN (20:00)
[2016-12-12] MEDS: MORPHINE 10MG/0.5ML ORAL CONCENTRATE SOLUTION U/D SL PRN (21:03)
[2016-12-12] MEDS: SENNA 8.6 MG TAB (SENOKOT) PO SCH (21:03)
[2016-12-13] MEDS: ONDANSETRON 4 MG TAB (S0181) PO PRN ×2 (01:08→18:41)
--- NOTE | 2016-12-13 01:32 | IPNPDOC ---
Subjective Date Seen The patient was seen on 12/12/16. Subjective Chief Complaint/HPI The patient is a 56-year-old male admitted with a reason for visit of Sepsis. Events since last encounter After a long conversation, patient voiced desire to have hospice consult. States of his cancer, "It's eating me up slowly." His abdomen is painful again , though mostly controlled on pain regimen. Constitutional: Denies: Chills, Fever ENT: Reports: Head Aches Pulmonary: Denies: Cough, Dyspnea Cardiovascular: Reports: Chest Pain Gastrointestinal: Reports: Diarrhea, Denies: Abdominal Pain, Nausea, Vomiting Objective Physical Examination General Exam: Positive: Alert, Cooperative, No Acute Distress Eye Exam: Negative: Sclera icteric ENT Exam: Positive: Mucous membr. moist/pink Neck Exam: Negative: thyromegaly Chest Exam: Positive: Clear to auscultation, Normal air movement Heart Exam: Positive: Normal S1, Normal S2, Regular Rhythm, Negative: Murmurs Abdomen Exam: Positive: BS Hypoactive, Tenderness (diffuse; protuberant) Extremity Exam: Positive: Edema (2+) Skin Exam: Negative: Rash Psych Exam: Positive: Mental status NL, Mood NL, Oriented x 3 Assessment /Plan Problems (1) DNR (do not resuscitate) Status: Acute Problem Text: 12/12: Came back in the evening to review MOLST with patient and son; he elects SKIN THERAPIST status. SKIN THERAPIST orders input. Hospice consult pending. He is clear that he wants to go home. (2) Sepsis Status: Acute Problem Text: White count remains elevated. On Vanco and Zosyn. Zosyn was started yesterday and Meropenem was d/c'ed. Status post Paracentesis, with cell counts not consistent with SBP. Cultures pending. Blood cx no growth after 24 hours. Repeated lactate, which was 6.3; may be due to multiorgan infiltration with tumor. Cautiously giving lactated Ringer solution. Patient has evidence of anasarca. Pressures have been very low in the 70s today. -Repeat lactates every 4 hours -1 L LR bolus; repeat boluses as indicated -Continue antibiotics -Consider further evaluation of biliary tree given transaminitis, and elevated T bili (3) Bladder cancer Status: Chronic Problem Text: suspected source of liver mets, has had bladder reconstructed. Known bony mets, and this is likely the source of his chest discomfort (quite tender to palpation.) Pain control has been an issue today, and I switched to a fentanyl patch. (Low dose, as diflucan affects fentanyl metabolism.) He has IV morphine for breakthrough pain. 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 He is supposed to have teeth removed soon. Pain from mets to liver remains significant problem for him. (5) Metastases to the liver Status: Chronic Problem Text: Status post paracentesis 2. Significantly elevated transaminitis , and mild hyperbilirubinemia. Patient is mildly jaundiced today. -Started lactulose for hepatic disease, and to help hyperkalemia (6) ARF (acute renal failure) Status: Acute Problem Text: 12/10 - Trending up. Creat 2.60, BUN 27.3 12/08 -- similar to yesterday may be result of sepsis/hypotension. may be part of toxic effect of Opdivo. continue fluid resuscitation (7) Anemia Status: Acute Problem Specific Plan: Monitor Clinically, Repeat Labs Problem Text: Transfuse 2 units. (8) Urinary retention Status: Resolved Problem Text: Orders to bladder scan, and straight cath as necessary. We may need to ask urology to place a Cam. Plan/VTE VTE Prophylaxis Ordered?: Yes Plan/Urinary Catheter Reason for insertion/continuin: Critical Pt monitoring Plan Advance Directives: DNR VS, I&O, 24H, Fishbone Vital Signs/I&O Vital Signs Date Time Temp Pulse Resp B/P Pulse Ox O2 Delivery O2 Flow Rate FiO2 12/12/16 23:38 18 94 Trach Collar 12/12/16 21:33 100 12/12/16 21:03 104/59 12/12/16 20:00 96.7 12/09/16 21:54 10.0 I&O- Last 24 Hours up to 6 AM 12/13/16 06:00 Intake Total 1060 ml Output Total 475 ml Balance 585 ml Laboratory Data 24H LABS Laboratory Tests 2 12/12/16 05:32: Blood Urea Nitrogen 78H, Creatinine 2.78H, Sodium Level 137, Potassium Level 5.4H, Chloride Level 103, Carbon Dioxide Level 19L, Calcium Level 6.9L, Aspartate Amino Transf (AST/SGOT) 170H, Alanine Aminotransferase (ALT/SGPT) 85H , Alkaline Phosphatase 897H, Total Bilirubin 1.1H, Total Protein 4.8L, Albumin 1.1L, Albumin/Globulin Ratio 0.30L, Anion Gap 15, Anisocytosis 2+, Giant Platelets 1+, Glomerular Filtration Rate 25.3L, Lactic Acid Level 5.6*H, Lymphocytes (Manual) 2L, Monocytes (Manual) 6, Neutrophils 92H, Platelet Estimate MARKED DECREASE 12/12/16 10:10: Lactic Acid Followup at 4 Hours 8.2*H CBC/BMP Laboratory Tests 12/12/16 05:32 Calcium Level 6.9 L, Aspartate Amino Transf (AST/SGOT) 170 H, Alanine Aminotransferase (ALT/SGPT) 85 H, Alkaline Phosphatase 897 H, Total Bilirubin 1.1 H, Total Protein 4.8 L, Albumin 1.1 L, Red Blood Count 3.24 L, Mean Corpuscular Volume 91.8, Mean Corpuscular Hemoglobin 28.0, Mean Corpuscular Hemoglobin Concent 30.5 L, Red Cell Distribution Width 19.5 H Microbiology Microbiology 12/09/16 Blood Culture - Preliminary, Resulted No Growth after 72 hours. All specime... 12/09/16 Blood Culture - Preliminary, Resulted No Growth after 72 hours. All specime... 12/05/16 Blood Culture - Final, Complete NO GROWTH AFTER 5 DAYS 12/05/16 Blood Culture - Final, Complete NO GROWTH AFTER 5 DAYS 12/10/16 Gram Stain - Final, Resulted 12/10/16 Body Fluid Culture, Resulted Pending 12/05/16 Influenza Virus Type A Antigen - Final, Complete 12/05/16 Influenza Virus Type B Antigen - Final, Complete 12/05/16 Respiratory Virus Panel (PCR) (DERRICK) - Final, Complete 12/10/16 Urine Culture - Final, Complete 12/05/16 Urine Culture - Final, Complete FRANK ABBOTT DO Dec 13, 2016 01:32
[2016-12-13] MEDS: MORPHINE 10MG/0.5ML ORAL CONCENTRATE SOLUTION U/D SL PRN ×4 (03:59→18:29)
[2016-12-13] MEDS: oxyCODONE 5MG TAB PO PRN (06:45)
[2016-12-13] MEDS: PIPERACILLIN/TAZOBACTAM SOD 3.375 GM in D5W MINI-BAG PLUS 50 ML IV SCH ×4 (06:45→23:48)
[2016-12-13] MEDS: FLUCONAZOLE 100 MG TAB PO SCH (09:38)
[2016-12-13] MEDS: NICOTINE 14 MG/24 HR TRANSDERMAL TD SCH (09:39)
[2016-12-13] MEDS: LACTULOSE 20 GM/30 ML SYRUP UD PO SCH ×2 (09:39→20:47)
[2016-12-13] MEDS: SENNA 8.6 MG TAB (SENOKOT) PO SCH (20:47)
[2016-12-13] MEDS: MAALOX 30 ML SUSP *UDC PO PRN (21:01)
[2016-12-13] MEDS: PROMETHAZINE 25 MG TAB PO PRN (21:20)
[2016-12-14] MEDS: oxyCODONE 5MG TAB PO PRN ×3 (01:59→19:56)
[2016-12-14] MEDS: ONDANSETRON 4 MG TAB (S0181) PO PRN ×2 (02:22→12:14)
--- NOTE | 2016-12-14 03:16 | IPNPDOC ---
Subjective Date Seen The patient was seen on 12/14/16. Subjective Chief Complaint/HPI The patient is a 56-year-old male admitted with a reason for visit of Sepsis. Events since last encounter PFS is working on arranging a day pass so that the patient can spend a few hours seeing the hospice house [facility]. Patient is interested in hospice care, but would like to see the house before committing to it. His family is present in the room with him. He states that he is feeling pretty well, tolerating pain medication. Constitutional: Denies: Chills, Fever Pulmonary: Denies: Cough, Dyspnea Cardiovascular: Denies: Chest Pain Gastrointestinal: Reports: Abdominal Pain, Denies: Constipation, Diarrhea, Nausea, Vomiting Objective Physical Examination General Exam: Positive: Alert, Cooperative, No Acute Distress Eye Exam: Negative: Sclera icteric ENT Exam: Positive: Mucous membr. moist/pink Neck Exam: Negative: thyromegaly Chest Exam: Positive: Clear to auscultation, Normal air movement Heart Exam: Positive: Normal S1, Normal S2, Regular Rhythm, Negative: Murmurs Abdomen Exam: Positive: BS Hypoactive, Tenderness (diffuse; protuberant) Extremity Exam: Positive: Edema (2+) Skin Exam: Negative: Rash Psych Exam: Positive: Mental status NL, Mood NL, Oriented x 3, Other (in good spirits (12/13)) Assessment /Plan Problems (1) DNR (do not resuscitate) Status: Acute Problem Text: 12/13: Considering DC to hospice house; he will see it tomorrow with his son, unless plans change. 12/12: Came back in the evening to review MOLST with patient and son; he elects PAN DUMPER status. PAN DUMPER orders input. Hospice consult pending. He is clear that he wants to go home. (2) Sepsis Status: Acute Problem Text: 12/13: DCing antibiotics, as patient PAN DUMPER, without labs, and has received 8 days of multiple broad spectrum antibiotics without convincing source of infection. Paracentesis fluid grew "few" Staph. capitis. I would like to avoid inducing C. diff colitis in this terminal patient. White count remains elevated. On Vanco and Zosyn. Zosyn was started yesterday and Meropenem was d/c'ed. Status post Paracentesis, with cell counts not consistent with SBP. Cultures pending. Blood cx no growth after 24 hours. Repeated lactate, which was 6.3; may be due to multiorgan infiltration with tumor. Cautiously giving lactated Ringer solution. Patient has evidence of anasarca. Pressures have been very low in the 70s today. -Repeat lactates every 4 hours -1 L LR bolus; repeat boluses as indicated -Continue antibiotics -Consider further evaluation of biliary tree given transaminitis, and elevated T bili (3) Bladder cancer Status: Chronic Problem Text: suspected source of liver mets, has had bladder reconstructed. Known bony mets, and this is likely the source of his chest discomfort (quite tender to palpation.) Pain control has been an issue today, and I switched to a fentanyl patch. (Low dose, as diflucan affects fentanyl metabolism.) He has IV morphine for breakthrough pain. 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 He is supposed to have teeth removed soon. Pain from mets to liver remains significant problem for him. (5) Metastases to the liver Status: Chronic Problem Text: Status post paracentesis 2. Significantly elevated transaminitis , and mild hyperbilirubinemia. Patient is mildly jaundiced today. -Started lactulose for hepatic disease, and to help hyperkalemia (6) ARF (acute renal failure) Status: Acute Problem Text: 12/10 - Trending up. Creat 2.60, BUN 27.3 12/08 -- similar to yesterday may be result of sepsis/hypotension. may be part of toxic effect of Opdivo. continue fluid resuscitation (7) Anemia Status: Acute Problem Specific Plan: Monitor Clinically, Repeat Labs Problem Text: Transfuse 2 units. (8) Urinary retention Status: Resolved Problem Text: Orders to bladder scan, and straight cath as necessary. We may need to ask urology to place a Cam. Plan/VTE VTE Prophylaxis Ordered?: Yes Plan/Urinary Catheter Reason for insertion/continuin: Critical Pt monitoring Plan Advance Directives: DNR VS, I&O, 24H, Fishbone Vital Signs/I&O Vital Signs Date Time Temp Pulse Resp B/P Pulse Ox O2 Delivery O2 Flow Rate FiO2 12/14/16 01:59 18 94 Room Air 12/12/16 21:33 100 12/12/16 21:03 104/59 3/22/17 20:00 96.7 12/09/16 21:54 10.0 I&O- Last 24 Hours up to 6 AM 12/14/16 06:00 Intake Total 1675 ml Output Total 0 ml Balance 1675 ml Laboratory Data Microbiology Microbiology 12/09/16 Blood Culture - Preliminary, Resulted No Growth after 72 hours. All specime... 12/09/16 Blood Culture - Preliminary, Resulted No Growth after 72 hours. All specime... 12/05/16 Blood Culture - Final, Complete NO GROWTH AFTER 5 DAYS 12/05/16 Blood Culture - Final, Complete NO GROWTH AFTER 5 DAYS 12/10/16 Gram Stain - Final, Complete 12/10/16 Body Fluid Culture - Final, Complete Staphylococcus Capitis 12/05/16 Influenza Virus Type A Antigen - Final, Complete 12/05/16 Influenza Virus Type B Antigen - Final, Complete 12/05/16 Respiratory Virus Panel (PCR) (DERRICK) - Final, Complete 12/10/16 Urine Culture - Final, Complete 12/05/16 Urine Culture - Final, Complete FRANK ABBOTT DO Dec 14, 2016 03:16
[2016-12-14] MEDS: MORPHINE 10MG/0.5ML ORAL CONCENTRATE SOLUTION U/D SL PRN ×5 (03:35→23:23)
[2016-12-14] MEDS: PIPERACILLIN/TAZOBACTAM SOD 3.375 GM in D5W MINI-BAG PLUS 50 ML IV SCH ×4 (06:31→23:24)
[2016-12-14] MEDS: LACTULOSE 20 GM/30 ML SYRUP UD PO SCH ×2 (08:47→19:55)
[2016-12-14] MEDS: NICOTINE 14 MG/24 HR TRANSDERMAL TD SCH (08:47)
[2016-12-14] MEDS: FLUCONAZOLE 100 MG TAB PO SCH (08:47)
[2016-12-14] MEDS: PROMETHAZINE 25 MG TAB PO PRN ×2 (10:18→19:59)
[2016-12-14] MEDS: CALCIUM CARBONATE 500 MG CHEW U/D PO PRN (15:34)
[2016-12-14] MEDS: PROCHLORPERAZINE 5 MG TAB (S0183) PO PRN ×2 (15:37→23:23)
[2016-12-14] MEDS: fentaNYL 12 MCG/HR PATCH TOP SCH (16:35)
[2016-12-14] MEDS: SENNA 8.6 MG TAB (SENOKOT) PO SCH (19:55)
[2016-12-15] MEDS: ONDANSETRON 4 MG TAB (S0181) PO PRN ×2 (00:38→11:01)
[2016-12-15] MEDS: ACETAMINOPHEN TAB 650MG DOSE (2X325MG) PO PRN ×2 (00:38→09:50)
[2016-12-15] MEDS: MORPHINE 10MG/0.5ML ORAL CONCENTRATE SOLUTION U/D SL PRN ×14 (01:49→22:21)
[2016-12-15] MEDS: PROCHLORPERAZINE 5 MG TAB (S0183) PO PRN (06:03)
[2016-12-15] MEDS: oxyCODONE 5MG TAB PO PRN (06:04)
[2016-12-15] MEDS: PIPERACILLIN/TAZOBACTAM SOD 3.375 GM in D5W MINI-BAG PLUS 50 ML IV SCH ×2 (06:04→12:00)
[2016-12-15] MEDS: LACTULOSE 20 GM/30 ML SYRUP UD PO SCH ×2 (08:51→19:55)
[2016-12-15] MEDS: FLUCONAZOLE 100 MG TAB PO SCH (08:52)
[2016-12-15] MEDS: NICOTINE 14 MG/24 HR TRANSDERMAL TD SCH (08:52)
[2016-12-15] MEDS: PROMETHAZINE 25 MG TAB PO PRN (09:50)
[2016-12-15] MEDS: MORPHINE SULFATE CADD 100 MG in APPROPRIATE DILUENT 1 EA IV SCH (18:03)
[2016-12-15] MEDS ORDERED: LORazepam 2 MG/ML VIAL (J2060) IV PRN (19:00)
[2016-12-15] MEDS: ATROPINE SULFATE 1% OP SOLN 2 ML BTL SL PRN ×2 (19:18→21:22)
[2016-12-15] MEDS: SENNA 8.6 MG TAB (SENOKOT) PO SCH (19:55)
[2016-12-16] MEDS: MORPHINE SULFATE CADD 100 MG in APPROPRIATE DILUENT 1 EA IV SCH (00:43)
--- NOTE | 2016-12-16 13:55 | DSES ---
DATE OF ADMISSION: 12/05/2016 DATE OF : 12/16/2016 PRINCIPAL DIAGNOSIS: Metastatic bladder cancer with liver metastases. SECONDARY DIAGNOSES: Sepsis. Vertebral metastases. Liver metastases. History of throat cancer. Acute renal failure. Anemia secondary to malignancy. Thrombocytopenia. Chronic kidney disease. Protein-calorie malnutrition. Ascites. HISTORY: Martínez Abbasi was admitted with the consequences of metastatic bladder cancer. He also had a history of throat cancer. His inpatient progress note detailed the course of his hospitalization. I picked up his case the day before his expiration. He had been placed on comfort measures at that point and plans had been made for transfer to the hospice house. However, his pain and clinical condition deteriorated, and we had to put him on a morphine drip. He became agitated, required intravenous (IV) Ativan, and he of the effects of his metastatic cancer on 12/16/2016. The rest of the details of his hospitalization are in his permanent medical record.
== END 2016-12-16 04:45 | disposition expired | DRG 461 ==
LOC: M ED 16:43 → M ED INP 18:30 → M ICU 20:49 → M MSPAV 12-12 22:35
PROVIDERS: ADMIT Internal Medicine; ATTEND Family Medicine
PROC: 0W9G3ZZ Drainage of Peritoneal Cavity, Percutaneous Approach (ICD-10-PCS; principal; 2016-12-10)
DX: C67.9 Malignant neoplasm of bladder, unspecified (principal); A41.9 Sepsis, unspecified organism; D61.810 Antineoplastic chemotherapy induced pancytopenia; N17.9 Acute kidney failure, unspecified; E46 Unspecified protein-calorie malnutrition; C79.51 Secondary malignant neoplasm of bone; C78.7 Secondary malignant neoplasm of liver and intrahepatic bile duct; D69.6 Thrombocytopenia, unspecified; J44.9 Chronic obstructive pulmonary disease, unspecified; E87.5 Hyperkalemia; Z66 Do not resuscitate; D63.0 Anemia in neoplastic disease; Z51.5 Encounter for palliative care; I12.9 Hypertensive chronic kidney disease with stage 1 through stage 4 chronic kidney disease, or unspecified chronic kidney disease; E78.5 Hyperlipidemia, unspecified; Z79.899 Other long term (current) drug therapy; N18.9 Chronic kidney disease, unspecified; Z85.21 Personal history of malignant neoplasm of larynx

== ENCOUNTER → 2016-12-05 | Outpatient (REF) | payer OTHER ==
[2016-12-05 13:01] LABS: DIFF SLIDE NUMBER 150; MEAN CORPUSCULAR HEMOGLOBIN 27.2 pg (27.0-33.0); MEAN CORPUSCULAR HGB CONC 28.5 g/dl (32.0-36.5); MEAN CORPUSCULAR VOLUME 95.5 fl (80.0-96.0); RED CELL DISTRIBUTION WIDTH 17.2 % (11.5-14.5)
[2016-12-05 13:09] LABS: ALBUMIN 1.7 GM/DL (3.2-5.2); ALBUMIN/GLOBULIN RATIO 0.35 (1.00-1.93); BILIRUBIN,TOTAL 0.9 MG/DL (0.2-1.0); CALCIUM LEVEL 8.6 MG/DL (8.5-10.1); CREATININE FOR GFR 2.25 MG/DL (0.70-1.30); GLOMERULAR FILTRATION RATE 32.3 (>56); MAGNESIUM LEVEL 1.7 MG/DL (1.8-2.4); TOTAL PROTEIN 6.5 GM/DL (6.4-8.2)
[2016-12-05 13:22] LABS: PLATELET COUNT, AUTOMATED 85 k/mm3 (150-450); POTASSIUM SERUM 6.4 MEQ/L (3.5-5.1)
[2016-12-05 13:24] LABS: BANDS 22 % (< 11); EOSINOPHILS 2 % (0-5)
[2016-12-05 13:25] LABS: ANISOCYTOSIS 2+
== END ==
LOC: M SFHCPLAZ 10:04
PROVIDERS: ATTEND Physician Assistant
DX: C67.9 Malignant neoplasm of bladder, unspecified (principal); D64.9 Anemia, unspecified; E83.42 Hypomagnesemia